=== PATIENT | female | born 1980 | race Caucasian/White ===

== ENCOUNTER → 2018-10-01 | Emergency (ER) | payer BC, SELFPAY ==
--- OUTSIDE RECORDS SUMMARY | 2018-10-01 01:14 | XMS REPORT ---
:1980 [facility] Address [address] [place] [address] Dr. June [address] [place] [id number] Care Team Providers Name Role Phone Unavailable Unavailable Unavailable Problems This patient has no known problems. Allergies, Adverse Reactions, Alerts This patient has no known allergies or adverse reactions. Medications This patient has no known medications.
== END ==
LOC: ER 01:13
DX: L60.0 Ingrowing nail (principal)

== ENCOUNTER 2018-10-06 10:32 | Emergency (ER) | payer BC ==
--- OUTSIDE RECORDS SUMMARY | 2018-10-06 10:33 | XMS REPORT ---
:1980 [facility] Address [address] [place] [address] Dr. Santana. [address] [place] [id number] Care Team Providers Name Role Phone Unavailable Unavailable Unavailable Problems This patient has no known problems. Allergies, Adverse Reactions, Alerts This patient has no known allergies or adverse reactions. Medications This patient has no known medications.
--- NOTE | 2018-10-06 11:33 | ER ---
Nurse's Notes [facility] Name: Tomasa Dahl Age: 37 yrs Sex: Female : 1980 Arrival Date: 10/06/2018 Time: 10:35 Bed 11 Private MD: Figueroa Young V Diagnosis: Acute bronchitis Presentation: 10/06 10:37 Presenting complaint: Patient states: Body aches, cough, headache, shortness of breath aj1 for the past 2 days. Transition of care: patient was not received from another setting of care. Onset of symptoms was October 04, 2017. Risk Assessment: Do you want to hurt yourself or someone else? Patient reports no desire to harm self or others. Initial Sepsis Screen: Does the patient meet any 2 criteria? No. Patient's initial sepsis screen is negative. Does the patient have a suspected source of infection? Yes: Productive cough/pneumonia. Care prior to arrival: None. 10:37 Method Of Arrival: Ambulatory aj1 10:37 Acuity: AMY 4 aj1 Triage Assessment: 10:38 General: Appears in no apparent distress. comfortable, Behavior is calm, cooperative, aj1 appropriate for age. Pain: Complains of pain in face Pain currently is 9 out of 10 on a pain scale. EENT: Reports nasal congestion nasal discharge. Neuro: Level of Consciousness is awake, alert, obeys commands. Cardiovascular: Patient's skin is warm and dry. Respiratory: Airway is patent Respiratory effort is even, unlabored, Respiratory pattern is regular, symmetrical, Parent/caregiver reports the patient having shortness of breath cough that is hacking, persistent. 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 - Social history:: Smoking status: Patient/guardian denies using tobacco. - Ebola Screening: : Patient denies travel to an Ebola-affected area in the 21 days before illness onset. Screenin:20 Abuse screen: Denies threats or abuse. Denies injuries from another. Nutritional aj1 screening: No deficits noted. Tuberculosis screening: No symptoms or risk factors identified. 12:14 Fall Risk None identified. hb Assessment: 11:20 General: Appears in no apparent distress. uncomfortable, ill, Behavior is calm, aj1 cooperative, appropriate for age. Pain: Complains of pain in face. Neuro: Level of Consciousness is awake, alert, obeys commands, Oriented to person, place, time, situation, Gait is steady, Speech is normal, Facial symmetry appears normal, Reports headache. Cardiovascular: Patient's skin is warm and dry. Respiratory: Reports shortness of breath cough that is hacking, persistent Airway is patent Respiratory effort is even, unlabored, Respiratory pattern is regular, symmetrical, Breath sounds are clear bilaterally. GI: No signs and/or symptoms were reported involving the gastrointestinal system. : No signs and/or symptoms were reported regarding the genitourinary system. EENT: Reports nasal congestion nasal discharge. Derm: No signs and/or symptoms reported regarding the dermatologic system. Skin is pink, warm \T\ dry. normal. Musculoskeletal: No signs and/or symptoms reported regarding the musculoskeletal system. Circulation, motion, and sensation intact. Vital Signs: 10:38 BP 135 / 84; Pulse 89; Resp 18; Temp 99.0(TE); Pulse Ox 98% on R/A; Weight 67.13 kg aj1 (R); Height 5 ft. 4 in. (162.56 cm) (R); Pain 8/10; 10:38 Body Mass Index 25.40 (67.13 kg, 162.56 cm) aj1 ED Course: 10:35 Patient arrived in ED. mr 10:35 Figueroa Young MD is Private Physician. mr 10:38 Triage completed. aj1 10:38 Arm band placed on Patient placed in an exam room. aj1 10:41 Deepak Scott PA is PHCP. jmm 10:41 Ori Dowd MD is Attending Physician. jmm 11:20 Fawn Glover, NINO is Primary Nurse. aj1 11:20 Patient has correct armband on for positive identification. Bed in low position. Call aj1 light in reach. Side rails up X 1. 11:20 No provider procedures requiring assistance completed. aj1 11:32 Figueroa Young MD is Referral Physician. jmm 12:14 Patient did not have IV access during this emergency room visit. hb Administered Medications: 12:01 Drug: Dexamethasone 10 mg Route: IM; Site: right deltoid; hb 12:13 Follow up: Response: No adverse reaction hb Outcome: 11:33 Discharge ordered by . gracie 12:13 Discharged to home ambulatory, with family. hb 12:13 Condition: stable 12:13 Discharge instructions given to patient, family, Instructed on discharge instructions, follow up and referral plans. medication usage, Demonstrated understanding of instructions, follow-up care, medications, Prescriptions given X 2. 12:14 Patient left the ED. hb Signatures: Fawn Glover, RN RN aj1 Deepak Scott PA PA jmm Rivera, Mary mr Baxter, Heather, RN RN hb
--- NOTE | 2018-10-06 11:34 | EDPHYS ---
Physician Documentation [facility] Name: Tomasa Dahl Age: 37 yrs Sex: Female : 1980 Arrival Date: 10/06/2018 Time: 10:35 Bed 11 Private MD: Figueroa Young V ED Physician Ori Dowd HPI: 10/06 10:45 This 37 yrs old Female presents to ER via Ambulatory with complaints of Flu jmm Symptoms. 10:45 The patient or guardian reports cough. Onset: The symptoms/episode began/occurred jmm gradually, 2 day(s) ago. Modifying factors: The symptoms are alleviated by nothing. the symptoms are aggravated by nothing. Associated signs and symptoms: Pertinent positives: fever. This is a 37 year old female with a history of anemia and migraine headaches that presents to the ED with complains of headache, cough, congestion, fever, chills for the past 2 day. Patient states headache similar to previous headaches. Denies vomiting or abdominal pain. . 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 - Social history:: Smoking status: Patient/guardian denies using tobacco. - Ebola Screening: : Patient denies travel to an Ebola-affected area in the 21 days before illness onset. ROS: 10:45 Neck: Negative for injury, pain, and swelling, Cardiovascular: Negative for chest pain, jmm palpitations, and edema. 10:45 Constitutional: Positive for body aches, fever. 10:45 ENT: Positive for rhinorrhea, sinus congestion, sinus pain. 10:45 Respiratory: Positive for cough. 10:45 All other systems are negative. Exam: 10:45 Constitutional: This is a well developed, well nourished patient who is awake, alert, jmm and in no acute distress. Head/Face: atraumatic. Eyes: EOMI, no conjunctival erythema appreciated ENT: Moist Mucus Membranes Neck: Trachea midline, Supple Chest/axilla: Normal chest wall appearance and motion. Cardiovascular: Regular rate and rhythm. No edema appreciated Respiratory: Normal respirations, no respiratory distress appreciated Abdomen/GI: Non distended, soft 10:45 Skin: General appearance color normal MS/ Extremity: Moves all extremities, no obvious deformities appreciated, no edema noted to the lower extremities Neuro: Awake and alert, normal gait Psych: Behavior is normal, Mood is normal, Patient is cooperative and pleasant 10:45 Respiratory: the patient does not display signs of respiratory distress, Respirations: normal, Breath sounds: are clear throughout. 10:45 Abdomen/GI: Vital Signs: 10:38 BP 135 / 84; Pulse 89; Resp 18; Temp 99.0(TE); Pulse Ox 98% on R/A; Weight 67.13 kg aj1 (R); Height 5 ft. 4 in. (162.56 cm) (R); Pain 8/10; 10:38 Body Mass Index 25.40 (67.13 kg, 162.56 cm) aj1 MDM: 10:45 Patient medically screened. [facility] 11:30 Data reviewed: vital signs, nurses notes. Data interpreted: Pulse oximetry: on room air jmm is 98 %. Interpretation: normal. Counseling: I had a detailed discussion with the patient and/or guardian regarding: the historical points, exam findings, and any diagnostic results supporting the discharge/admit diagnosis, lab results, the need for outpatient follow up, to return to the emergency department if symptoms worsen or persist or if there are any questions or concerns that arise at home. ED course: Patient is alert and non toxic in appearance in the ED. Lungs CTA. Neck is supple, I do not suspect meningitis. Patient prescribed oral antibiotics and advised to return to the ED if she develops shortness of breath or worsening symptoms. Patient understood and agrees with the plan of care. . 10/06 10:41 Order name: Flu; Complete Time: 11:30 aj1 Administered Medications: 12:01 Drug: Dexamethasone 10 mg Route: IM; Site: right deltoid; hb 12:13 Follow up: Response: No adverse reaction hb Disposition: 13:33 Co-signature as Attending Physician, Ori Dowd MD. rn Disposition: 10/06/18 11:33 Discharged to Home. Impression: Acute bronchitis. - Condition is Stable. - Discharge Instructions: Acute Bronchitis, Adult. - Prescriptions for Zithromax Z- Benjamin 250 mg Oral Tablet - take 1 tablet by ORAL route as directed for 5 days Day 1 - take two (2) tablets one time. Day 2, 3, 4 , 5 take one (1) tablet once daily.; 6 tablet. Albuterol Sulfate 90 mcg/actuation - inhale 1-2 puff by INHALATION route every 4-6 hours; 1 Inhaler. - Medication Reconciliation Form, Thank You Letter, Antibiotic Education, Prescription Opioid Use, Work release form form. - Follow up: Figueroa Young MD; When: 2 - 3 days; Reason: Recheck today's complaints, Continuance of care, Re-evaluation by your physician. Signatures: Dispatcher [employer] EDFawn Locke RN RN aj1 Deepak Scott PA PA jmm Nieto, Roman, MD MD rn Baxter, Heather, RN RN hb Corrections: (The following items were deleted from the chart) 12:14 11:33 10/06/2018 11:33 Discharged to Home. Impression: Acute bronchitis. Condition is hb Stable. Forms are Medication Reconciliation Form, Thank You Letter, Antibiotic Education, Prescription Opioid Use. Follow up: Figueroa Young; When: 2 - 3 days; Reason: Recheck today's complaints, Continuance of care, Re-evaluation by your physician. gracie
[2018-10-06] MEDS ORDERED: DEXAMETHASONE 10 MG/ML VIAL ONE (12:15)
[2018-10-06 12:25] VITALS: BP 135/84; TEMP 99; O2SAT 98
== END 2018-10-06 12:14 | disposition home or self-care (01) ==
LOC: ER 10:32
DX: J20.9 Acute bronchitis, unspecified (principal); Z88.6 Allergy status to analgesic agent
CPT/HCPCS: 87804; 96372; 99283; J1100

== ENCOUNTER 2018-11-16 15:52 | Emergency (ER) | payer BC ==
--- OUTSIDE RECORDS SUMMARY | 2018-11-16 16:53 | XMS REPORT ---
:1980 [facility] Address [address] [place] [address] Dr. Santana. [address] [place] [id number] Care Team Providers Name Role Phone Unavailable Unavailable Unavailable Problems This patient has no known problems. Allergies, Adverse Reactions, Alerts This patient has no known allergies or adverse reactions. Medications This patient has no known medications.
[2018-11-16 18:11] LABS: Absolute Lymphocytes (CBC) 1.1 K/uL (0.7-4.9); Absolute Monocytes 0.9 K/uL (0.1-1.3); Absolute Neutrophil 1.9 K/uL (1.8-8.0); Basophils % 0.6 % (0-1.3); Eosinophils % 3.2 % (0-4.4); Hematocrit 31.2 % (36.0-45.0); Lymphocytes % 27.4 % (15.3-44.8); Monocytes % 22.2 % (3.3-12.3); RBC Red Blood Cell Count 4.12 M/uL (3.86-4.86)
[2018-11-16] MEDS ORDERED: NA CHLORIDE 0.9% 1,000 ML ONE (18:12)
[2018-11-16 18:26] LABS: BUN Blood Urea Nitrogen 8 mg/dL (7-18); Bicarbonate 28 mmol/L (21-32); Glucose Level 71 mg/dL (74-106); Potassium 3.5 mmol/L (3.5-5.1); Sodium Level 143 mmol/L (136-145)
--- NOTE | 2018-11-16 19:08 | ER ---
Nurse's Notes [facility] Name: Tomasa Dahl Age: 37 yrs Sex: Female : 1980 Arrival Date: 11/16/2018 Time: 15:53 Bed 28 Private MD: Figueroa Young V Diagnosis: Abnormal uterine and vaginal bleeding, unspecified;Anemia, unspecified Presentation: 11/16 16:20 Presenting complaint: Patient states: weakness, light headed, pad are drenched, 3 pads ch an hour. vasectomy, denies . Transition of care: patient was not received from another setting of care. Onset of symptoms was November 16, 2018. Risk Assessment: Do you want to hurt yourself or someone else? Patient reports no desire to harm self or others. Initial Sepsis Screen: Does the patient meet any 2 criteria? No. Patient's initial sepsis screen is negative. Does the patient have a suspected source of infection? No. Patient's initial sepsis screen is negative. Care prior to arrival: Medication(s) given: depo to treat bleeding, due for another one;. 16:20 Method Of Arrival: Ambulatory 16:20 Acuity: AMY 3 ch Triage Assessment: 16:22 General: Appears in no apparent distress. comfortable, Behavior is calm, cooperative, ch appropriate for age. Pain: Denies pain. : Reports vaginal bleeding that is bright red, with clots, heavy flow. 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 Patient has never been vaccinated. - Social history:: Smoking status: Patient uses tobacco products, denies chronic smoking, but will smoke occasionally, Patient/guardian denies using alcohol, street drugs. - Ebola Screening: : Patient negative for fever greater than or equal to 101.5 degrees Fahrenheit, and additional compatible Ebola Virus Disease symptoms Patient denies exposure to infectious person Patient denies travel to an Ebola-affected area in the 21 days before illness onset No symptoms or risks identified at this time. - Family history:: not pertinent. Screenin:07 Abuse screen: Denies threats or abuse. Denies injuries from another. Nutritional rv screening: No deficits noted. Tuberculosis screening: No symptoms or risk factors identified. Fall Risk None identified. Assessment: 18:14 General: Appears in no apparent distress. comfortable, Behavior is calm, cooperative. rv Pain: Denies pain. Neuro: Level of Consciousness is awake, alert, obeys commands, Oriented to person, place, time, situation. Cardiovascular: Capillary refill < 3 seconds. Respiratory: Airway is patent. GI: Abdomen is flat. : Vaginal discharge is Reports vaginal bleeding that is heavy flow. EENT: No signs and/or symptoms were reported regarding the EENT system. Derm: Skin is intact. Derm: No signs and/or symptoms reported regarding the dermatologic system. Vital Signs: 16:22 BP 126 / 84; Pulse 81; Resp 16; Temp 97.4; Pulse Ox 99% on R/A; Weight 67.13 kg; Height 5 ft. 4 in. (162.56 cm); Pain 0/10; 18:16 BP 134 / 96 RA; Pulse 71; Resp 18 S; Pulse Ox 100% on R/A; rv 18:30 BP 134 / 90 RA; Pulse 77; Resp 18 S; Pulse Ox 100% on R/A; rv 19:00 BP 124 / 88 RA; Pulse 67; Resp 17 S; Pulse Ox 100% on R/A; rv 19:15 BP 114 / 82 RA; Pulse 74; Resp 16 S; Pulse Ox 100% on R/A; rv 16:22 Body Mass Index 25.40 (67.13 kg, 162.56 cm) ED Course: 15:53 Patient arrived in ED. as 15:53 Shayne Clemons MD is Private Physician. as 15:53 Figueroa Young MD is Private Physician. as 16:21 Triage completed. 16:22 Arm band placed on left wrist. Patient placed in waiting room. 17:42 Murali Tipton MD is Attending Physician. kushal 17:50 Inserted saline lock: 20 gauge in right antecubital area, using aseptic technique. rv Blood collected. 18:08 Patient has correct armband on for positive identification. Placed in gown. Bed in low rv position. Side rails up X 1. Adult w/ patient. Pulse ox on. NIBP on. 18:14 Abo/rh Typing Sent. rv 18:14 Basic Metabolic Panel Sent. rv 18:14 CBC with Diff Sent. rv 18:45 Ultrasound completed. Patient tolerated well. sg3 18:47 US Transvaginal Study (Probe) In Process Unspecified. EDMS 19:05 Figueroa Young MD is Referral Physician. kushal 19:08 Justice Andrade MD is Referral Physician. kushal 19:33 No provider procedures requiring assistance completed. IV discontinued, bleeding rv controlled, No redness/swelling at site. Pressure dressing applied. Administered Medications: 18:06 Drug: NS 0.9% 1000 ml Route: IV; Rate: 1 bolus; Site: left antecubital; rv 19:32 Follow up: IV Status: Completed infusion rv 19:20 Drug: DepoProvera - medroxyPROGESTERone 150 mg Route: IM; Site: left deltoid; rv 19:34 Follow up: Response: Medication administered at discharge. rv Outcome: 19:07 Discharge ordered by . kushal 19:33 Discharged to home ambulatory. rv 19:33 Condition: good 19:33 Discharge instructions given to patient, family, Instructed on discharge instructions, follow up and referral plans. medication usage, Demonstrated understanding of instructions, follow-up care, medications, Prescriptions given X 1. 19:34 Patient left the ED. rv Signatures: Dispatcher [employer] Francine Rausch, RN Murali Calderon ch, MD MD cha Martinez, Amelia as Godinez, Sarah sg3 Norbert Hung RN RN rv
--- NOTE | 2018-11-16 19:08 | EDPHYS ---
Physician Documentation [facility] Name: Tomasa Dahl Age: 37 yrs Sex: Female : 1980 Arrival Date: 11/16/2018 Time: 15:53 Bed 28 Private MD: Figueroa Young V ED Physician Murali Tipton HPI: 11/16 18:15 This 37 yrs old Female presents to ER via Ambulatory with complaints of kushal Vaginal Bleeding, Weakness. 18:15 The patient presents with vaginal bleeding that is. Onset: The symptoms/episode kushal began/occurred today. Modifying factors: The symptoms are alleviated by nothing, the symptoms are aggravated by nothing. Associated signs and symptoms: Pertinent positives:. Severity of symptoms: At their worst the symptoms were mild, in the emergency department the symptoms are unchanged. The patient is sexually active. The patient has not experienced similar symptoms in the past. 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 Patient has never been vaccinated. - Social history:: Smoking status: Patient uses tobacco products, denies chronic smoking, but will smoke occasionally, Patient/guardian denies using alcohol, street drugs. - Ebola Screening: : Patient negative for fever greater than or equal to 101.5 degrees Fahrenheit, and additional compatible Ebola Virus Disease symptoms Patient denies exposure to infectious person Patient denies travel to an Ebola-affected area in the 21 days before illness onset No symptoms or risks identified at this time. - Family history:: not pertinent. ROS: 18:15 Constitutional: Negative for fever, chills, and weight loss, Eyes: Negative for injury, kushal pain, redness, and discharge, ENT: Negative for injury, pain, and discharge, Neck: Negative for injury, pain, and swelling, Cardiovascular: Negative for chest pain, palpitations, and edema, Respiratory: Negative for shortness of breath, cough, wheezing, and pleuritic chest pain, Abdomen/GI: Negative for abdominal pain, nausea, vomiting, diarrhea, and constipation, Back: Negative for injury and pain, MS/Extremity: Negative for injury and deformity, Skin: Negative for injury, rash, and discoloration, Neuro: Negative for headache, weakness, numbness, tingling, and seizure, Psych: Negative for depression, anxiety, suicide ideation, homicidal ideation, and hallucinations, Allergy/Immunology: Negative for hives, rash, and allergies, Endocrine: Negative for neck swelling, polydipsia, polyuria, polyphagia, and marked weight changes, Hematologic/Lymphatic: Negative for swollen nodes, abnormal bleeding, and unusual bruising. 18:15 : Positive for vaginal bleeding. Exam: 18:15 Constitutional: This is a well developed, well nourished patient who is awake, alert, kushal and in no acute distress. Head/Face: Normocephalic, atraumatic. Eyes: Pupils equal round and reactive to light, extra-ocular motions intact. Lids and lashes normal. Conjunctiva and sclera are non-icteric and not injected. Cornea within normal limits. Periorbital areas with no swelling, redness, or edema. ENT: Nares patent. No nasal discharge, no septal abnormalities noted. Tympanic membranes are normal and external auditory canals are clear. Oropharynx with no redness, swelling, or masses, exudates, or evidence of obstruction, uvula midline. Mucous membranes moist. Neck: Trachea midline, no thyromegaly or masses palpated, and no cervical lymphadenopathy. Supple, full range of motion without nuchal rigidity, or vertebral point tenderness. No Meningismus. Chest/axilla: Normal chest wall appearance and motion. Nontender with no deformity. No lesions are appreciated. Cardiovascular: Regular rate and rhythm with a normal S1 and S2. No gallops, murmurs, or rubs. Normal PMI, no JVD. No pulse deficits. Respiratory: Lungs have equal breath sounds bilaterally, clear to auscultation and percussion. No rales, rhonchi or wheezes noted. No increased work of breathing, no retractions or nasal flaring. Abdomen/GI: Soft, non-tender, with normal bowel sounds. No distension or tympany. No guarding or rebound. No evidence of tenderness throughout. Back: No spinal tenderness. No costovertebral tenderness. Full range of motion. Skin: Warm, dry with normal turgor. Normal color with no rashes, no lesions, and no evidence of cellulitis. MS/ Extremity: Pulses equal, no cyanosis. Neurovascular intact. Full, normal range of motion. Neuro: Awake and alert, GCS 15, oriented to person, place, time, and situation. Cranial nerves II-XII grossly intact. Motor strength 5/5 in all extremities. Sensory grossly intact. Cerebellar exam normal. Normal gait. Psych: Awake, alert, with orientation to person, place and time. Behavior, mood, and affect are within normal limits. Vital Signs: 16:22 BP 126 / 84; Pulse 81; Resp 16; Temp 97.4; Pulse Ox 99% on R/A; Weight 67.13 kg; Height ch 5 ft. 4 in. (162.56 cm); Pain 0/10; 18:16 BP 134 / 96 RA; Pulse 71; Resp 18 S; Pulse Ox 100% on R/A; rv 18:30 BP 134 / 90 RA; Pulse 77; Resp 18 S; Pulse Ox 100% on R/A; rv 19:00 BP 124 / 88 RA; Pulse 67; Resp 17 S; Pulse Ox 100% on R/A; rv 19:15 BP 114 / 82 RA; Pulse 74; Resp 16 S; Pulse Ox 100% on R/A; rv 16:22 Body Mass Index 25.40 (67.13 kg, 162.56 cm) ch MDM: 17:42 Patient medically screened. [facility] 18:17 Data reviewed: vital signs, nurses notes, lab test result(s), radiologic studies, [facility] ultrasound. 11/16 17:44 Order name: Abo/rh Typing [facility] 11/16 17:44 Order name: Basic Metabolic Panel [facility] 11/16 17:44 Order name: CBC with Diff [facility] 11/16 17:44 Order name: Type And Screen [facility] 11/16 17:44 Order name: Basic Metabolic Panel; Complete Time: 18:28 [facility] 11/16 17:44 Order name: US Transvaginal Study (Probe) [facility] 11/16 17:44 Order name: CBC with Automated Diff [facility] 11/16 18:13 Order name: Urine Dipstick--Ancillary (enter results) 11/16 18:14 Order name: Urine --Ancillary (enter results) 11/16 18:14 Order name: Urine --Ancillary [facility] 11/16 18:31 Order name: CBC Smear Scan [facility] 11/16 17:38 Order name: Urine Test (obtain specimen); Complete Time: 18:14 [facility] 11/16 17:39 Order name: Urine Dipstick-Ancillary (obtain specimen); Complete Time: 18:14 [facility] 11/16 17:44 Order name: IV Saline Lock; Complete Time: 18:07 [facility] 11/16 17:44 Order name: Labs collected and sent; Complete Time: 18:07 [facility] 11/16 17:44 Order name: NPO; Complete Time: 18: [facility] 11/16 18:46 Order name: PO challenge: juice; Complete Time: 19:11 [facility] Administered Medications: 18:06 Drug: NS 0.9% 1000 ml Route: IV; Rate: 1 bolus; Site: left antecubital; rv 19:32 Follow up: IV Status: Completed infusion rv 19:20 Drug: DepoProvera - medroxyPROGESTERone 150 mg Route: IM; Site: left deltoid; rv 19:34 Follow up: Response: Medication administered at discharge. rv Disposition: 11/16/18 19:07 Discharged to Home. Impression: Abnormal uterine and vaginal bleeding, unspecified, Anemia, unspecified. - Condition is Stable. - Discharge Instructions: Abnormal Uterine Bleeding, Iron Deficiency Anemia, Adult, Anemia, Nonspecific, Iron-Rich Diet, Dysmenorrhea, Abnormal Uterine Bleeding, [id number], Dysmenorrhea, [id number]. - Prescriptions for Ferrous Sulfate 325 mg (65 mg Iron) Oral Tablet - take 1 tablet by ORAL route every 8 hours; 90 tablet. - Medication Reconciliation Form, Thank You Letter, Antibiotic Education, Prescription Opioid Use form. - Follow up: Figueroa Young MD; When: 2 - 3 days; Reason: Recheck today's complaints, Continuance of care, Re-evaluation by your physician. Follow up: Private Physician; When: 2 - 3 days; Reason: Recheck today's complaints, Continuance of care, Re-evaluation by your physician. Follow up: Justice Andrade MD; When: 2 - 3 days; Reason: Recheck today's complaints, Re-evaluation by your physician. - Problem is new. - Symptoms have improved. Signatures: Dispatcher [employer] EDFrancine Adair RN RN ch Anderson, Corey, MD MD cha Mickail, Joel, PA PA jmm Vicente, Norbert, RN RN rv Corrections: (The following items were deleted from the chart) 18:20 17:44 ABO/RH typing ordered. [facility] EDOR 19:08 19:07 11/16/2018 19:07 Discharged to Home. Impression: Abnormal uterine and vaginal kushal bleeding, unspecified; Anemia, unspecified. Condition is Stable. Forms are Medication Reconciliation Form, Thank You Letter, Antibiotic Education, Prescription Opioid Use. Follow up: Figueroa Young; When: 2 - 3 days; Reason: Recheck today's complaints, Continuance of care, Re-evaluation by your physician. Follow up: Private Physician; When: 2 - 3 days; Reason: Recheck today's complaints, Continuance of care, Re-evaluation by your physician. Problem is new. Symptoms have improved. kushal 19:34 19:08 11/16/2018 19:07 Discharged to Home. Impression: Abnormal uterine and vaginal rv bleeding, unspecified; Anemia, unspecified. Condition is Stable. Discharge Instructions: Abnormal Uterine Bleeding, Anemia, Nonspecific, Dysmenorrhea, Abnormal Uterine Bleeding, Grqy-xe-Feky, Dysmenorrhea, Xmdl-eq-Depm. Forms are Medication Reconciliation Form, Thank You Letter, Antibiotic Education, Prescription Opioid Use. Follow up: Figueroa Young; When: 2 - 3 days; Reason: Recheck today's complaints, Continuance of care, Re-evaluation by your physician. Follow up: Private Physician; When: 2 - 3 days; Reason: Recheck today's complaints, Continuance of care, Re-evaluation by your physician. Follow up: Justice Andrade; When: 2 - 3 days; Reason: Recheck today's complaints, Re-evaluation by your physician. Problem is new. Symptoms have improved. kushal
[2018-11-16 19:18] LABS: Urine Blood 2+ (NEG); Urine Glucose NEGATIVE (NEG); Urine Protein NEGATIVE (NEG); Urine Specific Gravity 1.015 (1.005-1.030)
[2018-11-16] MEDS ORDERED: MEDROXYPROGEST ACET 150 MG/ML IM ONE (19:30)
--- NOTE | 2018-11-16 19:51 | RAD REPORT ---
EXAM DESCRIPTION: US - Transvaginal Study Probe - 11/16/2018 6:47 pm CLINICAL HISTORY: Abdominal pain, pelvic pain COMPARISON: July 2014 TECHNIQUE: Endovaginal sonography was performed. FINDINGS: A 2.8 centimeter anechoic left ovarian cyst is present. There is a trace amount of free fl uid adjacent to the left ovary. No other finding to suggest cyst rupture or hemorrhage. Doppler evalu ation shows normal blood flow within the left ovarian stroma. No right ovary abnormality. Normal blood flow seen in the right ovary. Endometrium is thickened at 17 mm. No discrete endometrial mass or polyp. No myometrial mass. Uterus is normal size. IMPRESSION: Approximately 2.8 centimeter left ovarian cyst without rupture or hemorrhage finding. Minimal free fluid is present within physiologic limits.
[2018-11-16 20:23] LABS: Anisocytosis 1+; Blood Morphology Comment NOTED (NOT SEEN); Hypochromasia 1+; Macrocytosis 1+; Ovalocytes 1+; Platelet Estimate ADEQ; Poikilocytosis 1+
[2018-11-16 20:38] VITALS: TEMP 97.4
[2018-11-16 20:42] VITALS: O2SAT 100
[2018-11-16 20:45] VITALS: BP 114/82
== END 2018-11-16 19:34 | disposition home or self-care (01) ==
LOC: ER 15:52
DX: D64.9 Anemia, unspecified (principal); Z72.0 Tobacco use; Z88.6 Allergy status to analgesic agent
CPT/HCPCS: 36415; 76830; 80048; 81003; 81025; 85025; 86850; 86900; 86901; 96360; 96372; 99284; J1050; J7030

== ENCOUNTER 2021-07-18 14:00 | Emergency (ER) | payer BC, SELFPAY ==
--- NOTE | 2021-07-18 14:13 | ER ---
Nurse's Notes [facility] Name: Tomasa Dahl Age: 40 yrs Sex: Female : 1980 Arrival Date: 07/18/2021 Time: 14:02 Bed 10 Private MD: Diagnosis: Sciatica, right side Presentation: 07/18 14:10 Chief complaint: Patient states: right leg pain that began 1-2 days ago. Pt states "I aa5 think it's my sciatic nerve". Coronavirus screen: At this time, the client does not indicate any symptoms associated with coronavirus-19. Ebola Screen: No symptoms or risks identified at this time. Initial Sepsis Screen: Does the patient meet any 2 criteria? No. Patient's initial sepsis screen is negative. Does the patient have a suspected source of infection? No. Patient's initial sepsis screen is negative. Risk Assessment: Do you want to hurt yourself or someone else? Patient reports no desire to harm self or others. Onset of symptoms was July 2021. 14:10 Method Of Arrival: Ambulatory aa5 14:10 Acuity: AMY 4 aa5 Historical: - Allergies: 14:12 No Known Allergies; aa5 - PMHx: 14:11 Anemia; aa5 - PSHx: 14:11 None; aa5 - Immunization history:: Adult Immunizations unknown. - Social history:: Smoking status: Patient denies any tobacco usage or history of. Assessment: 14:16 Reassessment: Patient is alert, oriented x 3, equal unlabored respirations, skin aa5 warm/dry/pink. Vital Signs: 14:10 BP 121 / 74; Pulse 75; Resp 16 S; Temp 98.0(TE); Pulse Ox 100% on R/A; Weight 58.97 kg aa5 (R); Height 5 ft. 4 in. (162.56 cm); 14:10 Body Mass Index 22.31 (58.97 kg, 162.56 cm) aa5 ED Course: 14:02 Patient arrived in ED. as 14:03 Miguelina Engle [facility]C [facility]. kb 14:03 Emerson Mejias MD is Attending Physician. kb 14:10 Arm band placed on. aa5 14:11 Triage completed. aa5 14:16 No provider procedures requiring assistance completed. Patient did not have IV access aa5 during this emergency room visit. Administered Medications: No medications were administered Outcome: 14:13 Discharge ordered by MD. tomlin 14:16 Discharged to home ambulatory, with significant other. aa5 14:16 Condition: stable 14:16 Discharge instructions given to patient, Instructed on discharge instructions, follow up and referral plans. medication usage, Demonstrated understanding of instructions, follow-up care, medications, Prescriptions given X 2. 14:16 Patient left the ED. aa5 Signatures: Miguelina Engle, CARLOS-C WILDLIFE BIOSTATION RESEARCH ECOLOGIST-Kaycee Adams Audri, RN RN aa5 Corrections: (The following items were deleted from the chart) 14:12 14:11 Allergies: Motrin; aa5 aa5 14:13 14:10 BP 121 / 74; Pulse 75bpm; Resp 16bpm; Spontaneous; Pulse Ox 100% RA; Temp 98.0F aa5 Temporal; aa5
--- NOTE | 2021-07-18 14:14 | EDPHYS ---
Physician Documentation [facility] Name: Tomasa Dahl Age: 40 yrs Sex: Female : 1980 Arrival Date: 07/18/2021 Time: 14:02 Bed 10 Private MD: ED Physician Emerson Mejias HPI: 07/18 14:38 This 40 yrs old Female presents to ER via Ambulatory with complaints of Leg kb Pain, Thigh Pain. 14:38 The patient presents with pain, tenderness. The complaints affect the right gluteal kb fold and right hamstring. Context: The problem was sustained at home, resulted from an unknown cause, the patient can fully bear weight, the patient is able to ambulate. The patient has not experienced similar symptoms in the past. The patient has not recently seen a physician. 14:39 Onset: The symptoms/episode began/occurred 2 day(s) ago. Modifying factors: The kb symptoms are alleviated by nothing. the symptoms are aggravated by nothing. Associated signs and symptoms: The patient has no apparent associated signs or symptoms. Treatment prior to arrival includes: no previous treatment. Severity of symptoms: At their worst the symptoms were moderate, in the emergency department the symptoms are unchanged. Pt reports sciatica for 2 days on right side. Historical: - Allergies: 14:12 No Known Allergies; aa5 - PMHx: 14:11 Anemia; aa5 - PSHx: 14:11 None; aa5 - Immunization history:: Adult Immunizations unknown. - Social history:: Smoking status: Patient denies any tobacco usage or history of. ROS: 14:40 Constitutional: Negative for fever, chills, and weight loss. kb 14:40 MS/extremity: Positive for pain, of the right hamstring and right gluteal fold. 14:40 All other systems are negative. Exam: 14:40 Constitutional: This is a well developed, well nourished patient who is awake, alert, kb and in no acute distress. Head/Face: Normocephalic, atraumatic. ENT: Moist Mucous membranes Respiratory: Respirations even and unlabored. No increased work of breathing, no retractions or nasal flaring. Back: No spinal tenderness. No costovertebral tenderness. Full range of motion. Skin: Warm, dry with normal turgor. Normal color. MS/ Extremity: Pulses equal, no cyanosis. Neurovascular intact. Full, normal range of motion. Neuro: Awake and alert, GCS 15, oriented to person, place, time, and situation. Moves all extremities. Normal gait. Psych: Awake, alert, with orientation to person, place and time. Behavior, mood, and affect are within normal limits. Vital Signs: 14:10 BP 121 / 74; Pulse 75; Resp 16 S; Temp 98.0(TE); Pulse Ox 100% on R/A; Weight 58.97 kg aa5 (R); Height 5 ft. 4 in. (162.56 cm); 14:10 Body Mass Index 22.31 (58.97 kg, 162.56 cm) aa5 MDM: 14:13 Patient medically screened. kb 14:39 Data reviewed: vital signs, nurses notes. Data interpreted: Pulse oximetry: on room air kb is 100 %. Interpretation: normal. Counseling: I had a detailed discussion with the patient and/or guardian regarding: the historical points, exam findings, and any diagnostic results supporting the discharge/admit diagnosis, the need for outpatient follow up, a family practitioner, to return to the emergency department if symptoms worsen or persist or if there are any questions or concerns that arise at home. Administered Medications: No medications were administered Disposition: 07/19 09:14 Co-signature as Attending Physician, Emerson Mejias MD I agree with the assessment and sp3 plan of care. Disposition Summary: 07/18/21 14:13 Discharge Ordered Location: Home kb Condition: Stable kb Diagnosis - Sciatica, right side kb Followup: kb - With: Emergency Department - When: As needed - Reason: Worsening of condition Followup: kb - With: Private Physician - When: 2 - 3 days - Reason: Recheck today's complaints, Continuance of care, Re-evaluation by your physician Discharge Instructions: - Discharge Summary Sheet kb - Sciatica, [id number] kb Forms: - Medication Reconciliation Form kb - Thank You Letter kb - Antibiotic Education kb - Prescription Opioid Use kb Prescriptions: - Prednisone 20 mg Oral Tablet - take 1 tablet by ORAL route once daily for 5 days; 5 tablet; Refills: 0, kb Product Selection Permitted - Cyclobenzaprine 10 mg Oral Tablet - take 1 tablet by ORAL route every 8 hours As needed; 21 tablet; Refills: 0, kb Product Selection Permitted Signatures: Miguelina Engle FNP-C BONDING MACHINE SETTER-Tiffany Estrada, RN RN aa5 Emerson Mejias MD MD sp3 Corrections: (The following items were deleted from the chart) 07/18 14:12 14:11 Allergies: Motrin; aa5 aa5
[2021-07-18 14:36] VITALS: BP 121/74; TEMP 98; O2SAT 100
--- OUTSIDE RECORDS SUMMARY | 2021-07-23 16:27 | XMS REPORT | Continuity of Care Document ---
:[address] [facility] t Address [address] [place] [address] Dr. June [address] [place] [id number] Care Team Providers Name Role Phone Unavailable Unavailable Unavailable Problems This patient has no known problems. Allergies, Adverse Reactions, Alerts This patient has no known allergies or adverse reactions. Medications This patient has no known medications. Procedures This patient has no known procedures. Results This patient has no known results.
== END 2021-07-18 14:16 | disposition home or self-care (01) ==
LOC: ER 14:00
DX: M54.31 Sciatica, right side (principal)
CPT/HCPCS: 99282

== ENCOUNTER 2021-08-07 20:16 | Emergency (ER) | payer SELFPAY ==
--- OUTSIDE RECORDS SUMMARY | 2021-08-07 20:19 | XMS REPORT | Continuity of Care Document ---
:1980 Author Organization [facility] t Address [address] [place] [address] Dr. June [address] [place] [id number] Care Team Providers Name Role Phone Unavailable Unavailable Unavailable Problems This patient has no known problems. Allergies, Adverse Reactions, Alerts This patient has no known allergies or adverse reactions. Medications This patient has no known medications. Procedures This patient has no known procedures. Results This patient has no known results.
[2021-08-07] MEDS ORDERED: KETOROLAC 30 MG/ML INJ ONE (21:11)
[2021-08-07] MEDS ORDERED: METOCLOPRAMIDE 10 MG/2mL INJ ONE (21:11)
[2021-08-07] MEDS ORDERED: DIPHENHYDRAMINE 50 MG/ML VIAL ONE (21:11)
[2021-08-07] MEDS ORDERED: NA CHLORIDE 0.9% 1,000 ML ONE (21:11)
--- NOTE | 2021-08-07 22:09 | ER ---
Nurse's Notes [facility] [place], [place] Name: Tomasa Dahl Age: 40 yrs Sex: Female : 1980 Arrival Date: 08/07/2021 Time: 20:19 Bed 16 Private MD: Diagnosis: Headache Presentation: 08/07 20:30 Chief complaint: Patient states: Headache X 2 days with photophobia. Coronavirus ld1 screen: At this time, the client does not indicate any symptoms associated with coronavirus-19. Ebola Screen: No symptoms or risks identified at this time. Initial Sepsis Screen: Does the patient meet any 2 criteria? No. Patient's initial sepsis screen is negative. Does the patient have a suspected source of infection? No. Patient's initial sepsis screen is negative. Risk Assessment: Do you want to hurt yourself or someone else? Patient reports no desire to harm self or others. Onset of symptoms was August 07, 2021. 20:30 Method Of Arrival: Ambulatory ld1 20:30 Acuity: AMY 4 ld1 Triage Assessment: 20:31 Headache History: The patient has had previous headaches and this one is similar to ld1 previous episodes. General: Appears in no apparent distress. comfortable, Behavior is calm, cooperative, appropriate for age. Pain: Complains of pain in face Pain does not radiate. Pain currently is 7 out of 10 on a pain scale. Quality of pain is described as throbbing, Pain began 2-3 days ago. Is continuous, Also complains of no other associated symptoms. EENT: No signs and/or symptoms were reported regarding the EENT system. Neuro: Level of Consciousness is awake, alert, obeys commands, Oriented to person, place, time, situation. Cardiovascular: Capillary refill < 3 seconds Patient's skin is warm and dry. Respiratory: Airway is patent Respiratory effort is even, unlabored, Respiratory pattern is regular, symmetrical. GI: Abdomen is flat, non-distended. : No signs and/or symptoms were reported regarding the genitourinary system. Derm: No signs and/or symptoms reported regarding the dermatologic system. Musculoskeletal: No signs and/or symptoms reported regarding the musculoskeletal system. 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 - Social history:: Smoking status: Patient denies any tobacco usage or history of. Patient/guardian denies using alcohol. Screenin:09 Abuse screen: Denies threats or abuse. Denies injuries from another. Nutritional kd3 screening: No deficits noted. Tuberculosis screening: No symptoms or risk factors identified. Fall Risk IV access (20 points). Assessment: 22:26 Reassessment: Patient is alert, oriented x 3, equal unlabored respirations, skin bb warm/dry/pink. pt resting quietly, IV site intact, patent, with fluids infusing, family at bedside pt awaiting completion of IV fluids prior to discharge states she has no pain now. 22:34 Reassessment: Patient is alert, oriented x 3, equal unlabored respirations, skin bb warm/dry/pink. pt verbalized understanding of and agrees to plan of care discharge instructions given pt ambulated with steady gait to exit accompanied by spouse. Vital Signs: 20:30 BP 139 / 76; Pulse 66; Resp 18; Temp 98.3(TE); Pulse Ox 100% on R/A; Weight 58.97 kg; ld1 Height 5 ft. 4 in. (162.56 cm); Pain 0/10; 22:08 BP 135 / 83; Resp 18; Pulse Ox 100% on R/A; kd3 20:30 Body Mass Index 22.31 (58.97 kg, 162.56 cm) ld1 Sanya Coma Score: 22:08 Eye Response: spontaneous(4). Verbal Response: oriented(5). Motor Response: obeys kb commands(6). Total: 15. ED Course: 20:19 Patient arrived in ED. bp1 20:27 Miguelina Engle FNP-C is PHCP. kb 20:28 Wero Rodriguez MD is Attending Physician. kb 20:31 Triage completed. ld1 20:31 Arm band placed on left wrist. ld1 21:57 Maryjo Jim, NINO is Primary Nurse. kd3 22:09 Patient has correct armband on for positive identification. Bed in low position. Call kd3 light in reach. Side rails up X 1. 22:09 No provider procedures requiring assistance completed. kd3 22:26 IV is patent, is intact, with fluids infusing freely. bb 22:35 IV discontinued, intact, bleeding controlled, No redness/swelling at site. Pressure bb dressing applied. Administered Medications: 21:57 Drug: NS 0.9% 1000 ml Route: IV; Rate: 1000 ml; Site: left hand; kd3 22:33 Follow up: IV Status: Completed infusion; IV Intake: 900ml bb 21:58 Drug: Ketorolac 30 mg Route: IVP; Site: left hand; kd3 22:10 Follow up: Response: No adverse reaction kd3 22:28 Follow up: Response: No adverse reaction; Pain is decreased bb 21:59 Drug: Reglan (metoCLOPramide) 10 mg Route: IVP; Site: left hand; kd3 22:10 Follow up: Response: No adverse reaction kd3 22:28 Follow up: Response: No adverse reaction; Pain is decreased bb 21:59 Drug: Benadryl (diphenhydrAMINE) 12.5 mg Route: IVP; Site: left hand; kd3 22:10 Follow up: Response: No adverse reaction kd3 22:28 Follow up: Response: No adverse reaction; Pain is decreased bb Intake: 22:33 IV: 900ml; Total: 900ml. bb Outcome: 22:08 Discharge ordered by . kb 22:35 Discharged to home ambulatory, with family. bb 22:35 Condition: stable 22:35 Discharge instructions given to patient, Instructed on discharge instructions, follow up and referral plans. Demonstrated understanding of instructions, follow-up care. 22:35 Patient left the ED. bb Signatures: Miguelina Engle, CHIEF PROCUREMENT OFFICER-C CARLOS-Tiffanie Arriaga RN RN bb Linda Salcedo Lauren RN RN ld1 Maryjo Jim RN RN kd3 Corrections: (The following items were deleted from the chart) 20:32 20:31 PSHx: None; ld1 ld1 20:32 20:31 PSHx: Appendectomy; ld1 ld1
--- NOTE | 2021-08-07 22:09 | EDPHYS ---
Physician Documentation [facility] Name: Tomasa Dahl Age: 40 yrs Sex: Female : 1980 Arrival Date: 08/07/2021 Time: 20:19 Bed 16 Private MD: ED Physician Wero Rodriguez HPI: 08/07 22:10 This 40 yrs old Female presents to ER via Ambulatory with complaints of Headache > kb 24hrs Old. 22:10 The patient complains of pain to the right christian. The patient describes the headache kb as constant. Onset: The symptoms/episode began/occurred 2 day(s) ago. Associated signs and symptoms: Pertinent positives: Photophobia. Severity of symptoms: At its worst the pain was mild, moderate, in the emergency department the pain is unchanged. Headache History: The patient has had previous headaches and this one is similar to previous episodes. The symptoms are alleviated by nothing. the symptoms are aggravated by lights. The patient has experienced similar episodes in the past. The patient has not recently seen a physician. 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 - Social history:: Smoking status: Patient denies any tobacco usage or history of. Patient/guardian denies using alcohol. ROS: 22:10 Constitutional: Negative for fever, chills, and weight loss. kb 22:10 Neuro: Positive for headache. 22:10 All other systems are negative. Exam: 22:10 Constitutional: This is a well developed, well nourished patient who is awake, alert, kb and in no acute distress. Head/Face: Normocephalic, atraumatic. Eyes: Pupils equal round and reactive to light, extra-ocular motions intact. Lids and lashes normal. Conjunctiva and sclera are non-icteric and not injected. Cornea within normal limits. Periorbital areas with no swelling, redness, or edema. ENT: Moist Mucous membranes Cardiovascular: Regular rate and rhythm with a normal S1 and S2. No gallops, murmurs, or rubs. No pulse deficits. Respiratory: Respirations even and unlabored. No increased work of breathing, no retractions or nasal flaring. Skin: Warm, dry with normal turgor. Normal color. MS/ Extremity: Pulses equal, no cyanosis. Neurovascular intact. Full, normal range of motion. Neuro: Awake and alert, GCS 15, oriented to person, place, time, and situation. Moves all extremities. Normal gait. Psych: Awake, alert, with orientation to person, place and time. Behavior, mood, and affect are within normal limits. Vital Signs: 20:30 BP 139 / 76; Pulse 66; Resp 18; Temp 98.3(TE); Pulse Ox 100% on R/A; Weight 58.97 kg; ld1 Height 5 ft. 4 in. (162.56 cm); Pain 0/10; 22:08 BP 135 / 83; Resp 18; Pulse Ox 100% on R/A; kd3 20:30 Body Mass Index 22.31 (58.97 kg, 162.56 cm) ld1 Jackson Coma Score: 22:08 Eye Response: spontaneous(4). Verbal Response: oriented(5). Motor Response: obeys kb commands(6). Total: 15. MDM: 20:28 Patient medically screened. kb 22:08 Data reviewed: vital signs, nurses notes. Data interpreted: Pulse oximetry: on room air kb is 100 %. Interpretation: normal. Counseling: I had a detailed discussion with the patient and/or guardian regarding: the historical points, exam findings, and any diagnostic results supporting the discharge/admit diagnosis, the need for outpatient follow up, a family practitioner, to return to the emergency department if symptoms worsen or persist or if there are any questions or concerns that arise at home. Response to treatment: the patient's symptoms have resolved after treatment. 08/07 20:28 Order name: IV Start; Complete Time: 22:00 kb Administered Medications: 21:57 Drug: NS 0.9% 1000 ml Route: IV; Rate: 1000 ml; Site: left hand; kd3 22:33 Follow up: IV Status: Completed infusion; IV Intake: 900ml bb 21:58 Drug: Ketorolac 30 mg Route: IVP; Site: left hand; kd3 22:10 Follow up: Response: No adverse reaction kd3 22:28 Follow up: Response: No adverse reaction; Pain is decreased bb 21:59 Drug: Reglan (metoCLOPramide) 10 mg Route: IVP; Site: left hand; kd3 22:10 Follow up: Response: No adverse reaction kd3 22:28 Follow up: Response: No adverse reaction; Pain is decreased bb 21:59 Drug: Benadryl (diphenhydrAMINE) 12.5 mg Route: IVP; Site: left hand; kd3 22:10 Follow up: Response: No adverse reaction kd3 22:28 Follow up: Response: No adverse reaction; Pain is decreased bb Disposition: 23:24 Co-signature as Attending Physician, Wero Rodriguez MD. [email or web address] Disposition Summary: 08/07/21 22:08 Discharge Ordered Location: Home kb Condition: Stable kb Diagnosis - Headache kb Followup: kb - With: Emergency Department - When: As needed - Reason: Worsening of condition Followup: kb - With: Private Physician - When: 2 - 3 days - Reason: Recheck today's complaints, Continuance of care, Re-evaluation by your physician Discharge Instructions: - Discharge Summary Sheet kb - Migraine Headache, [id number] kb Forms: - Medication Reconciliation Form kb - Thank You Letter kb - Antibiotic Education kb - Prescription Opioid Use kb Signatures: Miguelina Engle FNP-C FNP-Wero Sofia MD MD [email or web address] Monica Muhammad RN RN ld1 Maryjo Jim RN RN kd3 Tiffanie Nicholas RN bb Corrections: (The following items were deleted from the chart) 20:32 20:31 PSHx: None; ld1 ld1 20:32 20:31 PSHx: Appendectomy; ld1 ld1
[2021-08-07 22:46] VITALS: TEMP 98.3; O2SAT 100
[2021-08-07 22:48] VITALS: BP 135/83
== END 2021-08-07 22:35 | disposition home or self-care (01) ==
LOC: ER 20:16
DX: R51.9 Headache, unspecified (principal)
CPT/HCPCS: 96361; 96374; 96375; 99283; J1200; J2765; J7030

== ENCOUNTER 2022-06-10 14:54 | Emergency (ER) | payer OTHER, SELFPAY ==
--- OUTSIDE RECORDS SUMMARY | 2022-06-10 14:56 | XMS REPORT | Continuity of Care Document ---
:1980 Author Organization [facility] t Address [address] [place] [address] Care Team Providers Name Role Phone Raúl Alvarado Primary Care Physician [phone] Raúl Alvarado Attending Clinician RAÚL GONZALEZ Attending Clinician Unavailable Visit, Ang-Rmchp Nurse Attending Clinician Unavailable DOUGLAS SHAVER Attending Clinician Unavailable Pgy3 Attending Clinician Unavailable Douglas Shaver MD Attending Clinician Payers Payer Name Policy Type Policy Number Effective Date Expiration Date S ource Problems Condition Condition Condition Status Onset Resolution Last Treating Co mments Source Name Details Category Date Date Treatment Clinician Date Cervical Cervical Disease Active Overview: Un zeyad Papanicola Papanicola 8-16 Formattin ity of ou smear ou smear 00:00: g of this John as negative negative 00 note Medica l within within might be Branch last 12 last 12 different months months from the original. 04/2020 NIL pap neg HPV See scanned chart Well woman Well woman Disease Active Overview : Univers exam exam 9-12 Formattin ity of 00:00: g of this [place] 00 note Medical might be Branch different from the original. No pap records received Excessive Excessive Disease Active Uni vers or or 2-19 ity of frequent frequent 00:00: [place] menstruati menstruati 00 Me dical on on Branch Other Other Disease Active Overview: Univer s general general 30 Formattin ity o f counseling counseling 00:00: g of this [place] and advice and advice 00 note Me dical for for might be Branch contracept contracept different radha radha from the management management original. ICD10 Diagnosis Term Prefitter Utility Allergies, Adverse Reactions, Alerts Allergy Allergy Status Severity Reaction(s) Onset Inactive Treating Comm ents Source Name Type Date Date Clinician NO KNOWN Drug Active Univers ALLERGIE Class ity of S [facility] Social History Social Habit Start Date Stop Date Quantity Comments Source Exposure to 2022-05-12 2022-05-22 Not sure [facility] SARS-CoV-2 00:00:00 09:02:00 [facility] (event) [place] Alcohol intake 2022-05-22 2022-05-22 0 /d [facility] 00:00:00 00:00:00 [facility] Tobacco use and 2022-04-20 2022-04-20 Smokeless tobacco Un iversity of exposure 00:00:00 00:00:00 non-user [facility] Sex Ass[birth year] At [birth year] Universit y of 00:00:00 00:00:00 [facility] Smoking Status Start Date Stop Date Source Never smoked tobacco [facility] Medications Ordered Filled Start Stop Current Ordering Indication Dosage Frequency Signature Comments Components Source Medication Medication Date Date Medication? Clinician (SIG) Name Name ibuprofen 2021- No [id number] 800mg U nivers (IBU) 05-01 ity of tablet 800 21:00: 20:36 [place] mg 00 :00 [facility] ibuprofen 2021- No [id number] 800mg 800 mg, Univers (IBU) 05-01 Oral, ity of tablet 800 21:00: 20:36 ONCE, 1 John as mg 00 :00 dose, On Medical Mon Branch 05/01/22 at 1600, Routine levonorgest 2021- No [id number] 1{devic Univers reL 05-01 e} ity of (LILETTA) 20:30: 20:36 [place] IUD 1 00 :00 [employer] Branch levonorgest 2021- No [id number] 1{devic 1 Device, Univers reL 05-01 e} Intrauteri ity of (LILETTA) 20:30: 20:36 [place] 1 [place] :00 1 dose, On [employer] [facility] Branch 05/01/22 at 1530, Routine ferrous Yes [id number] 325mg Take 325 Univers sulfate 325 8-11 mg by ity of mg (65 mg 09:16: mouth [place] iron) 13 daily. Medical tablet Branch CYANOCOBALA Yes Take by Uni vers MIN, 8-11 mouth. ity of VITAMIN 09:16: [place] B-12, 13 Medical (VITAMIN Branch B-12 ORAL) ferrous 0 Yes [id number] 325mg Take 325 Univers sulfate 325 8-11 mg by ity of mg (65 mg 09:16: mouth [place] iron) 13 daily. Medical tablet Branch CYANOCOBALA Yes Take by Uni vers MIN, 8-11 mouth. ity of VITAMIN 09:16: [place] B-12, 13 Medical (VITAMIN Branch B-12 ORAL) ferrous Yes [id number] 325mg Take 325 Univers sulfate 325 8-11 mg by ity of mg (65 mg 09:16: mouth [place] iron) 13 daily. Medical tablet Branch CYANOCOBALA Yes Take by Uni vers MIN, 8-11 mouth. ity of VITAMIN 09:16: [place] B-12, 13 Medical (VITAMIN Branch B-12 ORAL) Immunizations Ordered Filled Immunization Date Status Comments [facility] e Immunization Name Name [facility] 2022-05-22 Completed University of 00:00:00 [facility] [place] [facility] 2022-05-22 Completed University of 00:00:00 [facility] [place] [facility] 2022-04-20 Completed University of 00:00:00 [facility] [place] [facility] 2022-04-20 Completed University of 00:00:00 [facility] [place] [facility] 2022-04-20 Completed University of 00:00:00 [facility] Td 2016-08-06 Completed University of 00:00:00 [facility] Td 2016-08-06 Completed University of 00:00:00 [facility] Td 2016-08-06 Completed University of 00:00:00 [facility] Td 2009-09-10 Completed University of 00:00:00 [facility] Td 2009-09-10 Completed University of 00:00:00 [facility] Td 2009-09-10 Completed University of 00:00:00 [facility] Vital Signs Vital Name Observation Time Observation Value Comments Source Systolic blood 2022-05-22 14:03:00 119 mm[Hg] Univer sity of pressure [facility] Diastolic blood 2022-05-22 14:03:00 68 mm[Hg] Unive rsity of pressure [facility] Heart rate 2022-05-22 14:03:00 63 /min Universi ty of [facility] Body temperature 2022-05-22 14:03:00 36.28 [facility] ersity [facility] Respiratory rate 2022-05-22 14:03:00 18 /min Univ ersity of [facility] Body height 2022-05-22 14:03:00 162.6 cm Universi ty of [facility] Body weight 2022-05-22 14:03:00 64.774 kg Universi ty of [facility] BMI 2022-05-22 14:03:00 24.51 kg/m2 Universi ty of [facility] Systolic blood 2022-05-01 18:01:00 119 mm[Hg] Univer sity of pressure [facility] Diastolic blood 2022-05-01 18:01:00 64 mm[Hg] Unive rsity of pressure [facility] Heart rate 2022-05-01 18:01:00 65 /min Universi ty of [facility] Body temperature 2022-05-01 18:01:00 35.44 Michelle [facility] ersity of [facility] Body height 2022-05-01 18:01:00 162.6 cm Universi ty of [facility] Body weight 2022-05-01 18:01:00 62.914 kg Universi ty of [facility] BMI 2022-05-01 18:01:00 23.81 kg/m2 Universi ty of [facility] Procedures Procedure Date / Time Performed Performing Clinician Sourc e GARDASIL 9 (HPV 9V) 2022-05-22 13:54:09 Raúl Gonzalez [facility] VACCINE [facility] PAP SMEAR-LIQUID 2022-05-01 20:15:00 Jennifer Gutierres [facility] Medical Branch Encounters Start End Encounter Admission Attending Care Care Encounter Source Date/Time Date/Time Type Type Clinicians Facility Department ID 2022-10-23 2022-10-23 Outpatient R [facility] [id number] Univers 09:00:00 09:00:00 [id number] ity [facility] 2022-10-23 2022-10-23 Outpatient R [facility] [id number] Univers 09:00:00 09:00:00 ity [facility] 2022-05-23 2022-05-23 Telephone Lisa [facility] [id number] Univers 00:00:00 00:00:00 Raúl Pierce MARKETING OFFICER [id number] ity of REGIONAL [id number] John as MATERNAL [id number] [facility] ical & CHILD [address] [place] [address] 2022-05-22 2022-05-22 [facility] [id number] Univers 08:30:00 09:05:30 RAÚL potts o f [facility] 2022-05-22 2022-05-22 Nurse Visit, [facility] Nurse [facility] [id number] Univers 08:30:00 09:05:30 Visit Raúl Gonzalez MARKETING OFFICER [id number] ity of [facility] [id number] John as MATERNAL [id number] [facility] & [address] 2022-05-22 2022-05-22 Outpatient R [facility] [id number] Univers 08:30:00 08:30:00 [id number] ity [facility] 2022-05-01 2022-05-01 [facility] [id number] Univers 13:30:00 15:10:21 DOUGLAS ity [facility] 2022-05-01 2022-05-01 Office Pgy3 UNIVERSIT [id number] Univers 13:30:00 15:10:21 Visit Douglas Shaver [facility] [id number] ity of [facility] [id number] [place] [id number] [address] Results This patient has no known results.
[2022-06-10] MEDS ORDERED: NA CHLORIDE 0.9% 1,000 ML ONE (15:24)
[2022-06-10] MEDS ORDERED: METOCLOPRAMIDE 10 MG/2mL INJ ONE (15:24)
[2022-06-10 15:47] LABS: Urine Blood 3+ (Negative); Urine Glucose Negative (Negative); Urine Protein Negative (Negative)
[2022-06-10 16:11] LABS: Absolute Lymphocytes (CBC) 1.2 K/uL (0.7-4.9); Hematocrit 23.3 % (36.0-45.0); Lymphocytes % 28.6 % (15.3-44.8); MCV 66.1 fL (80-100); MPV 9.3 fL (7.6-11.3); RBC Red Blood Cell Count 3.53 M/uL (3.86-4.86)
[2022-06-10 16:18] LABS: Potassium 3.8 mmol/L (3.5-5.1)
--- NOTE | 2022-06-10 17:17 | EDPHYS ---
Physician Documentation [facility] Name: Tomasa Dahl Age: 41 yrs Sex: Female : 1980 Arrival Date: 06/10/2022 Time: 14:56 Bed 14 Private MD: ED Physician Serena Corral HPI: 06/10 15:12 This 41 yrs old Female presents to ER via Ambulatory with complaints of Vaginal jmm Bleeding, Headache. 15:12 The patient presents with vaginal bleeding that is. Onset: The symptoms/episode jmm began/occurred gradually. Modifying factors: The symptoms are alleviated by nothing, the symptoms are aggravated by nothing. Associated signs and symptoms: Pertinent positives:. This is a 41 year old female with a history of anemia that presents to the ED with complaints of heavy vaginal bleeding since insertion of an IUD. Also complains of a migraine which is consistent with previous migraines. Denies fever, vomiting. . 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 - Social history:: Smoking status: Patient denies any tobacco usage or history of. ROS: 15:12 Constitutional: Negative for fever, chills, and weight loss, Cardiovascular: Negative jmm for chest pain, palpitations, and edema, Respiratory: Negative for shortness of breath, cough, wheezing, and pleuritic chest pain. 15:12 : Positive for vaginal bleeding. 15:12 Neuro: Positive for headache. 15:12 All other systems are negative. Exam: 15:12 Constitutional: This is a well developed, well nourished patient who is awake, alert, jmm and in no acute distress. Head/Face: atraumatic. Eyes: EOMI, no conjunctival erythema appreciated ENT: Moist Mucus Membranes Neck: Trachea midline, Supple Chest/axilla: Normal chest wall appearance and motion. Cardiovascular: Regular rate and rhythm. No edema appreciated Respiratory: Normal respirations, no respiratory distress appreciated Abdomen/GI: Non distended Back: Normal ROM Skin: General appearance color normal MS/ Extremity: Moves all extremities, no obvious deformities appreciated, no edema noted to the lower extremities Neuro: Awake and alert Psych: Behavior is normal, Mood is normal, Patient is cooperative and pleasant Vital Signs: 14:59 BP 124 / 69; Pulse 61; Resp 16; Temp 98.5(TE); Pulse Ox 100% on R/A; Weight 63.5 kg bm7 (R); Height 5 ft. 4 in. (162.56 cm); Pain 7/10; 16:30 BP 119 / 72; Pulse 64; Resp 16; Pulse Ox 100% on R/A; em6 17:30 BP 122 / 78; Pulse 68; Resp 16; Pulse Ox 100% on R/A; em6 14:59 Body Mass Index 24.03 (63.50 kg, 162.56 cm) bm7 MDM: 15:17 Patient medically screened. [facility] 17:13 Data reviewed: vital signs, nurses notes. Counseling: I had a detailed discussion with gracie the patient and/or guardian regarding: the historical points, exam findings, and any diagnostic results supporting the discharge/admit diagnosis, the need for outpatient follow up, to return to the emergency department if symptoms worsen or persist or if there are any questions or concerns that arise at home. ED course: Patient's migraine has resolved. HGB is above 7. Advised to follow up with obgyn for further evaluation. Patient is otherwise given strict return precautions. Patient understood and agrees with the plan of care. . 06/10 15:12 Order name: CBC with Diff [facility] 06/10 15:12 Order name: BMP [facility] 06/10 15:12 Order name: Type And Screen [facility] 06/10 15:47 Order name: Urine Dipstick-Ancillary; Complete Time: 15:50 [facility] 06/10 16:07 Order name: Urine --Ancillary (enter results) 06/10 16:14 Order name: CBC with Automated Diff; Complete Time: 16:25 [facility] 06/10 15:12 Order name: Urine Dipstick-Ancillary (obtain specimen); Complete Time: 15:47 [facility] 06/10 15:12 Order name: Urine Test (obtain specimen); Complete Time: 15:47 [facility] 06/10 15:12 Order name: Saline Lock; Complete Time: 15:53 [facility] 06/10 16:18 Order name: Basic Metabolic Panel; Complete Time: 16:25 [facility] 06/10 17:22 Order name: Type and Screen; Complete Time: 17:36 [facility] 06/10 17:25 Order name: Urine --Ancillary; Complete Time: 17:36 EDMS Administered Medications: 15:50 Drug: NS 0.9% 1000 ml Route: IV; Rate: 1 bolus; Site: left wrist; em6 17:00 Follow up: Response: No adverse reaction; IV Status: Completed infusion; IV Intake: em6 1000ml 15:50 Drug: Reglan (metoCLOPramide) 20 mg Route: IVP; Site: left wrist; em6 16:30 Follow up: Response: No adverse reaction em6 Disposition Summary: 06/10/22 17:16 Discharge Ordered Location: Home [facility] Condition: Stable jm Diagnosis - Abnormal uterine and vaginal bleeding, unspecified jmm - Anemia, unspecified jmm - Migraine without aura, not intractable jm Followup: jm - With: Private Physician - When: 2 - 3 days - Reason: Recheck today's complaints, Continuance of care, Re-evaluation by your physician Discharge Instructions: - Discharge Summary Sheet jm - Abnormal Uterine Bleeding jm - Anemia jm - Migraine Headache [facility] Forms: - Medication Reconciliation Form [facility] - Thank You Letter [facility] - Antibiotic Education [facility] - Prescription Opioid Use [facility] Prescriptions: - Ferrous Sulfate 325 mg (65 mg Iron) Oral Tablet - take 1 tablet by ORAL route every 8 hours; 90 tablet; Refills: 0, Product [facility] Selection Permitted - ondansetron 4 mg Oral tablet,disintegrating - take 1 tablet by ORAL route every 4-6 hours As needed; 20 tablet; Refills: 0, [facility] Product Selection Permitted Signatures: Dispatcher [employer] EDMS Deepak Scott PA PA jmm McCarthy, Brittany RN RN bm7 Myrtel Marques RN RN em6 Corrections: (The following items were deleted from the chart) 15:01 15:01 Home Meds: anemia; 7 bm7 15:01 15:01 PMHx: angina pectoris; 7 bm7
--- NOTE | 2022-06-10 17:17 | ER ---
Nurse's Notes [facility] Name: Tomasa Dahl Age: 41 yrs Sex: Female : 1980 Arrival Date: 06/10/2022 Time: 14:56 Bed 14 Private MD: Diagnosis: Abnormal uterine and vaginal bleeding, unspecified;Anemia, unspecified;Migraine without aura, not intractable Presentation: 06/10 14:59 Chief complaint: Patient states: I had an IUD put in last month and ever since then I bm7 have been cramping and bleeding. I think I have lost so much blood that it is making me weak and have migraines. Coronavirus screen: At this time, the client does not indicate any symptoms associated with coronavirus-19. Ebola Screen: No symptoms or risks identified at this time. Initial Sepsis Screen: Does the patient meet any 2 criteria? No. Patient's initial sepsis screen is negative. Does the patient have a suspected source of infection? No. Patient's initial sepsis screen is negative. Risk Assessment: Do you want to hurt yourself or someone else? Patient reports no desire to harm self or others. Onset of symptoms is unknown. 14:59 Method Of Arrival: Ambulatory bm7 14:59 Acuity: AMY 3 bm7 Triage Assessment: 15:01 General: Appears in no apparent distress. uncomfortable, Behavior is calm, cooperative, bm7 appropriate for age. Pain: Complains of pain in pelvis. EENT: No deficits noted. No signs and/or symptoms were reported regarding the EENT system. Neuro: No deficits noted. Cardiovascular: No deficits noted. Respiratory: No deficits noted. GI: No deficits noted. No signs and/or symptoms were reported involving the gastrointestinal system. : Reports vaginal bleeding that is bright red. : Reports cramping. Derm: No deficits noted. No signs and/or symptoms reported regarding the dermatologic system. Musculoskeletal: No deficits noted. No signs and/or symptoms reported regarding the musculoskeletal system. 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 - Social history:: Smoking status: Patient denies any tobacco usage or history of. Screenin:20 Abuse screen: Denies threats or abuse. Nutritional screening: No deficits noted. em6 Tuberculosis screening: No symptoms or risk factors identified. 15:25 Fall Risk Total Lubin Fall Scale indicates No Risk (0-24 pts). em6 Assessment: 15:18 General: Appears in no apparent distress. Behavior is cooperative. Pain: Denies pain. em6 Neuro: Vargas Agitation-Sedation Scale (RASS): 0 - Alert and Calm Level of Consciousness is awake, alert, obeys commands, Reports headache frontal area. Cardiovascular: Heart tones present Patient's skin is warm and dry. Respiratory: Airway is patent Respiratory effort is even, unlabored, Respiratory pattern is regular, symmetrical, Breath sounds are clear bilaterally. GI: No signs and/or symptoms were reported involving the gastrointestinal system. : Reports vaginal bleeding that is spotty, spotting since may 01, 2022 on and off. EENT: No signs and/or symptoms were reported regarding the EENT system. Derm: No signs and/or symptoms reported regarding the dermatologic system. Musculoskeletal: Circulation, motion, and sensation intact. Range of motion: intact in all extremities. 16:20 Reassessment: No changes from previously documented assessment. Patient and/or family em6 updated on plan of care and expected duration. Pain level reassessed. Patient is alert, oriented x 3, equal unlabored respirations, skin warm/dry/pink. 17:20 Reassessment: No changes from previously documented assessment. Patient and/or family em6 updated on plan of care and expected duration. Pain level reassessed. Patient is alert, oriented x 3, equal unlabored respirations, skin warm/dry/pink. Vital Signs: 14:59 BP 124 / 69; Pulse 61; Resp 16; Temp 98.5(TE); Pulse Ox 100% on R/A; Weight 63.5 kg bm7 (R); Height 5 ft. 4 in. (162.56 cm); Pain 7/10; 16:30 BP 119 / 72; Pulse 64; Resp 16; Pulse Ox 100% on R/A; em6 17:30 BP 122 / 78; Pulse 68; Resp 16; Pulse Ox 100% on R/A; em6 14:59 Body Mass Index 24.03 (63.50 kg, 162.56 cm) bm7 ED Course: 14:56 Patient arrived in ED. am2 15:01 Triage completed. bm7 15:01 Arm band placed on right wrist. bm7 15:04 Deepak Scott PA is PHCP. [facility] 15:04 Serena Corral MD is Attending Physician. [facility] 15:10 Myrtle Marques, NINO is Primary Nurse. em6 15:20 Bed in low position. Call light in reach. Side rails up X 1. Pulse ox on. NIBP on. Warm em6 blanket given. 15:53 Inserted saline lock: 22 gauge in left wrist, using aseptic technique. Blood collected. jd3 15:54 BMP Sent. em6 15:54 Type And Screen Sent. em6 15:54 CBC with Diff Sent. em6 17:50 No provider procedures requiring assistance completed. IV discontinued, intact, em6 bleeding controlled, No redness/swelling at site. Pressure dressing applied. 17:57 Urine --Ancillary (enter results) Sent. em6 Administered Medications: 15:50 Drug: NS 0.9% 1000 ml Route: IV; Rate: 1 bolus; Site: left wrist; em6 17:00 Follow up: Response: No adverse reaction; IV Status: Completed infusion; IV Intake: em6 1000ml 15:50 Drug: Reglan (metoCLOPramide) 20 mg Route: IVP; Site: left wrist; em6 16:30 Follow up: Response: No adverse reaction em6 Medication: 17:50 VIS not applicable for this client. em6 Intake: 17:00 IV: 1000ml; Total: 1000ml. em6 Outcome: 17:16 Discharge ordered by . [facility] 17:50 Discharged to home ambulatory, with significant other. em6 17:50 Condition: stable 17:50 Discharge instructions given to patient, significant other, Instructed on discharge instructions, follow up and referral plans. medication usage, Demonstrated understanding of instructions, follow-up care, medications, Prescriptions given X 2. 18:00 Patient left the ED. em6 Signatures: Deepak Scott PA PA Zehra Mcmillan am2 Everton Rolle RN RN jd3 Linda Price RN RN bm7 Myrtle Marques RN RN em6 Corrections: (The following items were deleted from the chart) 15: 15:01 Home Meds: anemia; 7 7 15: 15:01 PMHx: angina pectoris; bm7 bm7
[2022-06-10 18:19] VITALS: TEMP 98.5; O2SAT 100
[2022-06-10 18:35] VITALS: BP 122/78
== END 2022-06-10 18:00 | disposition home or self-care (01) ==
LOC: ER 14:54
DX: N93.9 Abnormal uterine and vaginal bleeding, unspecified (principal); D64.9 Anemia, unspecified; G43.009 Migraine without aura, not intractable, without status migrainosus
CPT/HCPCS: 96361; 85025; 80048; 36415; 86900; 86850; 81025; 86901; 81003; 96374; 99284; J2765; J7030

== ENCOUNTER 2023-05-01 12:42 | Emergency (ER) | payer OTHER ==
--- OUTSIDE RECORDS SUMMARY | 2023-05-01 12:46 | XMS REPORT | Continuity of Care Document ---
:1980 Author Organization [facility] t Address [address] [place] [address] Care Team Providers Name Role Phone BERTIN ZAVALA Primary Care Physician Unavailable TIFFANIE ABREU Attending Clinician Unavailable Tiffanie Abreu CNM Attending Clinician Akua Alvarado Attending Clinician [phone] KAUA FRYE Attending Clinician Unavailable Doctor Unassigned, [place] Attending Clinician Unavailable BERTIN ZAVALA Attending Clinician Unavailable Sally PALLIATIVE CARE SPECIALISTBertin Christensen Attending Clinician Visit, EyadRmchp Nurse Attending Clinician Unavailable Lab, Kavon - Db Attending Clinician Unavailable Qiana ALANIZ Attending Clinician Unavailable Qiana Cruz Attending Clinician DOUGLAS SHAVER Attending Clinician Unavailable [employer] Attending Clinician Unavailable Douglas Shaver MD Attending Clinician RASHEED ROMERO Attending Clinician Unavailable BERTIN ZAVALA Admitting Clinician Unavailable Payers Payer Name Policy Type Policy Number Effective Date Expiration Date S ource Problems Condition Condition Condition Status Onset Resolution Last Treating Co mments Source Name Details Category Date Date Treatment Clinician Date Presence Presence Disease Active Unive rs of of 8-11 ity of [place] Medical contracept contracept Br anch radha device radha device Anemia, Anemia, Disease Active Univers unspecifie unspecifie 8-11 it y of d d 00:00: [place] 00 Medical Branch Need for Need for Disease Active Unive rs hepatitis hepatitis 2-03 ity of C C 00:00: [place] screening screening 00 Medi mariama test test Branch Acute pain Acute pain Disease Active U nivers of right of right 106 ity of knee knee 00:00: [place] 00 Medical Branch Metatarsal Metatarsal Disease Active U nivers jamir of jamir of 06 ity of left foot left foot [place] Left foot Left foot Disease Active Uni vers pain pain 106 ity of 00:00: [place] 00 Medical Branch Iron Iron Disease Active Univers deficiency deficiency 1-06 it y of anemia due anemia due [place] to chronic to chronic 00 Me dical blood loss blood loss Br anch Need for Need for Disease Active Unive rs vaccinatio vaccinatio 1-06 it y of n n 00:00: Medical Branch Cervical Cervical Disease Active Overview: Un zeyad Papanicola Papanicola 8-16 Formattin ity of ou smear ou smear 00:00: g of this [place] as negative negative 00 note Medica l within within might be Branch last 12 last 12 different months months from the original. 04/2020 NIL pap neg HPV See scanned chart Well woman Well woman Disease Active Overview : Univers exam exam 12 Formattin ity of 00:00: g of this [place] 00 note Medical might be Branch different from the original. No pap records received Excessive Excessive Disease Active Uni vers or or 2-19 ity of frequent frequent 00:00: [place] menstruati menstruati 00 Me dical on on Branch Other Other Disease Active Overview: Univer s general general 06-09 Formattin ity o f counseling counseling 00:00: g of this [place] and advice and advice 00 note Me dical for for might be Branch contracept contracept different radha radha from the management management original. ICD10 Diagnosis Term Title Search Manager Utility Allergies, Adverse Reactions, Alerts Allergy Allergy Status Severity Reaction(s) Onset Inactive Treating Comm ents Source Name Type Date Date Clinician NO KNOWN Drug Active Univers ALLERGIE Class ity of S [facility] [place] Social History Social Habit Start Date Stop Date Quantity Comments Source [facility] 2023-04-22 2023-04-22 0 /d University 00:00:00 00:00:00 [facility] [place] History of Social 2023-04-20 2023-04-20 Univers ity of function 00:00:00 00:00:00 [facility] [place] Exposure to 2022-10-14 2022-10-24 Not sure [facility] SARS-CoV-2 (event) 00:00:00 09:56:00 [facility] [place] Tobacco use and 2022-04-20 2022-04-20 Smokeless Universit y of exposure 00:00:00 00:00:00 tobacco non-user [facility] Sex Assigned At [birth year] Universit y of 00:00:00 00:00:00 [facility] [place] Smoking Status Start Date Stop Date Source Never smoked tobacco [facility] Medications Ordered Filled Start Stop Current Ordering Indication Dosage Frequency Signature Comments Components Source Medication Medication Date Date Medication? Clinician (SIG) Name Name ferrous 2022- No [id number] 325mg Take 325 Univers sulfate 325 8-13 08-13 mg by ity of mg (65 mg 12:00: 00:00 mouth [place] iron) 42 :00 daily. Medical tablet Branch ferrous 2022- No [id number] 325mg Take 325 Univers sulfate 325 8-13 08-13 mg by ity of mg (65 mg 12:00: 00:00 mouth [place] iron) 42 :00 daily. Medical tablet Branch nystatin Yes [id number] Apply to U nivers 100,000 8-11 area(s) 2 ity of unit/gram 00:00: (two) [place] cream 00 times Medical daily. Branch nystatin Yes [id number] Apply to U nivers 100,000 8-11 area(s) 2 ity of unit/gram 00:00: (two) [place] cream 00 times Medical daily. Branch nystatin Yes [id number] Apply to U nivers 100,000 8-11 area(s) 2 ity of unit/gram 00:00: (two) [place] cream 00 times Medical daily. Branch nystatin Yes [id number] Apply to [facility] 100,000 8-11 area(s) 2 ity of unit/gram 00:00: (two) [place] cream 00 times Medical daily. Branch ibuprofen 2022- No [id number] 600mg Take 1 Univers 600 mg 09-15 9107 tablet by ity of tablet 00:00: 05:59 mouth [place] 00 :00 every 6 Medical (six) Branch hours as needed for Temp > 38.5 C for up to 14 days. ibuprofen 2022-2022- No [id number] 600mg Take 1 Univers 600 mg 09-15 9107 tablet by ity of tablet 00:00: 05:59 mouth [place] 00 :00 every 6 Medical (six) Branch hours as needed for Temp > 38.5 C for up to 14 days. ibuprofen 2022-2022- No [id number] 600mg Take 1 Univers 600 mg 09-15 9107 tablet by ity of tablet 00:00: 05:59 mouth [place] 00 :00 every 6 Medical (six) Branch hours as needed for Temp > 38.5 C for up to 14 days. ibuprofen 2022-2022- No [id number] 600mg Take 1 Univers 600 mg 09-15 9107 tablet by ity of tablet 00:00: 05:59 mouth [place] 00 :00 every 6 Medical (six) Branch hours as needed for Temp > 38.5 C for up to 14 days. ibuprofen 2022-2022- No [id number] 600mg Take 1 Univers 600 mg 09-15 9107 tablet by ity of tablet 00:00: 05:59 mouth [place] 00 :00 every 6 Medical (six) Branch hours as needed for Temp > 38.5 C for up to 14 days. benzonatate 2021-09 Yes [id number] 200mg Take 1 Univers 200 mg 2-22 capsule by ity of capsule 00:00: mouth 3 [place] 00 (three) Medical times Branch daily as needed for Cough for up to 20 doses. benzonatate 2021-09 Yes [id number] 200mg Take 1 Univers 200 mg 2-22 capsule by ity of capsule 00:00: mouth (three) Medical times Branch daily as needed for Cough for up to 20 doses. benzonatate 2021-09 Yes [id number] 200mg Take 1 Univers 200 mg 2-22 capsule by ity of capsule 00:00: mouth (three) Medical times Branch daily as needed for Cough for up to 20 doses. benzonatate 2021-09 Yes [id number] 200mg Take 1 Univers 200 mg 2-22 capsule by ity of capsule 00:00: mouth (three) Medical times Branch daily as needed for Cough for up to 20 doses. benzonatate 2021-09 Yes [id number] 200mg Take 1 Univers 200 mg 2-22 capsule by ity of capsule 00:00: mouth (three) Medical times Branch daily as needed for Cough for up to 20 doses. benzonatate 2021-09 Yes [id number] 200mg Take 1 Univers 200 mg 2-22 capsule by ity of capsule 00:00: mouth () Medical times Branch daily as needed for Cough for up to 20 doses. benzonatate 2021-09 Yes [id number] 200mg Take 1 Univers 200 mg 2-22 capsule by ity of capsule 00:00: mouth (three) Medical times Branch daily as needed for Cough for up to 20 doses. benzonatate 2021-09 Yes [id number] 200mg Take 1 Univers 200 mg 2-22 capsule by ity of capsule 00:00: mouth (three) Medical times Branch daily as needed for Cough for up to 20 doses. benzonatate 2021-09 Yes [id number] 200mg Take 1 Univers 200 mg 2-22 capsule by ity of capsule 00:00: mouth (three) Medical times Branch daily as needed for Cough for up to 20 doses. benzonatate 2021-09 Yes [id number] 200mg Take 1 Univers 200 mg 2-22 capsule by ity of capsule 00:00: mouth (three) Medical times Branch daily as needed for Cough for up to 20 doses. benzonatate 2021-09 Yes [id number] 200mg Take 1 Univers 200 mg 2-22 capsule by ity of capsule 00:00: mouth 3 [place] 00 (three) Medical times Branch daily as needed for Cough for up to 20 doses. benzonatate 2021-09 Yes [id number] 200mg Take 1 Univers 200 mg 2-22 capsule by ity of capsule 00:00: mouth 3 [place] 00 (three) Medical times Branch daily as needed for Cough for up to 20 doses. benzonatate 2021-09 Yes [id number] 200mg Take 1 Univers 200 mg 2-22 capsule by ity of capsule 00:00: mouth 3 [place] 00 (three) Medical times Branch daily as needed for Cough for up to 20 doses. benzonatate 2021-09- No [id number] 200mg Take 1 Univers 200 mg 2-22 08-11 capsule by ity of capsule 00:00: 00:00 mouth 3 [place] 00 :00 (three) Medical times Branch daily as needed for Cough for up to 20 doses. benzonatate 2021-09- No [id number] 200mg Take 1 Univers 200 mg 2-22 08-11 capsule by ity of capsule 00:00: 00:00 mouth 3 [place] 00 :00 (three) Medical times Branch daily as needed for Cough for up to 20 doses. ibuprofen 2021- No [id number] 800mg U nivers (IBU) 05-01 ity of tablet 800 21:00: 20:36 [place] mg 00 :00 Medical Branch ibuprofen 2021- No [id number] 800mg 800 mg, Univers (IBU) 05-01 Oral, ity of tablet 800 21:00: 20:36 ONCE, 1 [place] as mg 00 :00 dose, On Medical Mon Branch 05/01/22 at 1600, Routine levonorgest 2021- No [id number] 1{devic Univers reL 05-01 e} ity of (LILETTA) 20:30: 20:36 [place] IUD 1 00 :00 [place] Branch levonorgest 2021- No [id number] 1{devic 1 Device, Univers reL 05-01 e} Intrauteri ity of (LILETTA) 20:30: 20:36 [place], [place] I[place] 1 00 :00 1 dose, On [place] Mon Branch 05/01/22 at 1530, Routine ferrous 2022-0 Yes [id number] 325mg Take 325 Univers sulfate 325 8-11 mg by ity of mg (65 mg 09:16: mouth [place] iron) 13 daily. Medical tablet Branch CYANOCOBALA Yes Take by Uni vers MIN, 8-11 mouth. ity of VITAMIN 09:16: B Medical (VITAMIN Branch B-12 ORAL) ferrous 0 Yes [id number] 325mg Take 325 Univers sulfate 325 8-11 mg by ity of mg (65 mg 09:16: mouth [place] iron) 13 daily. Medical tablet Branch CYANOCOBALA Yes Take by Uni vers MIN, 8-11 mouth. ity of VITAMIN 09:16: B Medical (VITAMIN Branch B-12 ORAL) ferrous Yes [id number] 325mg Take 325 Univers sulfate 325 8-11 mg by ity of mg (65 mg 09:16: mouth [place] iron) 13 daily. Medical tablet Branch CYANOCOBALA Yes Take by Uni vers MIN, 8-11 mouth. ity of VITAMIN 09:16: B Medical (VITAMIN Branch B-12 ORAL) ferrous Yes [id number] 325mg Take 325 Univers sulfate 325 8-11 mg by ity of mg (65 mg 09:16: mouth [place] iron) 13 daily. Medical tablet Branch CYANOCOBALA Yes Take by Uni vers MIN, 8-11 mouth. ity of VITAMIN 09:16: Medical (VITAMIN Branch B-12 ORAL) ferrous 0 Yes [id number] 325mg Take 325 Univers sulfate 325 8-11 mg by ity of mg (65 mg 09:16: mouth [place] iron) 13 daily. Medical tablet Branch CYANOCOBALA Yes Take by Uni vers MIN, 8-11 mouth. ity of VITAMIN 09:16: B- Medical (VITAMIN Branch B-12 ORAL) ferrous 0 Yes [id number] 325mg Take 325 Univers sulfate 325 8-11 mg by ity of mg (65 mg 09:16: mouth [place] iron) 13 daily. Medical tablet Branch CYANOCOBALA Yes Take by Uni vers MIN, 8-11 mouth. ity of VITAMIN 09:16: B- Medical (VITAMIN Branch B-12 ORAL) ferrous 0 Yes [id number] 325mg Take 325 Univers sulfate 325 8-11 mg by ity of mg (65 mg 09:16: mouth [place] iron) 13 daily. Medical tablet Branch CYANOCOBALA 0 Yes Take by Uni vers MIN, 8-11 mouth. ity of VITAMIN 09:16: Medical (VITAMIN Branch B-12 ORAL) ferrous 0 Yes [id number] 325mg Take 325 Univers sulfate 325 8-11 mg by ity of mg (65 mg 09:16: mouth [place] iron) 13 daily. Medical tablet Branch CYANOCOBALA Yes Take by Uni vers MIN, 8-11 mouth. ity of VITAMIN 09:16: Medical (VITAMIN Branch B-12 ORAL) ferrous 0 Yes [id number] 325mg Take 325 Univers sulfate 325 8-11 mg by ity of mg (65 mg 09:16: mouth [place] iron) 13 daily. Medical tablet Branch CYANOCOBALA Yes Take by Uni vers MIN, 8-11 mouth. ity of VITAMIN 09:16: Medical (VITAMIN Branch B-12 ORAL) ferrous Yes [id number] 325mg Take 325 Univers sulfate 325 8-11 mg by ity of mg (65 mg 09:16: mouth [place] iron) 13 daily. Medical tablet Branch CYANOCOBALA Yes Take by Uni vers MIN, 8-11 mouth. ity of VITAMIN 09:16: Medical (VITAMIN Branch B-12 ORAL) ferrous 0 Yes [id number] 325mg Take 325 Univers sulfate 325 8-11 mg by ity of mg (65 mg 09:16: mouth [place] iron) 13 daily. Medical tablet Branch CYANOCOBALA 0 Yes Take by Uni vers MIN, 8-11 mouth. ity of VITAMIN 09:16: Medical (VITAMIN Branch B-12 ORAL) ferrous 0 Yes [id number] 325mg Take 325 Univers sulfate 325 8-11 mg by ity of mg (65 mg 09:16: mouth [place] iron) 13 daily. Medical tablet Branch CYANOCOBALA Yes Take by Uni vers MIN, 8-11 mouth. ity of VITAMIN 09:16: [place] B- Medical (VITAMIN Branch B-12 ORAL) ferrous 0 Yes [id number] 325mg Take 325 Univers sulfate 325 8-11 mg by ity of mg (65 mg 09:16: mouth [place] iron) 13 daily. Medical tablet Branch CYANOCOBALA 0 Yes Take by Uni vers MIN, 8-11 mouth. ity of VITAMIN 09:16: [place] B Medical (VITAMIN Branch B-12 ORAL) ferrous 2021-0 Yes [id number] 325mg Take 325 Univers sulfate 325 8-11 mg by ity of mg (65 mg 09:16: mouth [place] iron) 13 daily. Medical tablet Branch CYANOCOBALA 0 Yes Take by Uni vers MIN, 8-11 mouth. ity of VITAMIN 09:16: B Medical (VITAMIN Branch B-12 ORAL) ferrous 0 Yes [id number] 325mg Take 325 Univers sulfate 325 8-11 mg by ity of mg (65 mg 09:16: mouth [place] iron) 13 daily. Medical tablet Branch CYANOCOBALA 0 Yes Take by Uni vers MIN, 8-11 mouth. ity of VITAMIN 09:16: B Medical (VITAMIN Branch B-12 ORAL) ferrous 0 Yes [id number] 325mg Take 325 Univers sulfate 325 8-11 mg by ity of mg (65 mg 09:16: mouth [place] iron) 13 daily. Medical tablet Branch CYANOCOBALA 0 Yes Take by Uni vers MIN, 8-11 mouth. ity of VITAMIN 09:16: B- Medical (VITAMIN Branch B-12 ORAL) CYANOCOBALA 0 Yes Take by Uni vers MIN, 8-11 mouth. ity of VITAMIN 09:16: B-, Medical (VITAMIN Branch B-12 ORAL) CYANOCOBALA 0 Yes Take by Uni vers MIN, 8-11 mouth. ity of VITAMIN 09:16: B-, Medical (VITAMIN Branch B-12 ORAL) CYANOCOBALA 0 Yes Take by Uni vers MIN, 8-11 mouth. ity of VITAMIN 09:16: B-, Medical (VITAMIN Branch B-12 ORAL) CYANOCOBALA Yes Take by Uni vers MIN, 8-11 mouth. ity of VITAMIN 09:16: [place] B-12, 13 Medical (VITAMIN Branch B-12 ORAL) Immunizations Ordered Filled Immunization Date Status Comments [facility] e Immunization Name Name HPV9 2022-10-25 Completed University of 00:00: [place] [facility] Branch HPV9 2022-10-25 Completed University of 00:00: [facility] Branch HPV9 2022-10-25 Completed University of 00:00: [place] [facility] HPV9 2022-10-25 Completed University of 00:00: [facility] Branch HPV9 2022-10-25 Completed University of 00:00: [facility] Branch HPV9 2022-10-25 Completed University of 00:00: [place] [facility] HPV9 2022-10-25 Completed University of 00:00: [facility] Branch HPV9 2022-10-25 Completed University of 00:00:00 [facility] [place] Influenza Virus 2022-09-15 Completed Universit y of Vaccine Quad IM, 00:00:00 [place] Me dical Preserv and ABX Branch Free 6 MO-64 YRS Influenza Virus 2022-09-15 Completed Universit y of Vaccine [facility], 00:00:00 [place] Me dical Preserv and ABX Branch Free 6 MO-64 YRS Influenza Virus 2022-09-15 Completed Universit y of Vaccine [facility] IM, 00:00:00 [place] Me dical Preserv and ABX Branch Free 6 MO-64 YRS Influenza Virus 2022-09-15 Completed Universit y of Vaccine [facility] IM, 00:00:00 [place] Me dical Preserv and ABX Branch Free 6 MO-64 YRS Influenza Virus 2022-09-15 Completed Universit y of Vaccine [facility], 00:00:00 [place] Me dical Preserv and ABX Branch Free 6 MO-64 YRS Influenza Virus 2022-09-15 Completed Universit y of Vaccine [facility], 00:00:00 [place] Me dical Preserv and ABX Branch Free 6 MO-64 YRS Influenza Virus 2022-09-15 Completed Universit y of Vaccine [facility] IM, 00:00:00 [place] Me dical Preserv and ABX Branch Free 6 MO-64 YRS Influenza Virus 2022-09-15 Completed Universit y of Vaccine [facility] IM, 00:00:00 [place] Me dical Preserv and ABX Branch Free 6 MO-64 YRS Influenza Virus 2022-09-15 Completed Universit y of Vaccine [facility] IM, 00:00:00 [place] Me dical Preserv and ABX Branch Free 6 MO-64 YRS Influenza Virus 2022-09-15 Completed Universit y of Vaccine [facility] IM, 00:00:00 [place] Me dical Preserv and ABX Branch Free 6 MO-64 YRS Influenza Virus 2022-09-15 Completed Universit y of Vaccine [facility] IM, 00:00:00 [place] Me dical Preserv and ABX Branch Free 6 MO-64 YRS Influenza Virus 2022-09-15 Completed Universit y of Vaccine [facility] IM, 00:00:00 [place] Me dical Preserv and ABX Branch Free 6 MO-64 YRS Influenza Virus 2022-09-15 Completed Universit y of Vaccine [facility] IM, 00:00:00 [place] Me dical Preserv and ABX Branch Free 6 MO-64 YRS Influenza Virus 2022-09-15 Completed Universit y of Vaccine [facility] IM, 00:00:00 [place] Me dical Preserv and ABX Branch Free 6 MO-64 YRS Influenza Virus 2022-09-15 Completed Universit y of Vaccine Quad IM, 00:00:00 [place] Me dical Preserv and ABX Branch Free 6 MO-64 YRS HPV9 2022-05-22 Completed University of 00:00:00 [facility] [place] HPV9 2022-05-22 Completed University of 00:00:00 [facility] [place] HPV9 2022-05-22 Completed University of 00:00:00 [facility] [place] HPV9 2022-05-22 Completed University of 00:00:00 [facility] [place] HPV9 2022-05-22 Completed University of 00:00:00 [facility] [place] HPV9 2022-05-22 Completed University of 00:00:00 [facility] [place] HPV9 2022-05-22 Completed University of 00:00:00 [facility] [place] HPV9 2022-05-22 Completed University of 00:00:00 [facility] [place] HPV9 2022-05-22 Completed University of 00:00:00 [facility] [place] HPV9 2022-05-22 Completed University of 00:00:00 [facility] [place] HPV9 2022-05-22 Completed University of 00:00:00 [facility] [place] HPV9 2022-05-22 Completed University of 00:00:00 [place] [facility] HPV9 2022-05-22 Completed University of 00:00:00 [place] [facility] HPV9 2022-05-22 Completed University of 00:00:00 [place] [facility] HPV9 2022-05-22 Completed University of 00:00:00 [place] [facility] HPV9 2022-05-22 Completed University of 00:00:00 [place] [facility] HPV9 2022-05-22 Completed University of 00:00:00 [place] [facility] HPV9 2022-05-22 Completed University of 00:00:00 [place] [facility] HPV9 2022-05-22 Completed University of 00:00:00 [place] [facility] HPV9 2022-04-20 Completed University of 00:00:00 [place] [facility] HPV9 2022-04-20 Completed University of 00:00:00 [place] [facility] HPV9 2022-04-20 Completed University of 00:00:00 [place] [facility] HPV9 2022-04-20 Completed University of 00:00:00 [place] [facility] HPV9 2022-04-20 Completed University of 00:00:00 [place] [facility] HPV9 2022-04-20 Completed University of 00:00:00 [place] [facility] HPV9 2022-04-20 Completed University of 00:00:00 [place] [facility] HPV9 2022-04-20 Completed University of 00:00:00 [place] [facility] HPV9 2022-04-20 Completed University of 00:00:00 [place] [facility] HPV9 2022-04-20 Completed University of 00:00:00 [place] [facility] HPV9 2022-04-20 Completed University of 00:00:00 [place] [facility] HPV9 2022-04-20 Completed University of 00:00:00 [place] [facility] HPV9 2022-04-20 Completed University of 00:00:00 [place] [facility] HPV9 2022-04-20 Completed University of 00:00:00 [place] [facility] HPV9 2022-04-20 Completed University of 00:00:00 [place] [facility] HPV9 2022-04-20 Completed University of 00:00:00 [place] [facility] HPV9 2022-04-20 Completed University of 00:00:00 [place] [facility] HPV9 2022-04-20 Completed University of 00:00:00 [place] [facility] HPV9 2022-04-20 Completed University of 00:00:00 [place] [facility] HPV9 2022-04-20 Completed University of 00:00:00 [facility] Branch Td 2016-08-06 Completed University of 00:00:00 [place] [facility] Td 2016-08-06 Completed University of 00:00:00 [place] [facility] Td 2016-08-06 Completed University of 00:00:00 [place] [facility] TD, NOS 2016-08-06 Completed University of 00:00:00 [place] [facility] TD, NOS 2016-08-06 Completed University of 00:00:00 [place] [facility] TD, NOS 2016-08-06 Completed University of 00:00:00 [place] [facility] TD, NOS 2016-08-06 Completed University of 00:00:00 [place] [facility] TD, NOS 2016-08-06 Completed University of 00:00:00 [place] [facility] TD, NOS 2016-08-06 Completed University of 00:00:00 [place] [facility] TD, NOS 2016-08-06 Completed University of 00:00:00 [facility] Branch TD, NOS 2016-08-06 Completed University of 00:00:00 [place] [facility] TD, NOS 2016-08-06 Completed University of 00:00:00 [place] [facility] TD, NOS 2016-08-06 Completed University of 00:00:00 [facility] Branch TD, NOS 2016-08-06 Completed University of 00:00:00 [facility] Branch TD, NOS 2016-08-06 Completed University of 00:00:00 [facility] Branch TD, NOS 2016-08-06 Completed University of 00:00:00 [facility] Branch TD, NOS 2016-08-06 Completed University of 00:00:00 [facility] Branch TD, NOS 2016-08-06 Completed University of 00:00:00 [place] [facility] TD, NOS 2016-08-06 Completed University of 00:00:00 [place] [facility] TD, NOS 2016-08-06 Completed University of 00:00:00 [place] [facility] Td 2009-09-10 Completed University of 00:00:00 [place] [facility] Td 2009-09-10 Completed University of 00:00:00 [place] [facility] Td 2009-09-10 Completed University of 00:00:00 [place] [facility] TD, NOS 2009-09-10 Completed University of 00:00:00 [place] [facility] TD, NOS 2009-09-10 Completed University of 00:00:00 [place] [facility] TD, NOS 2009-09-10 Completed University of 00:00:00 [place] [facility] TD, NOS 2009-09-10 Completed University of 00:00:00 [place] [facility] TD, NOS 2009-09-10 Completed University of 00:00:00 [place] [facility] TD, NOS 2009-09-10 Completed University of 00:00:00 [place] [facility] TD, NOS 2009-09-10 Completed University of 00:00:00 [place] [facility] TD, NOS 2009-09-10 Completed University of 00:00:00 [place] [facility] TD, NOS 2009-09-10 Completed University of 00:00:00 [place] [facility] TD, NOS 2009-09-10 Completed University of 00:00:00 [place] [facility] TD, NOS 2009-09-10 Completed University of 00:00:00 [place] [facility] TD, NOS 2009-09-10 Completed University of 00:00:00 [place] [facility] TD, NOS 2009-09-10 Completed University of 00:00:00 [place] [facility] TD, NOS 2009-09-10 Completed University of 00:00:00 [place] [facility] TD, NOS 2009-09-10 Completed University of 00:00:00 [place] [facility] TD, NOS 2009-09-10 Completed University of 00:00:00 [place] [facility] TD, NOS 2009-09-10 Completed University of 00:00:00 [facility] Branch Vital Signs Vital Name Observation Time Observation Value Comments Source Systolic blood 2023-04-20 18:39:00 123 mm[Hg] Univer sity of pressure [facility] [place] Diastolic blood 2023-04-20 18:39:00 66 mm[Hg] Unive rsity of pressure [facility] [place] Heart rate 2023-04-20 18:39:00 78 /min [facility] Body temperature 2023-04-20 18:39:00 36.83 [facility] Respiratory rate 2023-04-20 18:39:00 [facility] Body height 2023-04-20 18:39:00 162.6 cm [facility] Body weight 2023-04-20 18:39:00 65.499 kg [facility] BMI 2023-04-20 18:39:00 24.79 kg/m2 [facility] Body temperature 2022-10-25 14:10:00 36.33 [facility] Systolic blood 2022-10-13 20:00:00 119 mm[Hg] Univer sity of pressure [place] [facility] Diastolic blood 2022-10-13 20:00:00 62 mm[Hg] [facility] Heart rate 2022-10-13 20:00:00 70 /min [facility] Body temperature 2022-10-13 20:00:00 36.83 Michelle [facility] Body height 2022-10-13 20:00:00 162.6 cm [facility] Body weight 2022-10-13 20:00:00 64.864 kg [facility] BMI 2022-10-13 20:00:00 24.55 kg/m2 [facility] Oxygen saturation in 2022-10-13 20:00:00 100 /min [facility] Arterial blood by [place] [facility] P[facility] oximetry Branch Systolic blood 2022-09-15 14:48:00 107 mm[Hg] [facility] Diastolic blood 2022-09-15 14:48:00 64 mm[Hg] [facility] Heart rate 2022-09-15 14:48:00 69 /min [facility] Body temperature 2022-09-15 14:48:00 36.72 Michelle [facility] Body height 2022-09-15 14:48:00 162.6 cm [facility] Body weight 2022-09-15 14:48:00 64.411 kg [facility] BMI 2022-09-15 14:48:00 24.37 kg/m2 [facility] Oxygen saturation in 2022-09-15 14:48:00 100 /min [facility] [place] [facility]xim[facility] Systolic blood 2022-08-31 19:00:00 115 mm[Hg] [facility] Diastolic blood 2022-08-31 19:00:00 66 mm[Hg] [facility] Heart rate 2022-08-31 19:00:00 70 /min [facility] Respiratory rate 2022-08-31 19:00:00 16 /min Univ [facility] of [facility] Oxygen saturation in 2022-08-31 19:00:00 100 /min University of Arterial blood by [facility] Pulse oximetry Branch Body temperature 2022-08-31 16:52:00 36.5 Michelle [facility] Body height 2022-08-31 16:52:00 162.6 cm [facility]i [facility] of [facility] Body weight 2022-08-31 16:52:00 64.411 kg Universi ty of [facility] Branch BMI 2022-08-31 16:52:00 24.37 kg/m2 [facility] Systolic blood 2022-05-22 14:03:00 119 mm[Hg] Univer [facility]ity of [facility] Diastolic blood 2022-05-22 14:03:00 68 mm[Hg] Unive rsity of [facility] Heart rate 2022-05-22 14:03:00 63 /min [facility]i [facility] of [facility] Body temperature 2022-05-22 14:03:00 36.28 Michelle [facility] Respiratory rate 2022-05-22 14:03:00 18 /min Univ ersity of [facility] Body height 2022-05-22 14:03:00 162.6 cm [facility] [place] [facility] [place] Body weight 2022-05-22 14:03:00 64.774 kg [facility] [place] [facility] [place] BMI 2022-05-22 14:03:00 24.51 kg/m2 [facility] of [facility] Systolic blood 2022-05-01 18:01:00 119 mm[Hg] Univer [facility]ity of [facility] Diastolic blood 2022-05-01 18:01:00 64 mm[Hg] Unive rsity of pressure [facility] Heart rate 2022-05-01 18:01:00 65 /min Universi ty of [facility] Body temperature 2022-05-01 18:01:00 35.44 Michelle [facility] Body height 2022-05-01 18:01:00 162.6 cm [facility] of [facility] Body weight 2022-05-01 18:01:00 62.914 kg [facility] BMI 2022-05-01 18:01:00 23.81 kg/m2 [facility] Procedures Procedure Date / Time Performing Clinician Source Performed CBC WITH DIFF 2023-04-20 19:19:00 Tiffanie Abreu [facility] ASSIGNMENT OF BENEFITS 2023-04-20 18:25:28 Doctor Unassigned, Un [facility] Name [facility] PATIENT CORRESPONDENCE 2023-01-26 05:01:00 Doctor Unassigned, Un [facility] (LETTERS, USPS [place] [facility] [place] DOCUMENTATION) CONSENT/REFUSAL FOR 2022-12-06 15:52:20 Doctor Unassigned, [facility] DIAGNOSIS AND TREATMENT [place] [facility] ASSIGNMENT OF BENEFITS 2022-12-06 15:50:30 Doctor Unassigned, [facility] Name [facility] GARDASIL 9 (HPV 9V) 2022-10-25 14:12:18 Akua Frye Uni [facility] POCT TEST 2022-09-15 15:32:00 Bertin Zavala [facility] FLU VACC ([id number]), 6 2022-09-15 15:25:14 Bertin Zavala [facility] MO-66 YRS, .5ML, IM, QUAD Medica l Branch (FLUCELVAX) RAPID INFLUENZA A/B 2022-08-31 18:03:00 Qiana Alaniz [facility] CONSENT/REFUSAL FOR 2022-08-31 16:46:34 Doctor Unassiam, [facility] DIAGNOSIS AND TREATMENT [place] [facility] GARDASIL 9 (HPV 9V) 2022-05-22 13:54:09 Akua Frye Uni [facility] PAP SMEAR-LIQUID BASED-CP 2022-05-01 20:15:00 Jennifer Gutierres [facility] Encounters Start End Encounter Admission Attending Care Care Encounter Source Date/Time Date/Time Type Type Clinicians Facility Department ID 2023-04-23 2023-04-23 Mark Abreu [facility] 1.2.840.114 [id number] [facility] 00:00:00 00:00:00 Management Tiffanie Gray SLURRY CONTROL OPERATOR HELPER 350.1.13.10 ity of REGIONAL 4.2.7.2.686 John as MATERNAL [id number] [facility] & CHILD [address] [place] [address] 2023-04-23 2023-04-23 Telephone Brady [facility] 1.2.840.114 [id number] Univers 00:00:00 00:00:00 Tiffanie Gray SLURRY CONTROL OPERATOR HELPER 350.1.13.10 i ty of REGIONAL 4.2.7.2.686 John as MATERNAL [id number] [facility] & CHILD [address] [place] [address] 2023-04-20 2023-04-20 [id number] Univers 13:30:00 14:20:04 TIFFANIE potts [facility] 2023-04-20 2023-04-20 Office Tiffanie Abreu [facility] 1.2.84 0.114 [id number] Univers 13:30:00 14:20:04 Visit Akua Frye SLURRY CONTROL OPERATOR HELPER 350.1.13. 10 ity of [facility] 4.2.7.2.686 John as MATERNAL [id number] [facility] & CHILD [address] [place] [address] 2023-04-20 2023-04-20 Orders Doctor DWAINE 1.2.840.114 [id number] Univers 00:00:00 00:00:00 Only Unassigned, IMANI 350.1.13.10 ity of [place] [facility] 4.2.7.2.686 John as [id number] [address] 2023-01-26 2023-01-26 Outpatient R MELVA [facility] [id number] Univers 14:45:00 14:45:00 AKUA potts o f [facility] 2023-01-26 2023-01-26 Orders Doctor DWAINE 1.2.840.114 [id number] Univers 00:00:00 00:00:00 Only Unassigned, IMANI 350.1.13.10 ity of [place] [facility] 4.2.7.2.686 John as [phone] [address] 2022-12-25 2022-12-25 Outpatient R SALLY [facility] [id number] Univers 09:30:00 09:30:00 BERTIN potts [facility] 2022-12-13 2022-12-13 Outpatient R MELVA [facility] [id number] Univers 09:15:00 09:15:00 AKUA potts o vladimir [facility] 2022-12-06 2022-12-06 Outpatient R SALLY [facility] [id number] Univers 10:50:56 23:59:00 BERTIN potts [facility] 2022-12-06 2022-12-06 [facility] 1.2.840.114 [id number] Univers 10:50:56 23:59:00 Encounter [facility].10 [facility].2.7.[facility].686 [id number] [address] 2022-10-25 2022-10-25 [facility] [id number] Univers 08:00:00 08:00:14 AKUA gilbert [facility] 2022-10-25 2022-10-25 Nurse Visit, Ang-Rmchp Nurse [facility] 1.2 .840.114 [id number] Univers 08:00:00 08:00:14 Visit Akua Frye SLURRY CONTROL OPERATOR HELPER 350.1.13. 10 [facility] 4.2.7.2.68 John as MATERNAL [id number] Med ical & CHILD [address] [place] [address] 2022-10-23 2022-10-23 Outpatient R MELVA [facility] [id number] Univers 09:00:00 09:00:00 AKUA gilbert [facility] 2022-10-13 2022-10-13 Greenskeeper Supervisor Lab, Ang - Db [facility] 1.2.840.1 [id number] Univers 14:30:00 14:45:00 Visit Bertin [facility].10 [facility] 4.2.7.2.686 John as EVIE?BLEA [id number] [address] MEDICAL OFFICE BUILDING 2022-10-13 2022-10-13 Outpatient R SALLY [facility] [id number] Univers 14:00:00 14:31:16 BERTIN potts [facility] 2022-10-13 2022-10-13 Office [facility] 1.2.840.114 [id number] Univers 14:00:00 14:31:16 Visit Bertin CROSS 350.1.13.10 it y of [place] 4.2.7.2.686 John as EVIE?BLEA [id number] [address] MEDICAL OFFICE [facility] 2022-09-15 2022-09-15 [facility] [id number] Univers 10:30:03 11:14:00 BERTIN potts [facility] 2022-09-15 2022-09-15 Greenskeeper Supervisor Lab, Kavon [facility] 1.2.840.1 [id number] [facility] 09:30:00 09:45:00 Visit Bertin Zavala HEALTH 350.1.13.10 ity of [place] 4.2.7.2.686 John as EVIE?BLEA [id number] [facility] [address] [facility] OFFICE [facility] 2022-09-15 2022-09-15 Office [facility] 1.2.840.114 [id number] Univers 09:00:00 09:28:09 Visit Bertin CROSS 350.1.13.10 it y of [place] 4.2.7.2.686 John as EVIE?BLEA [id number] [address] OFFICE [facility] 2022-09-15 2022-09-15 Telephone [facility] 1.2.374.160 [id number] Univers 00:00:00 00:00:00 Bertin HEALTH 350.1.13.10 it y of [place] 4.2.7.2.686 John as EVIE?BLEA [id number] [address] MEDICAL OFFICE [facility] 2022-09-06 2022-09-06 [facility] [id number] Univers 15:00:00 15:00:00 BERTIN potts [facility] 2022-08-31 2022-08-31 Emergency X Qiana ALANIZ [facility] ERT [id number] Univers 10:53:00 13:07:00 ity of [facility] 2022-08-31 2022-08-31 Emergency Jl, Qiana [facility] 1.2.840.114 [id number] Univers 10:53:00 13:07:00 Mercedes [place] 350.1.13.10 i ty [facility] 4.2.7.[address] [facility] [id number] [facility] 084 [place] 2022-05-23 2022-05-23 Telephone Melva [facility] 1.2.840.114 [id number] Univers 00:00:00 00:00:00 Akua Pierce SLURRY CONTROL OPERATOR HELPER 350.1.13.10 ity of [facility] 4.2.7.2.686 John as MATERNAL [id number] [facility] ical & CHILD [address] [place] [address] 2022-05-22 2022-05-22 Outpatient R MELVA [facility] [id number] Univers 08:30:00 09:05:30 AKUA potts o f [facility] 2022-05-22 2022-05-22 [facility] 1.2 .840.114 [id number] Univers 08:30:00 09:05:30 Visit Akua Frye SLURRY CONTROL OPERATOR HELPER 350.1.13. 10 ity of [facility] 4.2.7.2.686 John as MATERNAL [id number] [facility] & [address] 2022-05-02 2022-05-02 Orders Doctor DWAINE 1.2.840.114 [id number] Univers 00:00:00 00:00:00 Only Unassigned, IMANI 350.1.13.10 it[place] of [place] [facility] 4.2.7.2.686 John as [phone] [facility] 009 [place] 2022-05-01 2022-05-01 Outpatient Edgar SHAVER [facility] [id number] Univers 13:30:00 15:10:21 DOUGLAS itjeronimo [facility] 2022-05-01 2022-05-01 Outpatient Edgar SHAVER [facility] [id number] Univers 13:30:00 15:10:21 [facility] 2022-05-01 Office Pgy3 UNIVERSIT [id number] Univers 13:30:00 15:10:21 Visit SivakumarJeronimoDouglas Jeronimo CROSS 350.1.13.10 ity of [facility] 4.2.7.2.686 [place] [id number] [facility] 113 [place] 2022-04-20 2022-04-20 Office [facility] 1.2.207.342 [id number] Univers 09:00:00 10:08:33 Visit Akua Pierce SLURRY CONTROL OPERATOR HELPER 350.1.13.10 ity of REGIONAL 4.2.7.2.686 John as MATERNAL [id number] Med ical & CHILD [address] [place] [address] 2022-04-20 2022-04-20 Outpatient R MELVA [facility] [id number] Univers 09:00:00 10:08:33 AKUA ruthy o f [facility] 2022-04-20 2022-04-20 Orders Doctor DWAINE 1.2.840.114 [id number] Univers 00:00:00 00:00:00 Only Unassigned, IMANI 350.1.13.10 ity of [place] [facility] 4.2.7.2.686 John as [id number] [facility] 009 [place] 2022-03-21 2022-03-21 Outpatient R RASHEED ROMERO [facility] [id number] Univers 14:30:00 14:30:00 ity [facility] Results Test Description Test Time Test Comments Results Result Comments Source POCT TEST 2022-09-15 15:32:00 Test Item Value Reference Range Interpretation Comme nts POCT PREG (test code = 1605) Negative On board controls acceptable with C Line (test code = 3574) Yes POCT PREG LOT # (test code = 3575) POCT PREG TEST DATE (test code = 3576) Lab Interpretation (test code = 14470-7) [id number] 15:32:00 Test Item Value Reference Range Interpretation Comments POCT PREG (test code = 1605) Negative On board controls acceptable with C Yes Line (test code = 3574) POCT PREG LOT # (test code = 3575) POCT PREG TEST DATE (test code = 3576) Lab Interpretation (test code = Normal 63933-0) [facility] Notes Date/Time Note Provider Source 2023-04-23 11:16:18-00:00 Formatting of this note migh t be different from the original. [facility] Patient informed of results and recommendations, verbalized understanding. Electronically signed by Rae Buitrago LVN a t 04/23/2023 11:16 AM CDT 2023-04-23 10:11:48-00:00 Formatting of this note migh t be different from the original. [facility] Please call patient and let her know hgb has only increase a small amount. She should continue iron supplements BID, increase iron rich foods, and follow up with PCP.
[2023-05-01] MEDS ORDERED: DIPHENHYDRAMINE 50 MG/ML VIAL ONE (13:34)
[2023-05-01] MEDS ORDERED: dexAMETHasone 10 MG/ML VIAL ONE (13:34)
[2023-05-01] MEDS ORDERED: METOCLOPRAMIDE 10 MG/2mL INJ ONE (13:34)
[2023-05-01] MEDS ORDERED: KETOROLAC 30 MG/ML INJ ONE (13:35)
[2023-05-01] MEDS ORDERED: NA CHLORIDE 0.9% 1,000 ML ONE (13:35)
--- NOTE | 2023-05-01 14:15 | EDPHYS ---
Physician Documentation [facility] Name: Tomasa Dahl Age: 42 yrs Sex: Female : 1980 Arrival Date: 05/01/2023 Time: 12:42 Bed 9 Private MD: ED Physician Te Puri HPI: 05/01 13:35 This 42 yrs old Female presents to ER via Ambulatory with complaints of Migraine, ms3 Nausea, Weakness. 13:35 42-year-old female with past medical history of anemia, migraine presents for headache ms3 that began this morning. Patient endorses nausea and generalized weakness. Patient states the discomfort is a 6/10 and described as pounding located in the right frontal region of her head. patient states that this headache is similar to previous headaches. Patient states cold makes the headache worse and warm makes her headache feel better.. CAN MARKER: 12:53 LMP N/A - control method, IUD aa5 Historical: - Allergies: 12:56 No Known Allergies; aa5 - PMHx: 12:53 Anemia; Migraine; aa5 - Immunization history:: Adult Immunizations unknown. - Social history:: Smoking status: Patient denies any tobacco usage or history of. ROS: 13:35 Constitutional: Negative for fever, and chills. Neck: Negative for injury, pain, and ms3 swelling, Cardiovascular: Negative for chest pain, and palpitations. Respiratory: Negative for shortness of breath, cough, wheezing, and pleuritic chest pain, Abdomen/GI: Negative for abdominal pain, nausea, vomiting, diarrhea, and constipation, MS/Extremity: Negative for injury and deformity, Skin: Negative for injury, rash, and discoloration. 13:35 Neuro: Positive for headache. 13:35 All other systems are negative. Exam: 13:35 Constitutional: This is a well developed, well nourished patient who is awake, alert, ms3 and in no acute distress. Head/Face: Normocephalic, atraumatic. Neck: Trachea midline, no cervical lymphadenopathy. Supple, full range of motion without nuchal rigidity, or vertebral point tenderness. No Meningismus. Chest/axilla: Normal chest wall appearance and motion. Nontender with no deformity. Cardiovascular: Regular rate and rhythm with a normal S1 and S2. No gallops, murmurs, or rubs. Normal PMI, no JVD. No pulse deficits. Respiratory: Lungs have equal breath sounds bilaterally, clear to auscultation and percussion. No rales, rhonchi or wheezes noted. No increased work of breathing, no retractions or nasal flaring. Abdomen/GI: Soft, non-tender, with normal bowel sounds. No distension or tympany. No guarding or rebound. No evidence of tenderness throughout. Skin: Warm, dry with normal turgor. Normal color with no rashes, no lesions, and no evidence of cellulitis. MS/ Extremity: Pulses equal, no cyanosis. Neurovascular intact. Full, normal range of motion. Vital Signs: 12:53 BP 121 / 70; Pulse 72; Resp 18 S; Temp 98.6(TE); Pulse Ox 100% on R/A; Weight 65.32 kg aa5 (R); Height 5 ft. 4 in. (R); 14:10 BP 110 / 65; Pulse 66; Resp 16; Pulse Ox 100% on R/A; tf2 12:53 Body Mass Index 24.72 (65.32 kg, 162.56 cm) aa5 [place] Coma Score: 13:38 Eye Response: spontaneous(4). Motor Response: obeys commands(6). Verbal Response: tf2 oriented(5). Total: 15. MDM: 13:19 Patient medically screened. ms3 13:35 Differential diagnosis: Migraine vs REYES vs Sinusitis. ms3 14:16 Data reviewed: vital signs, nurses notes, and as a result, I will discharge patient. I ms3 considered the following discharge prescriptions or medication management in the emergency department Medications were administered in the Emergency Department. See MAR. Counseling: I had a detailed discussion with the patient and/or guardian regarding the historical points, exam findings, and any diagnostic results supporting the discharge/admit diagnosis, the need for outpatient follow up, to return to the emergency department if symptoms worsen or persist or if there are any questions or concerns that arise at home. Response to treatment: the patient's symptoms have markedly improved after treatment. Special discussion: I discussed with the patient/guardian in detail that at this point there is no indication for admission to the hospital. It is understood, however, that if the symptoms persist or worsen the patient needs to return immediately for re-evaluation. ED course: Patient requesting discharge at this time. On reevaluation patient is improved, alert and orient x4, no apparent distress, nontoxic-appearing, speaking full sentences. Patient to follow-up with Dr. Vazquez in 2 to 3 days. Patient and her understand and agree with plan. All questions were answered. Return precautions discussed include worsening symptoms, or any other concerns.. 05/01 13:17 Order name: IV Start; Complete Time: 13:37 aa5 Administered Medications: 13:37 Drug: diphenhydrAMINE IVP 25 mg Route: IVP; Site: right antecubital; tf2 14:26 Follow up: Response: No adverse reaction tf2 13:37 Drug: Ketorolac IVP 10 mg 10 mg Route: IVP; Site: right antecubital; tf2 14:25 Follow up: Response: No adverse reaction tf2 14:26 Follow up: Response: No adverse reaction tf2 13:37 Drug: Decadron - Dexamethasone IVP 10 mg Route: IVP; Site: right antecubital; tf2 14:25 Follow up: Response: No adverse reaction tf2 13:37 Drug: NS 0.9% IV 1000 ml Route: IV; Rate: 1000 ml; Site: right antecubital; tf2 14:10 Follow up: Response: No adverse reaction; IV Status: Completed infusion tf2 13:38 Drug: metoCLOPramide IVP 10 mg Route: IVP; Site: right antecubital; tf2 14:26 Follow up: Response: No adverse reaction tf2 Disposition Summary: 05/01/23 14:15 Discharge Ordered Location: Home ms3 Condition: Stable ms3 Diagnosis - Migraine without aura, not intractable ms3 Followup: ms3 - With: Alex Vazquez MD - When: 2 - 3 days - Reason: Recheck today's complaints Discharge Instructions: - Discharge Summary Sheet ms3 - Migraine Headache ms3 Forms: - Medication Reconciliation Form ms3 - Thank You Letter ms3 - Antibiotic Education ms3 - Prescription Opioid Use ms3 - Patient Portal Instructions ms3 - Leadership Thank You Letter ms3 Signatures: Tiffany Farias, RN RN aa5 Te Puri DO DO ms3 Rita Brady RN RN tf2
--- NOTE | 2023-05-01 14:15 | ER ---
Nurse's Notes [facility] Name: Tomasa Dahl Age: 42 yrs Sex: Female : 1980 Arrival Date: 05/01/2023 Time: 12:42 Bed 9 Private MD: Diagnosis: Migraine without aura, not intractable Presentation: 05/01 12:53 Chief complaint: Patient states: migraine and nausea. aa5 12:53 Coronavirus screen: At this time, the client does not indicate any symptoms associated aa5 with coronavirus-19. Ebola Screen: Patient denies travel to an Ebola-affected area in the 21 days before illness onset. Initial Sepsis Screen: Does the patient meet any 2 criteria? No. Patient's initial sepsis screen is negative. Does the patient have a suspected source of infection? No. Patient's initial sepsis screen is negative. Risk Assessment: Do you want to hurt yourself or someone else? Patient reports no desire to harm self or others. Onset of symptoms was April 2023. 12:53 Acuity: AMY 3 aa5 12:53 Method Of Arrival: Ambulatory aa5 Triage Assessment: 14:28 General: Behavior is calm, cooperative. tf2 C T TECH: 12:53 LMP N/A - control method, IUD aa5 Historical: - Allergies: 12:56 No Known Allergies; aa5 - PMHx: 12:53 Anemia; Migraine; aa5 - Immunization history:: Adult Immunizations unknown. - Social history:: Smoking status: Patient denies any tobacco usage or history of. Screenin:38 [facility] ED Fall Risk Assessment (Adult) History of falling in the last 3 months, tf2 including since admission No falls in past 3 months (0 pts) Confusion or Disorientation No (0 pts) Intoxicated or Sedated No (0 pts) Impaired Gait No (0 pts) Mobility Assist Device Used No (0 pt) Altered Elimination No (0 pt) Score/Fall Risk Level 0 - 2 = Low Risk Oriented to surroundings, Maintained a safe environment, Educated pt \T\ family on fall prevention, incl call for assistance when getting out of bed. Abuse screen: Denies threats or abuse. Denies injuries from another. Nutritional screening: No deficits noted. Tuberculosis screening: No symptoms or risk factors identified. Assessment: 13:38 General: Appears in no apparent distress. Pain: Complains of pain in top of head, tf2 forehead, right mormon and left mormon Pain currently is 6 out of 10 on a pain scale. Neuro: No deficits noted. Neuro: Reports headache in entire. Cardiovascular: No deficits noted. Respiratory: No deficits noted. GI: Abdomen is flat, non-distended, Reports nausea. : No deficits noted. EENT: No deficits noted. Derm: No deficits noted. Musculoskeletal: No deficits noted. Vital Signs: 12:53 BP 121 / 70; Pulse 72; Resp 18 S; Temp 98.6(TE); Pulse Ox 100% on R/A; Weight 65.32 kg aa5 (R); Height 5 ft. 4 in. (R); 14:10 BP 110 / 65; Pulse 66; Resp 16; Pulse Ox 100% on R/A; tf2 12:53 Body Mass Index 24.72 (65.32 kg, 162.56 cm) aa5 [place] Coma Score: 13:38 Eye Response: spontaneous(4). Motor Response: obeys commands(6). Verbal Response: tf2 oriented(5). Total: 15. ED Course: 12:43 Patient arrived in ED. rg4 12:50 Te Puri DO is Attending Physician. ms3 12:53 Arm band placed on. aa5 12:54 Triage completed. aa5 13:21 Rita Brady, RN is Primary Nurse. tf2 13:38 No apparent distress. Awaiting re-evaluation by ER provider. tf2 13:38 Patient has correct armband on for positive identification. Bed in low position. Call tf2 light in reach. Side rails up X 1. Provided Education on: meds being given. 13:38 No provider procedures requiring assistance completed. Inserted saline lock: 20 gauge tf2 22 gauge in right antecubital area, using aseptic technique. 14:14 Alxe Vazquez MD is Referral Physician. ms3 14:27 IV discontinued, bleeding controlled, Pressure dressing applied. tf2 Administered Medications: 13:37 Drug: diphenhydrAMINE IVP 25 mg Route: IVP; Site: right antecubital; tf2 14:26 Follow up: Response: No adverse reaction tf2 13:37 Drug: Ketorolac IVP 10 mg 10 mg Route: IVP; Site: right antecubital; tf2 14:25 Follow up: Response: No adverse reaction tf2 14:26 Follow up: Response: No adverse reaction tf2 13:37 Drug: Decadron - Dexamethasone IVP 10 mg Route: IVP; Site: right antecubital; tf2 14:25 Follow up: Response: No adverse reaction tf2 13:37 Drug: NS 0.9% IV 1000 ml Route: IV; Rate: 1000 ml; Site: right antecubital; tf2 14:10 Follow up: Response: No adverse reaction; IV Status: Completed infusion tf2 13:38 Drug: metoCLOPramide IVP 10 mg Route: IVP; Site: right antecubital; tf2 14:26 Follow up: Response: No adverse reaction tf2 Medication: 13:38 VIS not applicable for this client. tf2 Outcome: 14:15 Discharge ordered by . ms3 14:27 Discharged to home ambulatory. tf2 14:27 Condition: good 14:27 Discharge instructions given to patient, significant other, Instructed on discharge instructions, follow up and referral plans. medication usage, Demonstrated understanding of instructions, follow-up care. 14:29 Patient left the ED. tf2 Signatures: Tiffany Farias, RN RN aa5 Lluvia Buitrago rg4 Te Puri DO DO ms3 Rita Brady, RN RN tf2 Corrections: (The following items were deleted from the chart) 12:56 12:53 Pulse 72bpm; Resp 18bpm; Spontaneous; Pulse Ox 100% RA; Temp 98.6F Temporal; aa5 65.32 kg Reported; Height 5 ft. 4 in. Reported; BMI: 24.7; aa5
[2023-05-01 14:51] VITALS: TEMP 98.6; O2SAT 100
[2023-05-01 14:55] VITALS: BP 110/65
== END 2023-05-01 14:29 | disposition home or self-care (01) ==
LOC: ER 12:42
DX: G43.009 Migraine without aura, not intractable, without status migrainosus (principal)
CPT/HCPCS: 96361; 96375; 96374; 99284; J2765; J1200; J1100; J7030

== ENCOUNTER → 2023-09-24 | Emergency (ER) | payer BC, OTHER ==
--- OUTSIDE RECORDS SUMMARY | 2023-09-24 19:35 | XMS REPORT | Continuity of Care Document ---
Author Name Unknown Address [address] [facility] [address] [place] [address] [facility] thconnect Address [address] [facility] [place] [address] Care Team Providers Care Cooker Mechanic Name Role Phone Bertin Sanders Primary Care Physician [phone] TIFFANIE ABREU Attending Clinician Unavaila sammi [email or web address]_S Attending Clinician UnavailTiffanie Hinojosa CNM Attending Clinician [phone] Akua Alvarado Attending Clinician + AKUA FRYE Attending Clinician Unavail able Doctor Unassigned, Hospers Attending Clinician U BERTIN Torres Attending Clinician Unavailable Bertin Sanders Attending Clinician [phone] Visit, Ang-Rmchp Nurse Attending Clinician Unava ildenice Lab, Kavon - Db Attending Clinician Unavailable Qiana ALANIZ Attending Clinician Unavailable Qiana Cruz Attending Clinician [phone] DOUGLAS SHAVER Attending Clinician Unavailable Pgy3 Attending Clinician Unavailable Douglas Shaver MD Attending Clinician [phone] RASHEED ROMERO Attending Clinician Unavailable [email or web address]_S Admitting Clinician UnavailBERTIN Woodall Admitting Clinician Unavailable Payers Payer Name Policy Type Policy Number Effective Date Expirati on Date Source Problems Condition Name Condition Details Condition Category Status Onset Date Resolution Date Last Treatment Date Treating Clinician Comments Source Presence of intrauteri ne contracept radha device Presence of intrauteri ne contracept radha device Disease Active 8-11 00:00: 00 [facility] Anemia, unspecifie d Anemia, unspecifie d Disease Active 8-11 00:00: 00 [facility] Need for hepatitis C screening test Need for hepatitis C screening test Disease Active 2-03 00:00: 00 [facility] Acute pain of right knee Acute pain of right knee Disease Active 1- 00:00: 00 [facility] Metatarsal jamir of left foot Metatarsal jamir of left foot Disease Active 1 00:00: 00 [facility] Left foot pain Left foot pain Disease Active 1 00:00: 00 [facility] Iron deficiency anemia due to chronic blood loss Iron deficiency anemia due to chronic blood loss Disease Active 106 00:00: 00 [facility] Need for vaccinatio n Need for vaccinatio n Disease Active 1 00:00: 00 [facility] Cervical Papanicola ou smear negative within last 12 months Cervical Papanicola ou smear negative within last 12 months Disease Active 8-16 00:00: 00 Overview: Formattin g of this note might be different from the original. 04/2020 NIL pap neg HPV See scanned chart [facility] Well woman exam Well woman exam Disease Active 05-22 00:00: 00 Overview: Formattin g of this note might be different from the original. No pap records received [facility] Excessive or frequent menstruati on Excessive or frequent menstruati on Disease Active 2-19 00:00: 00 [facility] Other general counseling and advice for contracept radha management Other general counseling and advice for contracept radha management Disease Active 06-09 00:00: 00 Overview: Formattin g of this note might be different from the original. 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 Exposure to SARS-CoV-2 (event) 2022-12-15 00:00:00 2022-12-25 09:03:[address] [facility] Alcohol intake 2022-08-31 00:00:00 2022-08-31 00:00:00 0 /d [facility] Tobacco use and exposure 2022-04-20 00:00:00 2022-04-20 00:00:00 Smokeless tobacco non-user [facility] Sex Assigned At 1980 00:00:00 1980 00:00:00 [facility] Smoking Status Start Date Stop Date Source Never smoked tobacco [facility] Medications Ordered Medication Name Filled Medication Name Start Date Stop Date Current Medication? Ordering Clinician Indication Dosage Frequency Signature (SIG) Comments Components Source ferrous sulfate 325 mg (65 mg iron) tablet 04-22 12:00: 42 04-22 00:00 :00 No [id number] 325mg Take 325 mg by mouth daily. [facility] ferrous sulfate 325 mg (65 mg iron) tablet 04-22 12:00: 42 04-22 00:00 :00 No [id number] 325mg Take 325 mg by mouth daily. [facility] nystatin 100,000 unit/gram cream 04-20 00:00: 00 Yes [id number] Apply to area(s) 2 (two) times daily. [facility] nystatin 100,000 unit/gram cream 04-20 00:00: 00 Yes [id number] Apply to area(s) 2 (two) times daily. [facility],000 unit/gram cream 2022-0 8-11 00:00: 00 Yes [id number] Apply to area(s) 2 (two) times daily. [facility] nystatin 100,000 unit/gram cream 2022-0 8-11 00:00: 00 Yes [id number] Apply to area(s) 2 (two) times daily. [facility] ibuprofen 600 mg tablet 0 1-06 00:00: 00 09-30 05:59 :00 No [id number] 600mg Take 1 tablet by mouth every 6 (six) hours as needed for Temp > 38.5 C for up to 14 days. [facility] ibuprofen 600 mg tablet 2022-0 1-06 00:00: 00 09-30 05:59 :00 No [id number] 600mg Take 1 tablet by mouth every 6 (six) hours as needed for Temp > 38.5 C for up to 14 days. [facility] ibuprofen 600 mg tablet 2022-0 1-06 00:00: 00 09-30 05:59 :00 No [id number] 9107 600mg Take 1 tablet by mouth every 6 (six) hours as needed for Temp > 38.5 C for up to 14 days. [facility] ibuprofen 600 mg tablet 0 1-06 00:00: 00 09-30 05:59 :00 No [id number] 9107 600mg Take 1 tablet by mouth every 6 (six) hours as needed for Temp > 38.5 C for up to 14 days. [facility] ibuprofen 600 mg tablet 2022-0 1-06 00:00: 00 09-30 05:59 :00 No [id number] 600mg Take 1 tablet by mouth every 6 (six) hours as needed for Temp > 38.5 C for up to 14 days. [facility] benzonatate 200 mg capsule 2021-09 2- 00:00: 00 Yes [id number] 200mg Take 1 capsule by mouth 3 (three) times daily as needed for Cough for up to 20 doses. [facility] mg capsule 2021-1 2- 00:00: 00 Yes [id number] 200mg Take 1 capsule by mouth 3 (three) times daily as needed for Cough for up to 20 doses. [facility] mg capsule 2021-1 2- 00:00: 00 Yes [id number] 200mg Take 1 capsule by mouth 3 (three) times daily as needed for Cough for up to 20 doses. [facility] mg capsule 2021- 2- 00:00: 00 Yes [id number] 200mg Take 1 capsule by mouth 3 (three) times daily as needed for Cough for up to 20 doses. [facility] benzonatate 200 mg capsule 2021-11-01 00:00: 00 Yes [id number] 200mg Take 1 capsule by mouth 3 (three) times daily as needed for Cough for up to 20 doses. [facility] mg capsule 2021- 2 00:00: 00 Yes [id number] 200mg Take 1 capsule by mouth 3 (three) times daily as needed for Cough for up to 20 doses. [facility] benzonatate 200 mg capsule 2021-11-01 00:00: 00 Yes [id number] 200mg Take 1 capsule by mouth 3 (three) times daily as needed for Cough for up to 20 doses. [facility] benzonatate 200 mg capsule 2021-1 2 00:00: 00 Yes [id number] 200mg Take 1 capsule by mouth 3 (three) times daily as needed for Cough for up to 20 doses. [facility] benzonatate 200 mg capsule 2021-1 2- 00:00: 00 Yes [id number] 200mg Take 1 capsule by mouth 3 (three) times daily as needed for Cough for up to 20 doses. [facility] mg capsule 2021-1 2- 00:00: 00 Yes [id number] 200mg Take 1 capsule by mouth 3 (three) times daily as needed for Cough for up to 20 doses. [facility] benzonatate 200 mg capsule 20210-11 00:00: 00 Yes [id number] 200mg Take 1 capsule by mouth 3 (three) times daily as needed for Cough for up to 20 doses. [facility] benzonatate 200 mg capsule 2021-09 00:00: 00 Yes [id number] 200mg Take 1 capsule by mouth 3 (three) times daily as needed for Cough for up to 20 doses. [facility] benzonatate 200 mg capsule 2021-09 00:00: 00 Yes [id number] 200mg Take 1 capsule by mouth 3 (three) times daily as needed for Cough for up to 20 doses. [facility] benzonatate 200 mg capsule 2021-09 00:00: 00 04-20 00:00 :00 No [id number] 200mg Take 1 capsule by mouth 3 (three) times daily as needed for Cough for up to 20 doses. [facility] benzonatate 200 mg capsule 2021-09 00:00: 00 04-20 00:00 :00 No [id number] 200mg Take 1 capsule by mouth 3 (three) times daily as needed for Cough for up to 20 doses. [facility] ibuprofen (IBU) tablet 800 mg 05-01 21:00: 00 05-01 20:36 :00 No [id number] 800mg [facility] ibuprofen (IBU) tablet 800 mg 05-01 21:00: 00 05-01 20:36 :00 No [id number] 800mg 800 mg, Oral, ONCE, 1 dose, On Sun05/01/22 at 1600, Routine [facility] levonorgest reL (LILETTA) IUD 1 Device 05-01 20:30: 00 05-01 20:36 :00 No [id number] 1{devic e} [facility] levonorgest reL (LILETTA) IUD 1 Device 05-01 20:30: 00 05-01 20:36 :00 No [id number] 1{devic e} 1 Device, Intrauteri ne, ONCE, 1 dose, On Sun05/01/22 at 1530, Routine [facility] ferrous sulfate 325 mg (65 mg iron) tablet 04-20 09:16: 13 Yes [id number] 325mg Take 325 mg by mouth daily. [facility] CYANOCOBALA MIN, VITAMIN B-12, (VITAMIN B-12 ORAL) 04-20 09:16: 13 Yes Take by mouth. [facility] ferrous sulfate 325 mg (65 mg iron) tablet 04-20 09:16: 13 Yes [id number] 325mg Take 325 mg by mouth daily. [facility] CYANOCOBALA MIN, VITAMIN B-12, (VITAMIN B-12 ORAL) 04-20 09:16: 13 Yes Take by mouth. [facility] ferrous sulfate 325 mg (65 mg iron) tablet 04-20 09:16: 13 Yes [id number] 325mg Take 325 mg by mouth daily. [facility] CYANOCOBALA MIN, VITAMIN B-12, (VITAMIN B-12 ORAL) 04-20 09:16: 13 Yes Take by mouth. [facility] ferrous sulfate 325 mg (65 mg iron) tablet 04-20 09:16: 13 Yes [id number] 325mg Take 325 mg by mouth daily. [facility] CYANOCOBALA MIN, VITAMIN B-12, (VITAMIN B-12 ORAL) 04-20 09:16: 13 Yes Take by mouth. [facility] ferrous sulfate 325 mg (65 mg iron) tablet 04-20 09:16: 13 Yes [id number] 325mg Take 325 mg by mouth daily. [facility] CYANOCOBALA MIN, VITAMIN B-12, (VITAMIN B-12 ORAL) 04-20 09:16: 13 Yes Take by mouth. [facility] ferrous sulfate 325 mg (65 mg iron) tablet 04-20 09:16: 13 Yes [id number] 325mg Take 325 mg by mouth daily. [facility] CYANOCOBALA MIN, VITAMIN B-12, (VITAMIN B-12 ORAL) 04-20 09:16: 13 Yes Take by mouth. [facility] ferrous sulfate 325 mg (65 mg iron) tablet 04-20 09:16: 13 Yes [id number] 325mg Take 325 mg by mouth daily. [facility] CYANOCOBALA MIN, VITAMIN B-12, (VITAMIN B-12 ORAL) 04-20 09:16: 13 Yes Take by mouth. [facility] ferrous sulfate 325 mg (65 mg iron) tablet 04-20 09:16: 13 Yes [id number] 325mg Take 325 mg by mouth daily. [facility] CYANOCOBALA MIN, VITAMIN B-12, (VITAMIN B-12 ORAL) 04-20 09:16: 13 Yes Take by mouth. [facility] ferrous sulfate 325 mg (65 mg iron) tablet 04-20 09:16: 13 Yes [id number] 325mg Take 325 mg by mouth daily. [facility] CYANOCOBALA MIN, VITAMIN B-12, (VITAMIN B-12 ORAL) 04-20 09:16: 13 Yes Take by mouth. [facility] ferrous sulfate 325 mg (65 mg iron) tablet 04-20 09:16: 13 Yes [id number] 325mg Take 325 mg by mouth daily. [facility] CYANOCOBALA MIN, VITAMIN B-12, (VITAMIN B-12 ORAL) 04-20 09:16: 13 Yes Take by mouth. [facility] ferrous sulfate 325 mg (65 mg iron) tablet 04-20 09:16: 13 Yes [id number] 325mg Take 325 mg by mouth daily. [facility] CYANOCOBALA MIN, VITAMIN B-12, (VITAMIN B-12 ORAL) 04-20 09:16: 13 Yes Take by mouth. [facility] ferrous sulfate 325 mg (65 mg iron) tablet 04-20 09:16: 13 Yes [id number] 325mg Take 325 mg by mouth daily. [facility] CYANOCOBALA MIN, VITAMIN B-12, (VITAMIN B-12 ORAL) 04-20 09:16: 13 Yes Take by mouth. [facility] ferrous sulfate 325 mg (65 mg iron) tablet 04-20 09:16: 13 Yes [id number] 325mg Take 325 mg by mouth daily. [facility] CYANOCOBALA MIN, VITAMIN B-12, (VITAMIN B-12 ORAL) 04-20 09:16: 13 Yes Take by mouth. [facility] ferrous sulfate 325 mg (65 mg iron) tablet 04-20 09:16: 13 Yes [id number] 325mg Take 325 mg by mouth daily. [facility] CYANOCOBALA MIN, VITAMIN B-12, (VITAMIN B-12 ORAL) 04-20 09:16: 13 Yes Take by mouth. [facility] ferrous sulfate 325 mg (65 mg iron) tablet 04-20 09:16: 13 Yes [id number] 325mg Take 325 mg by mouth daily. [facility] CYANOCOBALA MIN, VITAMIN B-12, (VITAMIN B-12 ORAL) 04-20 09:16: 13 Yes Take by mouth. [facility] ferrous sulfate 325 mg (65 mg iron) tablet 04-20 09:16: 13 Yes [id number] 325mg Take 325 mg by mouth daily. [facility] CYANOCOBALA MIN, VITAMIN B-12, (VITAMIN B-12 ORAL) 04-20 09:16: 13 Yes Take by mouth. [facility] CYANOCOBALA MIN, VITAMIN B-12, (VITAMIN B-12 ORAL) 04-20 09:16: 13 Yes Take by mouth. [facility] CYANOCOBALA MIN, VITAMIN B-12, (VITAMIN B-12 ORAL) 04-20 09:16: 13 Yes Take by mouth. [facility] CYANOCOBALA MIN, VITAMIN B-12, (VITAMIN B-12 ORAL) 04-20 09:16: 13 Yes Take by mouth. [facility] CYANOCOBALA MIN, VITAMIN B-12, (VITAMIN B-12 ORAL) 8-11 09:16: 13 Yes Take by mouth. [facility] CYANOCOBALA MIN, VITAMIN B-12, (VITAMIN B-12 ORAL) 8-11 09:16: 13 Yes Take by mouth. [facility] Immunizations Ordered Immunization Name Filled Immunization Name Date Status Comments Source HPV9 2022-10-25 00:00:[address] [facility] HPV9 2022-10-25 00:00:[address] [facility] HPV9 2022-10-25 00:00:[address] [facility] HPV9 2022-10-25 00:00:[address] [facility] HPV9 2022-10-25 00:00:[address] [facility] HPV9 2022-10-25 00:00:[address] [facility] HPV9 2022-10-25 00:00:[address] [facility] HPV9 2022-10-25 00:00:[address] [facility] Influenza Virus Vaccine Quad IM, Preserv and ABX Free 6 MO-64 YRS 2022-09-15 00:00:[address] [facility] Influenza Virus Vaccine Quad IM, Preserv and ABX Free 6 MO-64 YRS 2022-09-15 00:00:[address] [facility] Influenza Virus Vaccine Quad IM, Preserv and ABX Free 6 MO-64 YRS 2022-09-15 00:00:[address] [facility] Influenza Virus Vaccine Quad IM, Preserv and ABX Free 6 MO-64 YRS 2022-09-15 00:00:[address] [facility] Influenza Virus Vaccine Quad IM, Preserv and ABX Free 6 MO-64 YRS 2022-09-15 00:00:[address] [facility] Influenza Virus Vaccine Quad IM, Preserv and ABX Free 6 MO-64 YRS 2022-09-15 00:00:[address] [facility] Influenza Virus Vaccine Quad IM, Preserv and ABX Free 6 MO-64 YRS 2022-09-15 00:00:[address] [facility] Influenza Virus Vaccine Quad IM, Preserv and ABX Free 6 MO-64 YRS 2022-09-15 00:00:[address] [facility] Influenza Virus Vaccine Quad IM, Preserv and ABX Free 6 MO-64 YRS 2022-09-15 00:00:[address] [facility] Influenza Virus Vaccine Quad IM, Preserv and ABX Free 6 MO-64 YRS 2022-09-15 00:00:[address] [facility] Influenza Virus Vaccine Quad IM, Preserv and ABX Free 6 MO-64 YRS 2022-09-15 00:00:[address] [facility] Influenza Virus Vaccine Quad IM, Preserv and ABX Free 6 MO-64 YRS 2022-09-15 00:00:[address] [facility] Influenza Virus Vaccine Quad IM, Preserv and ABX Free 6 MO-64 YRS 2022-09-15 00:00:[address] [facility] Influenza Virus Vaccine Quad IM, Preserv and ABX Free 6 MO-64 YRS 2022-09-15 00:00:[address] [facility] Influenza Virus Vaccine Quad IM, Preserv and ABX Free 6 MO-64 YRS 2022-09-15 00:00:[address] [facility] HPV9 2022-05-22 00:00:[address] [facility] HPV9 2022-05-22 00:00:[address] [facility] HPV9 2022-05-22 00:00:[address] [facility] HPV9 2022-05-22 00:00:[address] [facility] HPV9 2022-05-22 00:00:[address] [facility] HPV9 2022-05-22 00:00:[address] [facility] HPV9 2022-05-22 00:00:[address] [facility] HPV9 2022-05-22 00:00:[address] [facility] HPV9 2022-05-22 00:00:[address] [facility] HPV9 2022-05-22 00:00:[address] [facility] HPV9 2022-05-22 00:00:[address] [facility] HPV9 2022-05-22 00:00:[address] [facility] HPV9 2022-05-22 00:00:00 Completed [facility] HPV9 2022-05-22 00:00:00 Completed [facility] HPV9 2022-05-22 00:00:00 Completed [facility] HPV9 2022-05-22 00:00:00 Completed [facility] HPV9 2022-05-22 00:00:00 Completed [facility] HPV9 2022-05-22 00:00:00 Completed [facility] HPV9 2022-05-22 00:00:00 Completed [facility] HPV9 2022-04-20 00:00:00 Completed [facility] HPV9 2022-04-20 00:00:[address] [facility] HPV9 2022-04-20 00:00:00 Completed [facility] HPV9 2022-04-20 00:00:[address] [facility] HPV9 2022-04-20 00:00:00 Completed [facility] HPV9 2022-04-20 00:00:00 Completed [facility] HPV9 2022-04-20 00:00:00 Completed [facility] HPV9 2022-04-20 00:00:00 Completed [facility] HPV9 2022-04-20 00:00:00 Completed [facility] HPV9 2022-04-20 00:00:00 Completed [facility] HPV9 2022-04-20 00:00:00 Completed [facility] HPV9 2022-04-20 00:00:00 Completed [facility] HPV9 2022-04-20 00:00:00 Completed [facility] HPV9 2022-04-20 00:00:00 Completed [facility] HPV9 2022-04-20 00:00:00 Completed [facility] HPV9 2022-04-20 00:00:00 Completed [facility] HPV9 2022-04-20 00:00:00 Completed [facility] HPV9 2022-04-20 00:00:00 Completed [facility] HPV9 2022-04-20 00:00:00 Completed [facility] HPV9 2022-04-20 00:00:[address] [facility] Td 2016-08-06 00:00:[address] [facility] Td 2016-08-06 00:00:[address] [facility] Td 2016-08-06 00:00:00 Completed [facility] TD, NOS 2016-08-06 00:00:00 Completed [facility] TD, NOS 2016-08-06 00:00:00 Completed [facility] TD, NOS 2016-08-06 00:00:00 Completed [facility] TD, NOS 2016-08-06 00:00:00 Completed [facility] TD, NOS 2016-08-06 00:00:00 Completed [facility] TD, NOS 2016-08-06 00:00:00 Completed [facility] TD, NOS 2016-08-06 00:00:00 Completed [facility] TD, NOS 2016-08-06 00:00:[address] [facility] TD, NOS 2016-08-06 00:00:00 Completed [facility] TD, NOS 2016-08-06 00:00:00 Completed [facility] TD, NOS 2016-08-06 00:00:00 Completed [facility] TD, NOS 2016-08-06 00:00:00 Completed [facility] TD, NOS 2016-08-06 00:00:00 Completed [facility] TD, NOS 2016-08-06 00:00:00 Completed [facility] TD, NOS 2016-08-06 00:00:[address] [facility] TD, NOS 2016-08-06 00:00:00 Completed [facility] TD, NOS 2016-08-06 00:00:00 Completed [facility] Td 2009-09-10 00:00:00 Completed [facility] Td 2009-09-10 00:00:[address] [facility] Td 2009-09-10 00:00:00 Completed [facility] TD, NOS 2009-09-10 00:00:00 Completed [facility] TD, NOS 2009-09-10 00:00:00 Completed [facility] TD, NOS 2009-09-10 00:00:00 Completed [facility] TD, NOS 2009-09-10 00:00:[address] [facility] TD, NOS 2009-09-10 00:00:[address] [facility] TD, NOS 2009-09-10 00:00:[address] [facility] TD, NOS 2009-09-10 00:00:[address] [facility] TD, NOS 2009-09-10 00:00:[address] [facility] TD, NOS 2009-09-10 00:00:[address] [facility] TD, NOS 2009-09-10 00:00:[address] [facility] TD, NOS 2009-09-10 00:00:[address] [facility] TD, NOS 2009-09-10 00:00:[address] [facility] TD, NOS 2009-09-10 00:00:[address] [facility] TD, NOS 2009-09-10 00:00:[address] [facility] TD, NOS 2009-09-10 00:00:[address] [facility] TD, NOS 2009-09-10 00:00:[address] [facility] TD, NOS 2009-09-10 00:00:[address] [facility] TD, NOS Unknown Completed [facility] TD, NOS Unknown Completed [facility] HPV[address] [facility] HPV[address] [facility] Influenza Virus Vaccine Quad IM, Preserv and ABX Free 6 MO-64 YRS (FLUCELVAX) Unknown Completed [facility] Vital Signs Vital Name Observation Time Observation Value Comments S ource Systolic blood pressure 2023-04-20 18:39:00 123 mm[Hg] [facility] Diastolic blood pressure 2023-04-20 18:39:00 66 mm[Hg] [facility] Heart rate 2023-04-20 18:39:00 78 /min [facility] Body temperature 2023-04-20 18:39:[address] [facility] Respiratory rate 2023-04-20 18:39:00 16 /min [facility] Body height 2023-04-20 18:39:00 162.6 cm [facility] Body weight 2023-04-20 18:39:00 65.499 kg [facility] BMI 2023-04-20 18:39:00 24.79 kg/m2 [facility] Body temperature 2022-10-25 14:10:[address] [facility] Systolic blood pressure 2022-10-13 20:00:00 119 mm[Hg] [facility] Diastolic blood pressure 2022-10-13 20:00:00 62 mm[Hg] [facility] Heart rate 2022-10-13 20:00:00 70 /min [facility] Body temperature 2022-10-13 20:00:[address] [facility] Body height 2022-10-13 20:00:00 162.6 cm [facility] Body weight 2022-10-13 20:00:00 64.864 kg [facility] BMI 2022-10-13 20:00:00 24.55 kg/m2 [facility] Oxygen saturation in Arterial blood by Pulse oximetry 2022-10-13 20:00:00 100 /min [facility] Systolic blood pressure 2022-09-15 14:48:00 107 mm[Hg] [facility] Diastolic blood pressure 2022-09-15 14:48:00 64 mm[Hg] [facility] Heart rate 2022-09-15 14:48:00 69 /min [facility] Body temperature 2022-09-15 14:48:[address] [facility] Body height 2022-09-15 14:48:00 162.6 cm [facility] Body weight 2022-09-15 14:48:00 64.411 kg [facility] BMI 2022-09-15 14:48:00 24.37 kg/m2 [facility] Oxygen saturation in Arterial blood by Pulse oximetry 2022-09-15 14:48:00 100 /min [facility] Systolic blood pressure 2022-08-31 19:00:00 115 mm[Hg] [facility] Diastolic blood pressure 2022-08-31 19:00:00 66 mm[Hg] [facility] Heart rate 2022-08-31 19:00:00 70 /min [facility] Respiratory rate 2022-08-31 19:00:00 16 /min [facility] Oxygen saturation in Arterial blood by Pulse oximetry 2022-08-31 19:00:00 100 /min [facility] Body temperature 2022-08-31 16:52:[address] [facility] Body height 2022-08-31 16:52:00 162.6 cm [facility] Body weight 2022-08-31 16:52:00 64.411 kg [facility] BMI 2022-08-31 16:52:00 24.37 kg/m2 [facility] Systolic blood pressure 2022-05-22 14:03:00 119 mm[Hg] [facility] Diastolic blood pressure 2022-05-22 14:03:00 68 mm[Hg] [facility] Heart rate 2022-05-22 14:03:00 63 /min [facility] Body temperature 2022-05-22 14:03:[address] [facility] Respiratory rate 2022-05-22 14:03:00 18 /min [facility] Body height 2022-05-22 14:03:00 162.6 cm [facility] Body weight 2022-05-22 14:03:00 64.774 kg [facility] BMI 2022-05-22 14:03:00 24.51 kg/m2 [facility] Systolic blood pressure 2022-05-01 18:01:00 119 mm[Hg] [facility] Diastolic blood pressure 2022-05-01 18:01:00 64 mm[Hg] [facility] Heart rate 2022-05-01 18:01:00 65 /min [facility] Body temperature 2022-05-01 18:01:[address] [facility] Body height 2022-05-01 18:01:00 162.6 cm [facility] Body weight 2022-05-01 18:01:00 62.914 kg [facility] BMI 2022-05-01 18:01:00 23.81 kg/m2 [facility] Procedures Procedure Date / Time Performed Performing Clinician Source CBC WITH DIFF 2023-04-20 19:19:[address] [facility] ASSIGNMENT OF BENEFITS 2023-04-20 18:25:28 Docto r Unassigned, [facility] PATIENT CORRESPONDENCE (LETTERS, USPS DOCUMENTATION) 2023-01-26 05:01:00 Doctor Unassigned, [facility] CONSENT/REFUSAL FOR DIAGNOSIS AND TREATMENT 2022-12-06 15:52:20 Doctor Unassigned, [facility] ASSIGNMENT OF BENEFITS 2022-12-06 15:50:30 Docto r Unassigned, [facility] GARDASIL 9 (HPV 9V) VACCINE 2022-10-25 14:12:[address] [facility] POCT TEST 2022-09-15 15:32:[address] [facility] [place] [place] FLU VACC ([id number]), 6 MO-64 YRS, .5ML, IM, QUAD (FLUCELVAX) 2022-09-15 15:25:[address] [facility] RAPID INFLUENZA A/B 2022-08-31 18:03:[address] [facility] CONSENT/REFUSAL FOR DIAGNOSIS AND TREATMENT 2022-08-31 16:46:34 Doctor Unassigned, [facility] GARDASIL 9 (HPV 9V) VACCINE 2022-05-22 13:54:[address] [facility] PAP SMEAR-LIQUID BASED-CP 2022-05-01 20:15:[address] [facility] Encounters Start Date/Time End Date/Time Encounter Type Admission Type Attending Clinicians Care Facility Care Department Encounter ID Source 2023-07-10 00:00:00 2023-07-10 00:00:00 Outpatient GC_GCBZW_Ka dizahraa_S [facility] [id number] [facility] 2023-07-06 00:00:00 2023-07-06 00:00:00 Outpatient GC_GCBZW_Ka diyala_S [facility] [id number] [facility] 2023-04-23 00:00:00 2023-04-23 00:00:00 Case Management Tiffanie Abreu [facility] PSYCH ASSISTANT [facility] & CHILD [facility] 1.2.840.114 350.1.13.10 4.2.7.2.686 [id number] [facility] 2023-04-23 00:00:00 2023-04-23 00:00:00 Telephone Tiffanie Abreu [facility] PSYCH ASSISTANT [facility] 1.2.840.114 350.1.13.10 4.2.7.2.686 [id number] [facility] 2023-04-20 13:30:00 2023-04-20 14:20:04 Outpatient R TIFFANIE ABREU [facility] [id number] [facility] 2023-04-20 13:30:00 2023-04-20 14:20:04 Office Visit Tiffanie Abreu Damilola C [facility] 1.2.840.114 350.1.13.10 4.2.7.2.686 [id number] [facility] 2023-04-20 00:00:00 2023-04-20 00:00:00 Orders Only Doctor Unassigned, [facility] 1.2840.114 350.1.13.10 4.2.7.2.686 [id number] [facility] 2023-01-26 14:45:00 2023-01-26 14:45:00 Outpatient R AKUA FRYE [facility] [id number] [facility] 2023-01-26 00:00:00 2023-01-26 00:00:00 Orders Only Doctor Unassigned, [facility] 1.840.114 350.1.13.10 4.2.7.2.686 [id number] [facility] 2022-12-25 09:30:00 2022-12-25 09:30:00 Outpatient R BERTIN ZAVALA [facility] [id number] [facility] 2022-12-13 09:15:00 2022-12-13 09:15:00 Outpatient R AKUA FRYE [facility] [id number] [facility] 2022-12-06 10:50:56 2022-12-06 23:59:00 Outpatient R BERTIN ZAVALA [facility] [id number] [facility] 2022-12-06 10:50:56 2022-12-06 23:59:00 Hospital Encounter Bertin Zavala [facility] .840.114 350.1.13.10 4.2.7.2.686 [id number] [facility] 2022-10-25 08:00:00 2022-10-25 08:00:14 Outpatient AKUA KELLEY [facility] [id number] [facility] 2022-10-25 08:00:00 2022-10-25 08:00:14 Nurse Visit Visit, EyadRmchp Nurse Akua Frye [facility] PSYCH ASSISTANT [facility] MATERNAL & CHILD 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, Bertin Parker COUNT INCLUDES THE [facility] MEDICAL OFFICE [facility] 1.840.114 350.1.13.10 4.2.7.2.686 [id number] [facility] 2022-10-13 14:00:00 2022-10-13 14:31:16 Outpatient R BERTIN ZAVALA [facility] [id number] [facility] 2022-10-13 14:00:00 2022-10-13 14:31:16 Office Visit WillyBertin nance [facility] MEDICAL OFFICE BUILDING 1.840.114 350.1.13.10 4.2.7.2.686 [id number] [facility] 2022-09-18 00:00:00 2022-09-18 00:00:00 Patient Secure Msg Doctor Unassigned, [facility] EVIE?[facility] MEDICAL OFFICE BUILDING 1.840.114 350.1.13.10 4.2.7.2.686 [id number] [facility] 2022-09-15 10:30:03 2022-09-15 11:14:00 Outpatient R WILLYBERTIN Nance [facility] [id number] [facility] 2022-09-15 09:30:00 2022-09-15 09:45:00 Gauge Maker Apprentice Visit Lab, Kavon - Ezekiel Zavala Critical access hospital EVIE?[facility] MEDICAL OFFICE BUILDING 1.840.114 350.1.13.10 4.2.7.2.686 [id number] [facility] 2022-09-15 09:00:00 2022-09-15 09:28:09 Office Visit SallyBertin [facility] MED[facility] OFF[facility] BUILD[facility] 1.840.114 350.1.13.10 4.2.7.2.686 [id number] [facility] 2022-09-15 00:00:00 2022-09-15 00:00:00 Telephone Bertin aZvala COUNT INCLUDES THE [facility] MED[facility] OFFICE BUILDING 1.114 350.1.13.10 4.2.7.2.686 [id number] [facility] 2022-09-06 15:00:00 2022-09-06 15:00:00 Outpatient R BERTIN ZAVALA [facility] [id number] [facility] 2022-08-31 10:53:00 2022-08-31 13:07:00 Emergency X KATTY Qiana [facility] ERT [id number] [facility] 2022-08-31 10:53:00 2022-08-31 13:07:00 Emergency Qiana Alaniz Mercedes [facility] 1..114 350.1.13.10 4.2.7.2.686 [id number] [facility] 2022-05-23 00:00:00 2022-05-23 00:00:00 Telephone Akua Frye [facility] PSYCH ASSISTANT [facility] MATERNAL & CHILD [facility] 1..114 350.1.13.10 4.2.7.2.686 [id number] [facility] 2022-05-22 08:30:00 2022-05-22 09:05:30 Outpatient AKUA KELLEY [facility] [id number] [facility] 2022-05-22 08:30:00 2022-05-22 09:05:30 Nurse Visit Visit, Kavon-Rmchp Nurse Akua Frye [facility] PSYCH ASSISTANT [facility] & CHILD [facility] 1..114 350.1.13.10 4.2.7.2.686 [id number] [facility] 2022-05-02 00:00:00 2022-05-02 00:00:00 Orders Only Doctor Unassigned, [facility] 1..114 350.1.13.10 4.2.7.2.686 [id number] [facility] 2022-05-01 13:30:00 2022-05-01 15:10:21 Outpatient DOUGLAS CRUZ [facility] [id number] [facility] 2022-05-01 13:30:00 2022-05-01 15:10:21 Outpatient DOUGLAS CRUZ [facility] [id number] [facility] 2022-05-01 13:30:00 2022-05-01 15:10:21 Office Visit Pgy3 Douglas Shaver [facility] .840.114 350.1.13.10 4.2.7.2.686 [id number] [facility] 2022-04-20 09:00:00 2022-04-20 10:08:33 Office Visit Akua Frye [facility] PSYCH ASSISTANT [facility] MAT[facility]NAL & [facility] 1..840.114 350.1.13.10 4.2.7.2.686 [id number] [facility] 2022-04-20 09:00:00 2022-04-20 10:08:33 Outpatient AKUA KELLEY [facility] [id number] [facility] 2022-04-20 00:00:00 2022-04-20 00:00:00 Orders Only Doctor Unassigned, [facility] .840.114 350.1.13.10 4.2.7.2.686 [id number] [facility] 2022-03-21 14:30:00 2022-03-21 14:30:00 Outpatient RASHEED SHRESTHA [facility] [id number] [facility] Results Test Description Test Time Test Comments Results Result Co mments Source [id number] 15:32:00* Test Item Value Reference Range Interpretation Comme nts POCT PREG (test code = 1605) Negative On board controls acceptable with C Line (test code = 3574) Yes POCT PREG LOT # (test code = 3575) POCT PREG TEST DATE ( test code = 3576) Lab Interpretation (test cod e = 09622-3) Normal [facility] Notes Date/Time Note Provider Source 2023-04-23 11:16:18 oKre+3PpgDqeHdwI8mIE FkjIC6mYdkSJBs0AFzoyH1 Vv6qEHCrPydiZ3Gra82cgO1244-66-90C98:16:18F ormatting of this note might be different from the original.Patient informed of results and recommendations, verbalized understanding. 07373-8Mxkjtxxfv encounter HsorVP7474-84-37C07:16:53Telephone encounter NoteTXT1.2.840.334564.1.13.104.2.7.2.02252 9|[id number] for patient rzhx08319-8RtxuHSOMXWPMOD[address] GfexAguvidgxyXgdywqjvbTWAX7288154893PGBGTG FUNTXCLSLVKLKAQV2716-26-41D93:16:531.2.840 .081256.1.72.3.15|1.2.840.396757.1.13.104. 2.7.2.727879_[id number] [facility] 2023-04-23 10:11:48 iwIze34PUEI4yifeItz6 supafKyGNg5DkDFksqc7By LQNtjvPiF0Bv/XLSveVKGc8811-81-42T97:11:48F ormatting of this note might be different from the original.Please call patient and let her know hgb has only increase a small amount. She should continue iron supplements BID, increase iron rich foods, and follow up with PCP. 84400-6Bebknofdq encounter OrhhSX5086-20-51J04:20:08Telephone encounter NoteTXT1.2.840.831958.1.13.104.2.7.2.55072 9|[id number] for patient dexy71044-1PaetUJWOPJQUOA[address] HedjHpzvnvnrwGammsvmivMOVF3524662702PLLZCJ SWQXVKDPNIBCWHRU5258-48-53R36:20:081.2.840 .400796.1.72.3.15|1.2.840.400579.1.13.104. 2.7.2.727879_[id number] [facility]"
--- NOTE | 2023-09-24 21:05 | RAD REPORT ---
EXAM DESCRIPTION: RAD - Wrist Right 3 View - 09/24/2023 8:59 pm CLINICAL HISTORY: PAIN Pain COMPARISON: <Comparisons> FINDINGS: No fracture or dislocation seen. No foreign body or other soft tissue abnormality. IMPRESSION: Negative examination.
--- NOTE | 2023-09-24 21:12 | EDPHYS ---
Physician Documentation [facility] Name: Tomasa Dahl Age: 42 yrs Sex: Female : 1980 Arrival Date: 09/24/2023 Time: 19:31 Bed IW2 Private MD: ED Physician Tonny Altman HPI: 09/24 20:00 This 42 yrs old Female presents to ER via Ambulatory with complaints of Wrist Pain. cp 20:00 The patient or guardian reports pain. The complaints affect the right wrist diffusely. cp Context: denies specific injury, reports frequent and heavy lifting. Associated signs and symptoms: Pertinent negatives: weakness, numbness of hand. Historical: - Allergies: 19:44 No Known Allergies; cm10 - PMHx: 19:44 Anemia; Migraine; cm10 - Immunization history:: Adult Immunizations up to date. - Social history:: Smoking status: Patient denies any tobacco usage or history of. ROS: 20:05 MS/extremity: Positive for pain, of the right wrist, Negative for injury or acute cp deformity, decreased range of motion, paresthesias, 20:05 Constitutional: Negative for fever, cp 20:05 All other systems are negative, Exam: 20:10 Constitutional: The patient appears in no acute distress, alert, awake, well developed, cp well nourished, 20:10 Head/Face: Normocephalic, atraumatic. cp 20:10 Neck: ROM/movement: is normal, is supple, without pain, no range of motions limitations, 20:10 Chest/axilla: Inspection: normal, 20:10 Cardiovascular: Rate: normal, Pulses: Pulses are 2+ in right radial artery. 20:10 Respiratory: the patient does not display signs of respiratory distress, Respirations: normal, no use of accessory muscles, no retractions, labored breathing, is not present, 20:10 Back: pain, is absent, 20:10 Musculoskeletal/extremity: Extremities: noted in the right wrist: tenderness and pain volar side of right wrist extending proximally, no swelling and skin warm/dry, ROM: full active range of motion, in the right wrist, Perfusion: the extremity is normally perfused throughout, the right hand Sensation intact. 20:10 Skin: cellulitis, is not appreciated, no rash present. Vital Signs: 19:43 BP 113 / 57; Pulse 80; Resp 18; Temp 98.2; Pulse Ox 100% on R/A; Weight 65.77 kg; cm10 Height 5 ft. 4 in. ; Pain 6/10; 19:43 Body Mass Index 24.89 (65.77 kg, 162.56 cm) cm10 19:43 Pain Scale: Adult cm10 MDM: 19:45 Patient medically screened. cp 20:15 Differential diagnosis: closed fracture, tendonitis, sprain, strain. cp 21:10 Data reviewed: vital signs, nurses notes, radiologic studies, plain films. cp 21:10 Counseling: I had a detailed discussion with the patient and/or guardian regarding the cp historical points, exam findings, and any diagnostic results supporting the discharge/admit diagnosis, radiology results, to return to the emergency department if symptoms worsen or persist or if there are any questions or concerns that arise at home. 09/24 19:51 Order name: XRAY Wrist RIGHT 3 view; Complete Time: 21:09 cp 09/24 21:09 Interpretation: Report reviewed. cp 09/24 20:50 Order name: Wrist Splint; Complete Time: 21:08 cp Administered Medications: No medications were administered Disposition: 09/25 17:24 Co-signature as Attending Physician, Tonny Altman MD I reviewed the patient's care rt provided by the Advanced Practice Provider and agree with the diagnosis and treatment plan. Disposition Summary: 09/24/23 21:10 Discharge Ordered Notes: Location: Home cp Problem: new cp Symptoms: have improved cp Condition: Stable cp Diagnosis - Pain in right wrist cp Followup: cp - With: Quan Rivera MD - When: 1 week - Reason: Recheck today's complaints Discharge Instructions: - Discharge Summary Sheet cp - Wrist Pain, Adult cp Forms: - Medication Reconciliation Form cp - Thank You Letter cp - Antibiotic Education cp - Prescription Opioid Use cp - Patient Portal Instructions cp - Leadership Thank You Letter cp Prescriptions: - Diclofenac Sodium 75 mg Oral Tablet Sustained Release - take 1 tablet ORAL route 2 times per day; 30 tablet; Refills: 0, Product cp Selection Permitted Signatures: Dispatcher [employer] EDMS Murali Maguire PA PA cp Tonny Altman MD MD rt Negin Marques RN RN cm10
--- NOTE | 2023-09-24 21:12 | ER ---
Nurse's Notes [facility] Name: Tomasa Dahl Age: 42 yrs Sex: Female : 1980 Arrival Date: 09/24/2023 Time: 19:31 Bed IW2 Private MD: Diagnosis: Pain in right wrist Presentation: 09/24 19:43 Chief complaint: Patient states: Right wrist pain onset a few days ago. pt states that cm10 the pain began after lifting heavy things. Coronavirus screen: Vaccine status: Patient reports receiving the 2nd dose of the covid vaccine. Client denies travel out of the [place] in the last 14 days. Ebola Screen: Patient denies travel to an Ebola-affected area in the 21 days before illness onset. No symptoms or risks identified at this time. Initial Sepsis Screen: Does the patient meet any 2 criteria? No. Patient's initial sepsis screen is negative. Does the patient have a suspected source of infection? No. Patient's initial sepsis screen is negative. Risk Assessment: Do you want to hurt yourself or someone else? Patient reports no desire to harm self or others. Onset of symptoms was September 24, 2023. 19:43 Method Of Arrival: Ambulatory cm10 19:43 Acuity: AMY 4 cm10 Triage Assessment: 19:45 General: Appears in no apparent distress. comfortable, Behavior is calm, cooperative. cm10 Pain: Complains of pain in right wrist. EENT: No deficits noted. No signs and/or symptoms were reported regarding the EENT system. Neuro: No deficits noted. Vargas Agitation-Sedation Scale (RASS): 0 - Alert and Calm Level of Consciousness is awake, alert, Oriented to person, place, time, situation. Cardiovascular: No deficits noted. Patient's skin is warm and dry. Respiratory: No deficits noted. Airway is patent Respiratory effort is even, unlabored, Respiratory pattern is regular, symmetrical. GI:. : No deficits noted. No signs and/or symptoms were reported regarding the genitourinary system. Derm: No deficits noted. No signs and/or symptoms reported regarding the dermatologic system. Skin is intact, Skin is pink, warm \T\ dry. Musculoskeletal: No deficits noted. Range of motion: intact in all extremities. Historical: - Allergies: 19:44 No Known Allergies; cm10 - PMHx: 19:44 Anemia; Migraine; cm10 - Immunization history:: Adult Immunizations up to date. - Social history:: Smoking status: Patient denies any tobacco usage or history of. Screenin:45 [facility] ED Fall Risk Assessment (Adult) History of falling in the last 3 months, cm10 including since admission No falls in past 3 months (0 pts) Confusion or Disorientation No (0 pts) Intoxicated or Sedated No (0 pts) Impaired Gait No (0 pts) Mobility Assist Device Used No (0 pt) Altered Elimination No (0 pt) Score/Fall Risk Level 0 - 2 = Low Risk Oriented to surroundings, Maintained a safe environment, Hourly rounding (assess needs \T\ fall precautionary measures) done. Abuse screen: Denies threats or abuse. Denies injuries from another. Nutritional screening: No deficits noted. Tuberculosis screening: No symptoms or risk factors identified. Vital Signs: 19:43 BP 113 / 57; Pulse 80; Resp 18; Temp 98.2; Pulse Ox 100% on R/A; Weight 65.77 kg; cm10 Height 5 ft. 4 in. ; Pain 6/10; 19:43 Body Mass Index 24.89 (65.77 kg, 162.56 cm) cm10 19:43 Pain Scale: Adult cm10 ED Course: 19:38 Patient arrived in ED. ag3 19:44 Triage completed. cm10 19:44 Arm band placed on Patient placed in waiting room. cm10 19:45 Murali Maguire PA is PHCP. cp 19:45 Tonny Altman MD is Attending Physician. cp 19:45 Patient has correct armband on for positive identification. Provided Education on: ER cm10 process and procedures. . Cardiac monitoring not applicable on this patient. 19:45 No provider procedures requiring assistance completed. Patient did not have IV access cm10 during this emergency room visit. 21:00 XRAY Wrist RIGHT 3 view In Process Unspecified. EDMS 21:08 Velcro wrist splint applied to right wrist. cm10 21:09 Quan Rivera MD is Referral Physician. cp Administered Medications: No medications were administered Medication: 19:45 VIS not applicable for this client. cm10 Outcome: 21:10 Discharge ordered by . cp 21:19 Discharged to home ambulatory, cm10 21:19 Condition: good 21:19 Discharge instructions given to patient, Instructed on discharge instructions, follow up and referral plans. Demonstrated understanding of instructions, follow-up care, medications, Prescriptions given X 21:19 Patient left the ED. cm10 Signatures: Dispatcher [employer] EDMS Murali Maguire PA PA cp Gomez, Alice 3 Negin Marques, NINO RN cm10
[2023-09-24 22:10] VITALS: BP 113/57; TEMP 98.2; O2SAT 100
== END ==
LOC: ER 19:31
DX: M25.531 Pain in right wrist (principal)
CPT/HCPCS: 99283

== ENCOUNTER 2023-12-18 07:20 | Emergency (ER) | payer OTHER ==
--- OUTSIDE RECORDS SUMMARY | 2023-12-18 07:23 | XMS REPORT | Continuity of Care Document ---
Author Name Unknown Address [address] [facility] [address] [place] [address] [facility] Address [address] [facility] [place] [address] Care Team Providers Care Travel Professional Name Role Phone BERTIN ZAVALA Primary Care Physician Unavailab AKUA Cr Attending Clinician Unavail able Tiffanie Abreu CNM Attending Clinician [phone] AMANDA JENNINGS Attending Clinician Unavail able Amanda Jennings MD Attending Clinician [phone] TIFFANIE ABREU Attending Clinician Unavaila sammi [email or web address]_S Attending Clinician Unavaila sammi Frye Akua COLBERT Attending Clinician + Doctor Unassigned, [place] Attending Clinician U BERTIN Torres Attending Clinician Unavailable Bertin Sanders Attending Clinician [phone] Visit, [facility] Nurse Attending Clinician Unava ildenice Graham, Kavon Rojas Db Attending Clinician Unavailable Qiana ALANIZ Attending Clinician Unavailable Qiana Cruz Attending Clinician [phone] DOUGLAS SHAVER Attending Clinician Unavailable Pgy3 Attending Clinician Unavailable Douglas Shaver MD Attending Clinician [phone] RASHEED ROMERO Attending Clinician Unavailable TIFFANIE ABREU Admitting Clinician Unavaila sammi [id number]_S Admitting Clinician Unavaila BERTIN Roque Admitting Clinician Unavailable Payers Payer Name Policy Type Policy Number Effective Date Expirati on Date Source Problems Condition Name Condition Details Condition Category Status Onset Date Resolution Date Last Treatment Date Treating Clinician Comments Source Presence of intrauteri ne contracept radha device Presence of intrauteri ne contracept radha device Disease Active 8-11 00:00: 00 [facility] Anemia, unspecifie d Anemia, unspecifie d Disease Active 8-11 00:00: 00 [facility] Need for hepatitis C screening test Need for hepatitis C screening test Disease Active 2-03 00:00: 00 [facility] Acute pain of right knee Acute pain of right knee Disease Active 1- 00:00: 00 [facility] Metatarsal jamir of left foot Metatarsal jamir of left foot Disease Active 1- 00:00: 00 [facility] Left foot pain Left foot pain Disease Active 1-06 00:00: 00 [facility] Iron deficiency anemia due to chronic blood loss Iron deficiency anemia due to chronic blood loss Disease Active 1-06 00:00: 00 [facility] Need for vaccinatio n Need for vaccinatio n Disease Active 1-06 00:00: 00 [facility] Cervical Papanicola ou smear negative within last 12 months Cervical Papanicola ou smear negative within last 12 months Disease Active 8-16 00:00: 00 Overview: Formattin g of this note might be different from the original. 04/2020 NIL pap neg HPV See scanned chart [facility] Well woman exam Well woman exam Disease Active 05-22 00:00: 00 Overview: Formattin g of this note might be different from the original. No pap records received [facility] Excessive or frequent menstruati on Excessive or frequent menstruati on Disease Active - 00:00: 00 [facility] Other general counseling and advice for contracept radha management Other general counseling and advice for contracept radha management Disease Active 06-09 00:00: 00 Overview: Formattin g of this note might be different from the original. 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 History of Social function 2023-04-20 00:00:00 2023-04-20 00:00:00 [facility] Exposure to SARS-CoV-2 (event) 2022-12-15 00:00:00 2022-12-25 09:03:[address] [facility] Tobacco use and exposure 2022-04-20 00:00:00 2022-04-20 00:00:00 Smokeless tobacco non-user [facility] Sex Assigned At 1980 00:00:00 1980 00:00:00 [facility] Smoking Status Start Date Stop Date Source Never smoked tobacco [facility] Medications Ordered Medication Name Filled Medication Name Start Date Stop Date Current Medication? Ordering Clinician Indication Dosage Frequency Signature (SIG) Comments Components Source ferrous sulfate 325 mg (65 mg iron) tablet 04-22 12:00: 42 04-22 00:00 :00 No [id number] 325mg Take 325 mg by mouth daily. [facility] nystatin 100,000 unit/gram cream 04-20 00:00: 00 Yes [id number] Apply to area(s) 2 (two) times daily. [facility] ibuprofen 600 mg tablet 1-06 00:00: 00 09-30 05:59 :00 No [id number] 600mg Take 1 tablet by mouth every 6 (six) hours as needed for Temp > 38.5 C for up to 14 days. [facility] benzonatate 200 mg capsule 2021-09 2 00:00: 00 04-20 00:00 :00 No [id number] 200mg Take 1 capsule by mouth 3 (three) times daily as needed for Cough for up to 20 doses. [facility] ibuprofen (IBU) tablet 800 mg 05-01 21:00: 00 05-01 20:36 :00 No [id number] 800mg Univer s [facility] levonorgest reL (LILETTA) IUD 1 Device 05-01 20:30: 00 05-01 20:36 :00 No [id number] 1{devic e} [facility] ferrous sulfate 325 mg (65 mg iron) tablet 04-20 09:16: 13 Yes [id number] 325mg Take 325 mg by mouth daily. [facility] CYANOCOBALA MIN, VITAMIN B-12, (VITAMIN B-12 ORAL) 04-20 09:16: 13 Yes Take by mouth. [facility] Immunizations Ordered Immunization Name Filled Immunization Name Date Status Comments Source HPV9 2022-10-25 00:00:[address] [facility] HPV9 2022-10-25 00:00:[address] [facility] HPV9 2022-10-25 00:00:[address] [facility] HPV9 2022-10-25 00:00:[address] [facility] HPV9 2022-10-25 00:00:[address] [facility] HPV9 2022-10-25 00:00:[address] [facility] HPV9 2022-10-25 00:00:[address] [facility] HPV9 2022-10-25 00:00:[address] [facility] Influenza Virus Vaccine Quad IM, Preserv and ABX Free 6 MO-64 YRS 2022-09-15 00:00:[address] [facility] Influenza Virus Vaccine Quad IM, Preserv and ABX Free 6 MO-64 YRS 2022-09-15 00:00:[address] [facility] Influenza Virus Vaccine Quad IM, Preserv and ABX Free 6 MO-64 YRS 2022-09-15 00:00:[address] [facility] Influenza Virus Vaccine Quad IM, Preserv and ABX Free 6 MO-64 YRS 2022-09-15 00:00:[address] [facility] Influenza Virus Vaccine Quad IM, Preserv and ABX Free 6 MO-64 YRS 2022-09-15 00:00:[address] [facility] Influenza Virus Vaccine Quad IM, Preserv and ABX Free 6 MO-64 YRS 2022-09-15 00:00:[address] [facility] Influenza Virus Vaccine Quad IM, Preserv and ABX Free 6 MO-64 YRS 2022-09-15 00:00:[address] [facility] Influenza Virus Vaccine Quad IM, Preserv and ABX Free 6 MO-64 YRS 2022-09-15 00:00:[address] [facility] Influenza Virus Vaccine Quad IM, Preserv and ABX Free 6 MO-64 YRS 2022-09-15 00:00:[address] [facility] Influenza Virus Vaccine Quad IM, Preserv and ABX Free 6 MO-64 YRS 2022-09-15 00:00:[address] [facility] Influenza Virus Vaccine Quad IM, Preserv and ABX Free 6 MO-64 YRS 2022-09-15 00:00:[address] [facility] Influenza Virus Vaccine Quad IM, Preserv and ABX Free 6 MO-64 YRS 2022-09-15 00:00:[address] [facility] Influenza Virus Vaccine Quad IM, Preserv and ABX Free 6 MO-64 YRS 2022-09-15 00:00:[address] [facility] Influenza Virus Vaccine Quad IM, Preserv and ABX Free 6 MO-64 YRS 2022-09-15 00:00:[address] [facility] Influenza Virus Vaccine Quad IM, Preserv and ABX Free 6 MO-64 YRS 2022-09-15 00:00:[address] [facility] HPV9 2022-05-22 00:00:[address] [facility] HPV9 2022-05-22 00:00:[address] [facility] HPV9 2022-05-22 00:00:[address] [facility] HPV9 2022-05-22 00:00:00 Completed [facility] HPV9 2022-05-22 00:00:[address] [facility] HPV9 2022-05-22 00:00:[address] [facility] HPV9 2022-05-22 00:00:[address] [facility] HPV9 2022-05-22 00:00:[address] [facility] HPV9 2022-05-22 00:00:[address] [facility] HPV9 2022-05-22 00:00:[address] [facility] HPV9 2022-05-22 00:00:[address] [facility] HPV9 2022-05-22 00:00:[address] [facility] HPV9 2022-05-22 00:00:[address] [facility] HPV9 2022-05-22 00:00:[address] [facility] HPV9 2022-05-22 00:00:[address] [facility] HPV9 2022-05-22 00:00:[address] [facility] HPV9 2022-05-22 00:00:[address] [facility] HPV9 2022-05-22 00:00:[address] [facility] HPV9 2022-05-22 00:00:00 Completed [facility] HPV9 2022-04-20 00:00:00 Completed [facility] HPV9 2022-04-20 00:00:[address] [facility] HPV9 2022-04-20 00:00:00 Completed [facility] HPV9 2022-04-20 00:00:00 Completed [facility] HPV9 2022-04-20 00:00:00 Completed [facility] HPV9 2022-04-20 00:00:00 Completed [facility] HPV9 2022-04-20 00:00:00 Completed [facility] HPV9 2022-04-20 00:00:00 Completed [facility] HPV9 2022-04-20 00:00:00 Completed [facility] HPV9 2022-04-20 00:00:00 Completed [facility] HPV9 2022-04-20 00:00:00 Completed [facility] HPV9 2022-04-20 00:00:00 Completed [facility] HPV9 2022-04-20 00:00:00 Completed [facility] HPV9 2022-04-20 00:00:00 Completed [facility] HPV9 2022-04-20 00:00:00 Completed [facility] HPV9 2022-04-20 00:00:00 Completed [facility] HPV9 2022-04-20 00:00:00 Completed [facility] HPV9 2022-04-20 00:00:00 Completed [facility] HPV9 2022-04-20 00:00:[address] [facility] HPV9 2022-04-20 00:00:[address] [facility] Td 2016-08-06 00:00:[address] [facility] Td 2016-08-06 00:00:[address] [facility] Td 2016-08-06 00:00:00 Completed [facility] TD, NOS 2016-08-06 00:00:00 Completed [facility] TD, NOS 2016-08-06 00:00:00 Completed [facility] TD, NOS 2016-08-06 00:00:00 Completed [facility] TD, NOS 2016-08-06 00:00:00 Completed [facility] TD, NOS 2016-08-06 00:00:00 Completed [facility] TD, NOS 2016-08-06 00:00:00 Completed [facility] TD, NOS 2016-08-06 00:00:00 Completed [facility] TD, NOS 2016-08-06 00:00:00 Completed [facility] TD, NOS 2016-08-06 00:00:00 Completed [facility] TD, NOS 2016-08-06 00:00:00 Completed [facility] TD, NOS 2016-08-06 00:00:00 Completed [facility] TD, NOS 2016-08-06 00:00:00 Completed [facility] TD, NOS 2016-08-06 00:00:00 Completed [facility] TD, NOS 2016-08-06 00:00:00 Completed [facility] TD, NOS 2016-08-06 00:00:[address] [facility] TD, NOS 2016-08-06 00:00:[address] [facility] TD, NOS 2016-08-06 00:00:[address] [facility] Td 2009-09-10 00:00:[address] [facility] Td 2009-09-10 00:00:[address] [facility] Td 2009-09-10 00:00:[address] [facility] TD, NOS 2009-09-10 00:00:[address] [facility] TD, NOS 2009-09-10 00:00:[address] [facility] TD, NOS 2009-09-10 00:00:[address] [facility] TD, NOS 2009-09-10 00:00:[address] [facility] TD, NOS 2009-09-10 00:00:[address] [facility] TD, NOS 2009-09-10 00:00:[address] [facility] TD, NOS 2009-09-10 00:00:[address] [facility] TD, NOS 2009-09-10 00:00:[address] [facility] TD, NOS 2009-09-10 00:00:[address] [facility] TD, NOS 2009-09-10 00:00:[address] [facility] TD, NOS 2009-09-10 00:00:[address] [facility] TD, NOS 2009-09-10 00:00:[address] [facility] TD, NOS 2009-09-10 00:00:[address] [facility] TD, NOS 2009-09-10 00:00:[address] [facility] TD, NOS 2009-09-10 00:00:[address] [facility] TD, NOS 2009-09-10 00:00:[address] [facility] TD, NOS 2009-09-10 00:00:[address] [facility] TD, NOS Unknown Completed [facility] TD, NOS Unknown Completed [facility] HPV[address] [facility] HPV[address] [facility] Influenza Virus Vaccine Quad IM, Preserv and ABX Free 6 MO-64 YRS (FLUCELVAX) Unknown Completed [facility] TD, NOS Unknown Completed [facility] TD, NOS Unknown Completed [facility] HPV9 [address] [facility] HPV9 [address] [facility] Influenza Virus Vaccine Quad IM, Preserv and ABX Free 6 MO-64 YRS (FLUCELVAX) Unknown Completed [facility] HPV9 Unknown Com[address] [facility] TD, NOS Unknown Completed [facility] TD, NOS Unknown Completed [facility] HPV9 [address] [facility] HPV[address] [facility] Influenza Virus Vaccine Quad IM, Preserv and ABX Free 6 MO-64 YRS (FLUCELVAX) Unknown Completed [facility] HPV9 [address] [facility] TD, NOS Unknown Completed [facility] TD, NOS Unknown Completed [facility] HPV9 [address] [facility] HPV[address] [facility] Influenza Virus Vaccine Quad IM, Preserv and ABX Free 6 MO-64 YRS (FLUCELVAX) Unknown Completed [facility] HPV9 [address] Com[address] [facility] Vital Signs Vital Name Observation Time Observation Value Comments S ource Systolic blood pressure 2023-04-20 18:39:00 123 mm[Hg] [facility] Diastolic blood pressure 2023-04-20 18:39:00 66 mm[Hg] [facility] Heart rate 2023-04-20 18:39:00 78 /min General acute hospital Body temperature 2023-04-20 18:39:[address] [facility] Respiratory rate 2023-04-20 18:39:00 16 /min [facility] Body height 2023-04-20 18:39:00 162.6 cm [facility] Body weight 2023-04-20 18:39:00 65.499 kg [facility] BMI 2023-04-20 18:39:00 24.79 kg/m2 [facility] Body temperature 2022-10-25 14:10:[address] [facility] Systolic blood pressure 2022-10-13 20:00:00 119 mm[Hg] [facility] Diastolic blood pressure 2022-10-13 20:00:00 62 mm[Hg] [facility] Heart rate 2022-10-13 20:00:00 70 /min [facility] Body temperature 2022-10-13 20:00:[address] [facility] Body height 2022-10-13 20:00:00 162.6 cm [facility] Body weight 2022-10-13 20:00:00 64.864 kg [facility] BMI 2022-10-13 20:00:00 24.55 kg/m2 [facility] Oxygen saturation in Arterial blood by Pulse oximetry 2022-10-13 20:00:00 100 /min [facility] Systolic blood pressure 2022-09-15 14:48:00 107 mm[Hg] [facility] Diastolic blood pressure 2022-09-15 14:48:00 64 mm[Hg] [facility] Heart rate 2022-09-15 14:48:00 69 /min Un[facility] Body temperature 2022-09-15 14:48:[address] [facility] Body height 2022-09-15 14:48:00 162.6 cm [facility] Body weight 2022-09-15 14:48:00 64.411 kg [facility] BMI 2022-09-15 14:48:00 24.37 kg/m2 [facility] Oxygen saturation in Arterial blood by Pulse oximetry 2022-09-15 14:48:00 100 /min [facility] Systolic blood pressure 2022-08-31 19:00:00 115 mm[Hg] [facility] Diastolic blood pressure 2022-08-31 19:00:00 66 mm[Hg] [facility] Heart rate 2022-08-31 19:00:00 70 /min Un[facility] Respiratory rate 2022-08-31 19:00:00 16 /min [facility] Oxygen saturation in Arterial blood by Pulse oximetry 2022-08-31 19:00:00 100 /min [facility] Body temperature 2022-08-31 16:52:[address] [facility] Body height 2022-08-31 16:52:00 162.6 cm [facility] Body weight 2022-08-31 16:52:00 64.411 kg [facility] BMI 2022-08-31 16:52:00 24.37 kg/m2 [facility] Systolic blood pressure 2022-05-22 14:03:00 119 mm[Hg] [facility] Diastolic blood pressure 2022-05-22 14:03:00 68 mm[Hg] [facility] Heart rate 2022-05-22 14:03:00 63 /min Un[facility] Body temperature 2022-05-22 14:03:[address] [facility] Respiratory rate 2022-05-22 14:03:00 18 /min [facility] Body height 2022-05-22 14:03:00 162.6 cm [facility] Body weight 2022-05-22 14:03:00 64.774 kg [facility] BMI 2022-05-22 14:03:00 24.51 kg/m2 [facility] Systolic blood pressure 2022-05-01 18:01:00 119 mm[Hg] [facility] Diastolic blood pressure 2022-05-01 18:01:00 64 mm[Hg] [facility] Heart rate 2022-05-01 18:01:00 65 /min [facility] Body temperature 2022-05-01 18:01:[address] [facility] Body height 2022-05-01 18:01:00 162.6 cm [facility] Body weight 2022-05-01 18:01:00 62.914 kg [facility] BMI 2022-05-01 18:01:00 23.81 kg/m2 [facility] Procedures Procedure Date / Time Performed Performing Clinician Source BI SELF-REQUESTED SCREENING TOMOSYNTHESIS BILATERAL 2023-12-07 20:58:[address] [facility] CBC WITH DIFF 2023-04-20 19:19:[address] [facility] ASSIGNMENT OF BENEFITS 2023-04-20 18:25:28 Docto r Unassigned, [place] [facility] PATIENT CORRESPONDENCE (LETTERS, USPS DOCUMENTATION) 2023-01-26 05:01:00 Doctor Unassigned, [place] [facility] CONSENT/REFUSAL FOR DIAGNOSIS AND TREATMENT 2022-12-06 15:52:20 Doctor Unassigned, [place] [facility] ASSIGNMENT OF BENEFITS 2022-12-06 15:50:30 Docto r Unassigned, [place] [facility] GARDASIL 9 (HPV 9V) VACCINE 2022-10-25 14:12:[address] [facility] POCT TEST 2022-09-15 15:32:00 Bertin Zavala [facility] FLU VACC (), 6 MO-64 YRS, .5ML, IM, QUAD (FLUCELVAX) 2022-09-15 15:25:[address] [facility] RAPID INFLUENZA A/B 2022-08-31 18:03:[address] [facility] CONSENT/REFUSAL FOR DIAGNOSIS AND TREATMENT 2022-08-31 16:46:34 Doctor Unassigned, [place] [facility] GARDASIL 9 (HPV 9V) VACCINE 2022-05-22 13:54:[address] [facility] PAP SMEAR-LIQUID BASED-CP 2022-05-01 20:15:[address] [facility] Encounters Start Date/Time End Date/Time Encounter Type Admission Type Attending Clinicians Care Facility Care Department Encounter ID Source 2023-12-10 00:00:00 2023-12-10 00:00:00 Telephone Tiffnaie Abreu [facility] DIRECTOR OF HOME HEALTH SERVICES [facility] & CHILD [facility] [id number] [facility] 2023-12-10 00:00:00 2023-12-10 00:00:00 Case Management Tiffanie Abreu [facility] DIRECTOR OF HOME HEALTH SERVICES [facility] & CHILD [facility] [id number] [facility] 2023-12-07 15:39:02 2023-12-07 23:59:00 Outpatient Edgar AMANDA JENNINGS [facility] [id number] [facility] 2023-12-07 15:39:02 2023-12-07 23:59:00 Hospital Encounter JenningsNealAmanda Xavier [facility] [id number] [facility] 2023-10-15 00:00:00 2023-10-15 00:00:00 Outpatient TIFFANIE REED [facility] [id number] [facility] 2023-07-10 00:00:00 2023-07-10 00:00:00 Outpatient GC_GCBZW_Ka diyala_S PRIV PRIV [id number] [facility] 2023-07-06 00:00:00 2023-07-06 00:00:00 Outpatient GC_GCBZW_Ka diyala_S PRIV PRIV [id number] [facility] 2023-04-23 00:00:00 2023-04-23 00:00:00 Case Management Tiffanie Abreu [facility] DIRECTOR OF HOME HEALTH SERVICES [facility] CH[facility] .[id number] [facility] 2023-04-23 00:00:00 2023-04-23 00:00:00 Telephone Tiffanie Abreu [facility] DIRECTOR OF HOME HEALTH SERVICES [facility] 1..840.114 350.1.13.10 4.2.7.2.686 [id number] [facility] 2023-04-20 13:30:00 2023-04-20 14:20:04 Outpatient R TIFFANIE ABREU [facility] [id number] [facility] 2023-04-20 13:30:00 2023-04-20 14:20:04 Office Visit Tiffanie Abreu Damilola C [facility] DIRECTOR OF HOME HEALTH SERVICES [facility] 1.840.114 350.1.13.10 4.2.7.2.686 [id number] [facility] 2023-04-20 00:00:00 2023-04-20 00:00:00 Orders Only Doctor Unassigned, [place] [facility] 1.840.114 350.1.13.10 4.2.7.2.686 [id number] [facility] 2023-01-26 14:45:00 2023-01-26 14:45:00 Outpatient R AKUA FRYE [facility] [id number] [facility] 2023-01-26 00:00:00 2023-01-26 00:00:00 Orders Only Doctor Unassigned, [place] [facility] 1.840.114 350.1.13.10 4.2.7.2.686 [id number] [facility] 2022-12-25 09:30:00 2022-12-25 09:30:00 Outpatient R BERTIN ZAVALA [facility] [id number] [facility] 2022-12-13 09:15:00 2022-12-13 09:15:00 Outpatient AKUA KELLEY [facility] [id number] [facility] 2022-12-06 10:50:56 2022-12-06 23:59:00 Outpatient R BERTIN ZAVALA [facility] [id number] [facility] 2022-12-06 10:50:56 2022-12-06 23:59:00 Hospital Encounter Bertin Zavala [facility] 1.84.114 350.1.13.10 4.2.7.2.686 [id number] [facility] 2022-10-25 08:00:00 2022-10-25 08:00:14 Outpatient AKUA KELLEY [facility] [id number] [facility] 2022-10-25 08:00:00 2022-10-25 08:00:14 Nurse Visit Visit, Zeferinochp Akua Krishnamurthy [facility] DIRECTOR OF HOME HEALTH SERVICES [facility] 1.840.114 350.1.13.10 4.2.7.2.686 [id number] [facility] 2022-10-23 09:00:00 2022-10-23 09:00:00 Outpatient AKUA KELLEY [facility] [id number] [facility] 2022-10-13 14:30:00 2022-10-13 14:45:00 Bag Builder Visit Lab, Bertin Parker [facility] 1.840.114 350.1.13.10 4.2.7.2.686 [id number] [facility] 2022-10-13 14:00:00 2022-10-13 14:31:16 Outpatient R BERTIN ZAVALA [facility] [id number] [facility] 2022-10-13 14:00:00 2022-10-13 14:31:16 [facility] 1.840.114 350.1.13.10 4.2.7.2.686 [id number] [facility] 2022-09-18 00:00:00 2022-09-18 00:00:00 Patient Secure Msg Doctor Unassigned, [place] [facility] 1.84.114 350.1.13.10 4.2.7.2.686 [id number] [facility] 2022-09-15 10:30:03 2022-09-15 11:14:00 Outpatient R BERTIN ZAVALA [facility] [id number] [facility] 2022-09-15 09:30:00 2022-09-15 09:45:00 Bag Builder Visit Lab, Kavon - [facility]iel [facility] 1.84.114 350.1.13.10 4.2.7.2.686 [id number] [facility] 2022-09-15 09:00:00 2022-09-15 09:28:09 [facility] 1.84.114 350.1.13.10 4.2.7.2.686 [id number] [facility] 2022-09-15 00:00:00 2022-09-15 00:00:00 Telephone [facility] 1.84.114 350.1.13.10 4.2.7.2.686 [id number] [facility] 2022-09-06 15:00:00 2022-09-06 15:00:00 Outpatient R BERTIN ZAVALA [facility] [id number] [facility] 2022-08-31 10:53:00 2022-08-31 13:07:00 Emergency X Qiana ALANIZ [facility] ERT [id number] [facility] 2022-08-31 10:53:00 2022-08-31 13:07:00 Emergency Qiana Alaniz [facility] 1.84.114 350.1.13.10 4.2.7.2.686 [id number] [facility] 2022-05-23 00:00:00 2022-05-23 00:00:00 Telephone Akua Frye [facility] DIRECTOR OF HOME HEALTH SERVICES [facility] & CHILD [facility] 1.840.114 350.1.13.10 4.2.7.2.686 [id number] [facility] 2022-05-22 08:30:00 2022-05-22 09:05:30 Outpatient R AKUA FRYE [facility] [id number] [facility] 2022-05-22 08:30:00 2022-05-22 09:05:30 [facility]e [facility] DIRECTOR OF HOME HEALTH SERVICES [facility] & CHILD [facility] 1.840.114 350.1.13.10 4.2.7.2.686 [id number] [facility] 2022-05-02 00:00:00 2022-05-02 00:00:00 Orders Only Doctor Unassigned, [place] [facility] 1..114 350.1.13.10 4.2.7.2.686 [id number] [facility] 2022-05-01 13:30:00 2022-05-01 15:10:21 Outpatient R DOUGLAS SHAVER [facility] [id number] [facility] 2022-05-01 13:30:00 2022-05-01 15:10:21 Outpatient R DOUGLAS SHAVER [facility] [id number] [facility] 2022-05-01 13:30:00 2022-05-01 15:10:21 Office Visit Pgy3 Douglas Shaver [facility] 1..114 350.1.13.10 4.2.7.2.686 [id number] [facility] 2022-04-20 09:00:00 2022-04-20 10:08:33 Office Visit Akua Frye [facility] DIRECTOR OF HOME HEALTH SERVICES [facility] 1.2.840.114 350.1.13.10 4.2.7.2.686 [id number] [facility] 2022-04-20 09:00:00 2022-04-20 10:08:33 Outpatient R AKUA FRYE [facility] [id number] [facility] 2022-04-20 00:00:00 2022-04-20 00:00:00 Orders Only Doctor Unassigned, [place] [facility] 1.2.840.114 350.1.13.10 4.2.7.2.686 [id number] [facility] 2022-03-21 14:30:00 2022-03-21 14:30:00 Outpatient R RASHEED ROMERO [facility] [id number] [facility] Results Test Description Test Time Test Comments Results Resul t Comments Source BI SELF-REQUESTED SCREENING TOMOSYNTHESIS BILATERAL 2023-11-10 9 22:36:12 Examination:BI SELF-REQUESTED ?SCREENING TOMOSYNTHESIS BILATERAL History:Patient is 43 year old and is seen for: ?Screening mammogram. Computer-aided detection (CAD) utilized. Comparisons: 12/06/2022 BI SCREENING MAMMOGRAM BILATERAL Findings:The breasts are heterogeneously dense, which may obscure small masses. LeftThere is a 9 mm focal asymmetry in the outer central region, 4 cm from the nipple. ?This is best seen on LCC 24/49 and L MLO 20/59. RightThere is no evidence of suspicious masses, calcifications, or other abnormal findings in the right breast. Impression:LeftTher e is a 9 mm focal asymmetry in the outer central region, 4 cm from the nipple. ?This is best seen on LCC 24/49 and L MLO 20/59. RightNo mammographic evidence of malignancy. Recommendation:Ronn synthesis spot compression with possible ultrasound - LeftAnnual mammographic follow-up - Right BI-RADS Category: Left: 0 - Incomplete: Needs Additional Imaging EvaluationRight: 1 - NegativeOverall: 0 - Incomplete: Needs Additional Imaging [facility] [id number] 15:32:00* Test Item Value Reference Range Interpretation Comme nts POCT PREG (test code = 1605) Negative On board controls acceptable with C Line (test code = 3574) Yes POCT PREG LOT # (test code = 3575) POCT PREG TEST DATE ( test code = 3576) Lab Interpretation (test cod e = 32687-8) Normal [facility] Notes Date/Time Note Provider Source 2023-12-10 11:10:26 pGBWNxpDOKRLZ8CEpHTG foddWIu2/5eWiHPZO4AYwT m3sfMU6PK1vo7lmKwPVuwe0682-87-04A90:10:26F ormatting of this note might be different from the original.Pt notified of mammogram results- left breast 9 mm focal asymmetry in the outer central region, 4 cm from the nipple. Informed patient a diagnostic mammogram and breast USG has been ordered. Pt states she has private insurance from her employer and [employer]. Pt states she will use private insurance for imaging. Call transferred to front staff for insurance to be updated. Pt verbalized understanding. MAYLIN CHRISTIANSEN RN 12/10/2023 11:13 AM 70090-3Ifonlgusx encounter RbefSE6804-00-52N34:14:09Telephone encounter NoteTXT1.2.840.878441.1.13.104.2.7.2.89240 9|[id number] for patient fmqr81947-4GlbnZINVALFIVOYIlimegtlu C-CDA narrative text[address] HmxnQashnfzwxVvxuezcvdYJAI0599394425AYTMLE AYYVDBNGWOZLAFQS4033-22-86F87:14:091.2.840 .090434.1.72.3.15|1.2.840.260369.1.13.104. 2.7.2.727879_[id number] [facility] 2023-12-10 10:40:59 z3aeG1/2V7dx38xNCtcO cmi1EbehM2MIxZHs4LIqas 129+06bPgg7InmYKB9MrVV7529-48-63V27:40:59F ormatting of this note might be different from the original.Patient self requested screening mammogram.However, it showed left breast 9 mm focal asymmetry in the outer central region, 4 cm from the nipple. She needs diagnostic mammogram and breast ultrasound which I ordered. She needs BCCS screening prior to imaging if she still has HTW. 80410-4Rijpntxio encounter AsgbJR3364-31-47S77:44:02Telephone encounter NoteTXT1.2.840.106408.1.13.104.2.7.2.10693 9|[id number] for patient uwrk91964-9DjigBSLBCUFTNNQPlnyzluqb C-CDA narrative text[address] AnihOvadksphjSuyobnwdiQLMG6300187110FGZJUM NZFDYLSKVOBSTFRH0297-59-88A37:44:021.2.840 .694717.1.72.3.15|1.2.840.530327.1.13.104. 2.7.2.727879_[id number] [facility] 2023-04-23 11:16:18 oKre+6CvkFblYypB2mWV UhmSL9pIeqBDMi4TWrziO0 Wh3qESTdMetnT3Jee12kiH9770-94-85D24:16:18F ormatting of this note might be different from the original.Patient informed of results and recommendations, verbalized understanding. 33038-3Ftwrkmrxo encounter UchiDU8747-78-58V71:16:53Telephone encounter NoteTXT1.2.840.600812.1.13.104.2.7.2.29323 9|[id number] for patient tnuo64291-3OemoRZEAGPOQII96 [address] [id number] TCMLBNHEHRRMBEJE4903-54-47H97:16:531.2.840 .600405.1.72.3.15|1.2.840.751548.1.13.104. 2.7.2.727879_[id number] [facility] 2023-04-23 10:11:48 yxHtv76LQVQ6ibrlJia6 qioclCrWMl9MdQMwqco8Jo IXEfvuQfM1Et/QSTsbBIRl6600-52-54B86:11:48F ormatting of this note might be different from the original.Please call patient and let her know hgb has only increase a small amount. She should continue iron supplements BID, increase iron rich foods, and follow up with PCP. 70142-8Gfkzbquds encounter PhizLL0380-49-11J73:20:08Telephone encounter NoteTXT1.2.840.362867.1.13.104.2.7.2.06053 9|[id number] for patient oyga51472-2NxdfENOZZJTGQJ96 [address] [id number] SNTOKHRVNZQBDMLV7909-74-22M29:20:081.2.840 .272398.1.72.3.15|1.2.840.278543.1.13.104. 2.7.2.727879_[id number] [facility]"
[2023-12-18] MEDS ORDERED: KETOROLAC 30 MG/ML INJ ONE (07:48)
[2023-12-18 07:55] LABS: Absolute Eosinophils 0.1 K/uL (0-0.5); Absolute Lymphocytes (CBC) 1.3 K/uL (0.7-4.9); Absolute Monocytes 0.4 K/uL (0.1-1.3); Absolute Neutrophil 2.3 K/uL (1.8-8.0); Basophils % 0.7 % (0-1.3); Eosinophils % 1.5 % (0-4.4); Hematocrit 24.7 % (36.0-45.0); Hemoglobin 7.7 g/dL (12.0-15.0); Lymphocytes % 31.3 % (15.3-44.8); MCH 21.6 pg (27.0-35.0); MCHC 31.2 g/dL (32.0-36.0); MCV 69.1 fL (80-100); MPV 8.2 fL (7.6-11.3); Monocytes % 10.7 % (3.3-12.3); Neutrophils % 55.8 % (41.7-73.7); Nucleated Red Blood Cells % 0.1 % (0-0); Platelets 206 thou/uL (152-406); RBC Red Blood Cell Count 3.58 M/uL (3.86-4.86); Red Cell Distribution Width 18.2 % (12.1-15.2)
[2023-12-18 08:37] LABS: Anion Gap 4.6 mEq/L (5.0-15.0); Potassium 3.6 mEq/L (3.5-5.1); Troponin High Sensitivity 3.2 pg/mL (<58.9)
[2023-12-18 09:23] LABS: Blood Morphology Comment NOTED (NOT SEEN); Hypochromasia 2+; Microcytosis 2+; Ovalocytes 1+; Platelet Estimate ADEQ; White Blood Cell Scan OK (OK)
--- NOTE | 2023-12-18 10:34 | EDPHYS ---
Physician Documentation [facility] Name: Tomasa Dahl Age: 43 yrs Sex: Female : 1980 Arrival Date: 12/18/2023 Time: 07:20 Bed 6 Private MD: ED Physician Tavo Vera HPI: 12/17 07:36 This 43 yrs old Female presents to ER via Ambulatory with complaints of Chest ec2 Pain. 07:36 Patient arrives today for evaluation of chest pain. Patient reports middle chest pain ec2 ongoing since earlier this morning. Patient reports no specific alleviating or exacerbating factors. Reports no history of cardiac disease. Reports history of anemia, recent iron infusion yesterday. Patient reports no lower extremity edema. Denies any chest injury.. Historical: - Allergies: 07:27 No Known Drug Allergies; ll1 - PMHx: 07:27 Anemia; Migraine; ll1 - Immunization history:: Adult Immunizations up to date. - Infectious Disease History:: Denies. - Social history:: Smoking status: Patient denies any tobacco usage or history of. ROS: 07:36 Constitutional: as per hpi ec2 Exam: 07:36 Constitutional: GEN: NAD Head: atraumatic Eyes: EOMI Ears: External ears are ec2 normal. CV: regular rate LUNGS: no respiratory distress ABD: non-distended SKIN: no evidence of rashes MSK: no evidence of trauma, reproducible chest wall TTP, no deformities or crepitus appreciated. NEURO: moves all extremities equally Vital Signs: 07:29 BP 123 / 75; Pulse 58; Resp 16; Temp 97.5; Pulse Ox 100% on R/A; Weight 63.96 kg; ll1 Height 5 ft. 4 in. ; Pain 6/10; 08:23 BP 116 / 67; Pulse 59; Resp 16 S; Pulse Ox 97% on R/A; kc6 09:11 BP 112 / 70; Pulse 53; Resp 15; Pulse Ox 99% ; ko1 09:39 BP 123 / 72; Pulse 51; Resp 15 S; Pulse Ox 99% on R/A; kc6 10:10 BP 115 / 63; Pulse 60; Resp 15; Pulse Ox 98% ; ko1 10:44 BP 125 / 73; Pulse 62; Resp 17; Pulse Ox 99% ; ko1 07:29 Body Mass Index 24.20 (63.96 kg, 162.56 cm) ll1 07:29 Pain Scale: Adult ll1 MDM: 07:31 Patient medically screened. ec2 07:36 Data reviewed: vital signs. ED course: Patient arrives today for evaluation of chest ec2 pain. Examination remarkable for well-appearing nontoxic individual is otherwise in no acute distress with a reassuring examination. Will obtain lab work, chest x-ray. EKG independently reviewed and interpreted by me, shows normal sinus rhythm, rate 58, no acute ST segment elevations, nonconcerning intervals. Evaluating for ACS, doubt PE or dissection, additionally considering costochondritis.. 08:32 ED course: CBC with notable anemia with hemoglobin of 7.7, comparable to previous ec2 anemia when viewed on external paperwork, consistent with patient's iron deficiency anemia. 08:54 ED course: Metabolic profile is reassuring, troponin within normal ranges. . ec2 10:32 ED course: Chest x-ray independently reviewed and interpreted by me, shows no acute ec2 intrathoracic process. Suspect costochondritis causing patient's symptoms. Will discharge home, instructed in xalw-oid-tsbpxyk medications. Return precautions given. . 12/17 07:38 Order name: Basic Metabolic Panel; Complete Time: 08:54 ec2 12/17 07:38 Order name: CBC with Diff; Complete Time: 09:25 ec2 12/17 07:38 Order name: Troponin HS; Complete Time: 08:54 ec2 12/17 09:24 Order name: CBC Smear Scan; Complete Time: 09:25 EDMS 12/17 07:38 Order name: XRAY Chest (1 view) ec2 12/17 07:38 Order name: Cardiac monitoring; Complete Time: 07:46 ec2 12/17 07:38 Order name: EKG - Nurse/Tech; Complete Time: 07:46 ec2 12/17 07:38 Order name: IV Saline Lock; Complete Time: 07:46 ec2 12/17 07:38 Order name: Labs collected and sent; Complete Time: 07:46 ec2 12/17 07:38 Order name: O2 Per Protocol; Complete Time: 07:46 ec2 12/17 07:38 Order name: O2 Sat Monitoring; Complete Time: 07:46 ec2 Administered Medications: 07:51 Drug: Ketorolac IVP 15 mg IVP once Route: IVP; Site: right antecubital; kc6 08:39 Follow up: Response: No adverse reaction; Pain is decreased kc6 Disposition Summary: 12/18/23 10:34 Discharge Ordered Notes: Location: Home ec2 Condition: Stable ec2 Diagnosis - Chest pain, unspecified ec2 Followup: ec2 - With: Private Physician - When: - Reason: Re-evaluation by your physician Discharge Instructions: - Discharge Summary Sheet ec2 - Costochondritis, Nfju-kw-Uvnf ec2 Forms: - Medication Reconciliation Form ec2 - Thank You Letter ec2 - Antibiotic Education ec2 - Prescription Opioid Use ec2 - Patient Portal Instructions ec2 - Leadership Thank You Letter ec2 Signatures: Dispatcher [employer] EDJocelyne Felipe RN RN ll1 Ruth Orlando RN RN kc6 Yareli Keller RN RN ko1 Tavo Vera MD MD ec2 Corrections: (The following items were deleted from the chart) 07:39 07:39 BASIC METABOLIC PANEL+C.LAB.BRZ ordered. EDMS EDMS 07:39 07:39 CBC+H.LAB.BRZ ordered. EDMS EDMS 07:39 07:39 Troponin High Sensitivity+C.LAB.BRZ ordered. EDMS EDMS 07:39 07:39 Chest Single View+RAD.RAD.BRZ ordered. EDMS EDMS 10:32 10:24 Chest Single View+RAD.RAD.BRZ ordered. EDMS EDMS
--- NOTE | 2023-12-18 10:34 | ER ---
Nurse's Notes [facility] Name: Tomasa Dahl Age: 43 yrs Sex: Female : 1980 Arrival Date: 12/18/2023 Time: 07:20 Bed 6 Private MD: Diagnosis: Chest pain, unspecified Presentation: 12/17 07:27 Chief complaint: Patient states: Mid center CP/upper abdominal pain since 629. Some ll1 nausea and chronic SOB. 07:29 Coronavirus screen: Client denies travel out of the [place] in the last 14 days. cough ll1 unrelated to allergies, difficulty breathing, fatigue, nausea, Client presents with at least one sign or symptom that may indicate coronavirus-19. Standard/surgical mask placed on the client. Ebola Screen: Patient denies travel to an Ebola-affected area in the 21 days before illness onset. Initial Sepsis Screen: Does the patient meet any 2 criteria? Does the patient have a suspected source of infection?. Risk Assessment: Do you want to hurt yourself or someone else? Patient reports no desire to harm self or others. Onset of symptoms was December 18, 2023. 07:29 Method Of Arrival: Ambulatory ll1 07:29 Acuity: AMY 3 ll1 Triage Assessment: 07:27 General: Appears uncomfortable, Behavior is calm, cooperative, appropriate for age. ll1 Pain: Complains of pain in chest Pain radiates to abdomen. Cardiovascular: Reports chest pain, nausea. GI: Reports upper abdominal pain, nausea. Historical: - Allergies: 07:27 No Known Drug Allergies; ll1 - PMHx: 07:27 Anemia; Migraine; ll1 - Immunization history:: Adult Immunizations up to date. - Infectious Disease History:: Denies. - Social history:: Smoking status: Patient denies any tobacco usage or history of. Screenin:44 [facility] ED Fall Risk Assessment (Adult) History of falling in the last 3 months, kc6 including since admission No falls in past 3 months (0 pts) Confusion or Disorientation No (0 pts) Intoxicated or Sedated No (0 pts) Impaired Gait No (0 pts) Mobility Assist Device Used No (0 pt) Altered Elimination No (0 pt) Score/Fall Risk Level 0 - 2 = Low Risk. Abuse screen: Denies threats or abuse. Denies injuries from another. Nutritional screening: No deficits noted. Tuberculosis screening: No symptoms or risk factors identified. Assessment: 07:45 General: Appears in no apparent distress. comfortable, well groomed, well developed, kc6 Behavior is calm, cooperative, appropriate for age. Pain: Complains of pain in chest Pain does not radiate. Pain began 1 day ago. Neuro: Level of Consciousness is awake, alert, obeys commands, Oriented to person, place, time, situation, Appropriate for age. Cardiovascular: Reports chest pain, Heart tones S1 S2 present Capillary refill < 3 seconds Rhythm is sinus bradycardia. Respiratory: Airway is patent Trachea midline Respiratory effort is even, unlabored, Respiratory pattern is regular, symmetrical. GI: No signs and/or symptoms were reported involving the gastrointestinal system. : No signs and/or symptoms were reported regarding the genitourinary system. EENT: No signs and/or symptoms were reported regarding the EENT system. Derm: No signs and/or symptoms reported regarding the dermatologic system. Skin is intact, is healthy with good turgor, Skin is pink, warm \T\ dry. Musculoskeletal: No signs and/or symptoms reported regarding the musculoskeletal system. Circulation, motion, and sensation intact. Capillary refill < 3 seconds, Range of motion: intact in all extremities. 08:45 Reassessment: Patient appears in no apparent distress at this time. No changes from kc6 previously documented assessment. Patient and/or family updated on plan of care and expected duration. Pain level reassessed. Patient is alert, oriented x 3, equal unlabored respirations, skin warm/dry/pink. 09:39 Reassessment: Patient appears in no apparent distress at this time. No changes from kc6 previously documented assessment. Patient and/or family updated on plan of care and expected duration. Pain level reassessed. Patient is alert, oriented x 3, equal unlabored respirations, skin warm/dry/pink. 10:36 Reassessment: Patient appears in no apparent distress at this time. No changes from kc6 previously documented assessment. Patient and/or family updated on plan of care and expected duration. Pain level reassessed. Patient is alert, oriented x 3, equal unlabored respirations, skin warm/dry/pink. Vital Signs: 07:29 BP 123 / 75; Pulse 58; Resp 16; Temp 97.5; Pulse Ox 100% on R/A; Weight 63.96 kg; ll1 Height 5 ft. 4 in. ; Pain 6/10; 08:23 BP 116 / 67; Pulse 59; Resp 16 S; Pulse Ox 97% on R/A; kc6 09:11 BP 112 / 70; Pulse 53; Resp 15; Pulse Ox 99% ; ko1 09:39 BP 123 / 72; Pulse 51; Resp 15 S; Pulse Ox 99% on R/A; kc6 10:10 BP 115 / 63; Pulse 60; Resp 15; Pulse Ox 98% ; ko1 10:44 BP 125 / 73; Pulse 62; Resp 17; Pulse Ox 99% ; ko1 07:29 Body Mass Index 24.20 (63.96 kg, 162.56 cm) ll1 07:29 Pain Scale: Adult ll1 ED Course: 07:21 Patient arrived in ED. im 07:27 Ruth Orlando, RN is Primary Nurse. kc6 07:27 Arm band placed on Patient placed in an exam room, on a stretcher. ll1 07:31 Tavo Vera MD is Attending Physician. ec2 07:32 Triage completed. ll1 07:44 Patient has correct armband on for positive identification. Bed in low position. Call kc6 light in reach. Side rails up X 1. Adult w/ patient. Client placed on continuous cardiac and pulse oximetry monitoring. NIBP monitoring applied. court recording monitor on. 07:44 Inserted saline lock: 20 gauge in right antecubital area, using aseptic technique. kc6 Blood collected. O2 via 100% on RA. 07:45 Warm blanket given. kc6 08:11 XRAY Chest (1 view) In Process Unspecified. EDMS 08:23 Door closed. Noise minimized. Lights dimmed. Warm blanket given. kc6 10:44 Provided Education on: na. ko1 10:44 No provider procedures requiring assistance completed. IV discontinued, intact, ko1 bleeding controlled, No redness/swelling at site. Pressure dressing applied. Administered Medications: 07:51 Drug: Ketorolac IVP 15 mg IVP once Route: IVP; Site: right antecubital; kc6 08:39 Follow up: Response: No adverse reaction; Pain is decreased kc6 Medication: 10:44 VIS not applicable for this client. ko1 Outcome: 10:34 Discharge ordered by . ec2 10:44 Discharged to home ambulatory, ko1 10:44 Condition: stable 10:44 Discharge instructions given to patient, Instructed on discharge instructions, follow up and referral plans. Demonstrated understanding of instructions, follow-up care, 10:46 Patient left the ED. ko1 Signatures: Dispatcher [employer] Jocelyne Luong RN RN ll1 Ruth Orlando RN RN kc6 Yareli Keller RN RN ko1 Yamilet Hernandez Edwin, MD MD ec2 Corrections: (The following items were deleted from the chart) 07:32 07:27 Chief complaint: Patient states: Mid center CP/upper abdominal pain since 629 ll1ll1
--- NOTE | 2023-12-18 11:09 | RAD REPORT ---
EXAM DESCRIPTION: Guilherme Single View12/18/2023 10:30 am CLINICAL HISTORY: Chest pain COMPARISON: 2005 FINDINGS: The lungs appear clear of acute infiltrate. The heart is normal size IMPRESSION: No acute abnormalities displayed
[2023-12-18 11:15] VITALS: TEMP 97.5
[2023-12-18 11:59] VITALS: BP 125/73; O2SAT 99
--- NOTE | 2023-12-19 12:38 | EKG ---
Test Date: 2023-12-18 Test Time: 07:34:45 Motor Generator Set Operator: CRUZITO MEASUREMENT RESULTS: Intervals: Rate: 58 OH: 146 QRSD: 86 QT: 428 QTc: 420 [place]: P: 52 OH: 146 QRS: 80 T: -8 INTERPRETIVE STATEMENTS: Sinus bradycardia Nonspecific ST abnormality Abnormal QRS-T angle, consider primary T wave abnormality Abnormal ECG No previous ECG available for comparison Electronically Signed On 12-19-23 12:34:12 CDT by Bradford Joseph
== END 2023-12-18 10:46 | disposition home or self-care (01) ==
LOC: ER 07:20
DX: R07.9 Chest pain, unspecified (principal)
CPT/HCPCS: 36415; 71045; 80048; 84484; 85025; 93005

== ENCOUNTER 2023-12-18 15:16 | Emergency (ER) | payer OTHER ==
--- OUTSIDE RECORDS SUMMARY | 2023-12-18 15:19 | XMS REPORT | Continuity of Care Document ---
Author Name Unknown Address [address] [facility] [address] [place] [address] [facility] Address [address] [facility] [address] [place] [address] Care Team Providers Care Audio Production Instructor Name Role Phone BERTIN ZAVALA Primary Care Physician Unavailab AKUA Cr Attending Clinician Unavail able Tiffanie Abreu CNM Attending Clinician [phone] AMANDA JENNINGS Attending Clinician Unavail able Amanda Jennings MD Attending Clinician [phone] TIFFANIE ABREU Attending Clinician Unavaila sammi GC_GCBZW_Kadiyala_S Attending Clinician Unavaila Akua Grant Attending Clinician + Doctor Unassigned, [place] Attending Clinician U navailBERTIN Allison Attending Clinician Unavailable Bertin Sanders Attending Clinician [phone] Visit, [facility] Nurse Attending Clinician Unava ildenice Lab, Kavon - Db Attending Clinician Unavailable Qiana ALANIZ Attending Clinician Unavailable Qiana Cruz Attending Clinician [phone] DOUGLAS SHAVER Attending Clinician Unavailable Pgy3 Attending Clinician Unavailable Douglas Shaver MD Attending Clinician [phone] RASHEED ROMERO Attending Clinician Unavailable TIFFANIE ABREU [...] intrauteri ne contracept radha device Disease Active 811 00:00: 00 [facility] Anemia, unspecifie d Anemia, unspecifie d Disease Active 8-11 00:00: 00 [facility] Need for hepatitis C screening test Need for hepatitis C screening test Disease Active 2-03 00:00: 00 [facility] Acute pain of right knee Acute pain of right knee Disease Active 1-06 00:00: 00 [facility] Metatarsal jamir of left foot Metatarsal jamir of left foot Disease Active 1- 00:00: 00 [facility] Left foot pain Left foot pain Disease Active 1-06 00:00: 00 [facility] Iron deficiency anemia due to chronic blood loss Iron deficiency anemia due to chronic blood loss Disease Active 1-06 00:00: 00 [facility] Need for vaccinatio n Need for vaccinatio n Disease Active 1-06 00:00: 00 [facility] Cervical Papanicola ou smear negative within last 12 months Cervical Papanicola ou smear negative within last 12 months Disease Active 8-16 00:00: 00 Overview: Formattin g of this note might be different from the original. 04/2020 NIL pap neg HPV See scanned chart [facility] Well woman exam Well woman exam Disease Active 9- 00:00: 00 Overview: Formattin g of this note might be different from the original. No pap records received [facility] Excessive or frequent menstruati on Excessive or frequent menstruati on Disease Active 2-19 00:00: 00 [facility] Other general counseling and advice for contracept radha management Other general counseling and advice for contracept radha management Disease Active 06-09 00:00: 00 Overview: Formattin g of this note might be different from the original. ICD10 Diagnosis Term Patient Safety Sitter Utility [facility] Allergies, Adverse Reactions, Alerts Allergy Name Allergy Type Status Severity Reaction(s) Onset Date Inactive Date Treating Clinician Comments Source NO KNOWN ALLERGIE S Drug Class Active [facility] Social History Social Habit Start Date Stop Date Quantity Comments Source Gender identity [facility] intake 2023-10-02 00:00:00 2023-10-02 00:00:00 0 /d [facility] History of Social function 2023-04-20 00:00:00 2023-04-20 00:00:00 [facility] Exposure to SARS-CoV-2 (event) 2022-12-15 00:00:00 2022-12-25 09:03:00 Not sure [facility] Tobacco use and exposure 2022-04-20 00:00:00 2022-04-20 00:00:00 Smokeless tobacco non-user [facility] Sex Assigned At 1980 00:00:00 1980 00:00:00 [facility] Smoking Status Start Date Stop Date Source Never smoked tobacco [facility] Medications Ordered Medication Name Filled Medication Name Start Date Stop Date Current Medication? Ordering Clinician Indication Dosage Frequency Signature (SIG) Comments Components Source ferrous sulfate 325 mg (65 mg iron) tablet 04-22 12:00: 42 04-22 00:00 :00 No [id number] 325mg Take 325 mg by mouth daily. [facility] nystatin 100,000 unit/gram cream 04-20 00:00: 00 Yes [id number] Apply to area(s) 2 (two) times daily. [facility] ibuprofen 600 mg tablet 1-06 00:00: 00 09-30 05:59 :00 No [id number] 600mg Take 1 tablet by mouth every 6 (six) hours as needed for Temp > 38.5 C for up to 14 days. [facility] benzonatate 200 mg capsule 2021-09 2 00:00: 00 04-20 00:00 :00 No [id number] 200mg Take 1 capsule by mouth 3 (three) times daily as needed for Cough for up to 20 doses. [facility] ibuprofen (IBU) tablet 800 mg 05-01 21:00: 00 05-01 20:36 :00 No [id number] 800mg [facility] levonorgest reL (LILETTA) IUD 1 Device 05-01 20:30: 00 05-01 20:36 :00 No [id number] 1{devic e} [facility] ferrous sulfate 325 mg (65 mg iron) tablet 04-20 09:16: 13 Yes [id number] 325mg Take 325 mg by mouth daily. [facility] CYANOCOBALA MIN, VITAMIN B-12, (VITAMIN B-12 ORAL) 04-20 09:16: 13 Yes Take by mouth. [facility] Immunizations Ordered Immunization Name Filled Immunization Name Date Status Comments Source HPV9 2022-10-25 00:00:00 Completed [facility] HPV9 2022-10-25 00:00:00 Completed [facility] HPV9 2022-10-25 00:00:00 Completed [facility] HPV9 2022-10-25 00:00:00 Completed [facility] HPV9 2022-10-25 00:00:00 Completed [facility] HPV9 2022-10-25 00:00:00 Completed [facility] HPV9 2022-10-25 00:00:00 Completed [facility] HPV9 2022-10-25 00:00:00 Completed [facility] Influenza Virus Vaccine Quad IM, Preserv and ABX Free 6 MO-64 YRS 2022-09-15 00:00:00 Completed [facility] Influenza Virus Vaccine Quad IM, Preserv and ABX Free 6 MO-64 YRS 2022-09-15 00:00:00 Completed [facility] Influenza Virus Vaccine Quad IM, Preserv and ABX Free 6 MO-64 YRS 2022-09-15 00:00:00 Completed [facility] Influenza Virus Vaccine Quad IM, Preserv and ABX Free 6 MO-64 YRS 2022-09-15 00:00:00 Completed [facility] Influenza Virus Vaccine Quad IM, Preserv and ABX Free 6 MO-64 YRS 2022-09-15 00:00:00 Completed [facility] Influenza Virus Vaccine Quad IM, Preserv and ABX Free 6 MO-64 YRS 2022-09-15 00:00:00 Completed [facility] Influenza Virus Vaccine Quad IM, Preserv and ABX Free 6 MO-64 YRS 2022-09-15 00:00:00 Completed [facility] Influenza Virus Vaccine Quad IM, Preserv and ABX Free 6 MO-64 YRS 2022-09-15 00:00:00 Completed [facility] Influenza Virus Vaccine Quad IM, Preserv and ABX Free 6 MO-64 YRS 2022-09-15 00:00:00 Completed [facility] Influenza Virus Vaccine Quad IM, Preserv and ABX Free 6 MO-64 YRS 2022-09-15 00:00:00 Completed [facility] Influenza Virus Vaccine Quad IM, Preserv and ABX Free 6 MO-64 YRS 2022-09-15 00:00:00 Completed [facility] Influenza Virus Vaccine Quad IM, Preserv and ABX Free 6 MO-64 YRS 2022-09-15 00:00:00 Completed [facility] Influenza Virus Vaccine Quad IM, Preserv and ABX Free 6 MO-64 YRS 2022-09-15 00:00:00 Completed [facility] Influenza Virus Vaccine Quad IM, Preserv and ABX Free 6 MO-64 YRS 2022-09-15 00:00:00 Completed [facility] Influenza Virus Vaccine Quad IM, Preserv and ABX Free 6 MO-64 YRS 2022-09-15 00:00:00 Completed [facility] HPV9 2022-05-22 00:00:00 Completed [facility] HPV9 2022-05-22 00:00:00 Completed [facility] HPV9 2022-05-22 00:00:00 Completed [facility] HPV9 2022-05-22 00:00:00 Completed [facility] HPV9 2022-05-22 00:00:00 Completed [facility] HPV9 2022-05-22 00:00:00 Completed [facility] HPV9 2022-05-22 00:00:00 Completed [facility] HPV9 2022-05-22 00:00:00 Completed [facility] HPV9 2022-05-22 00:00:00 Completed [facility] HPV9 2022-05-22 00:00:00 Completed [facility] HPV9 2022-05-22 00:00:00 Completed [facility] HPV9 2022-05-22 00:00:00 Completed [facility] HPV9 2022-05-22 00:00:00 Completed [facility] HPV9 2022-05-22 00:00:00 Completed [facility] HPV9 2022-05-22 00:00:00 Completed [facility] HPV9 2022-05-22 00:00:00 Completed [facility] HPV9 2022-05-22 00:00:00 Completed [facility] HPV9 2022-05-22 00:00:00 Completed [facility] HPV9 2022-05-22 00:00:00 Completed [facility] HPV9 2022-04-20 00:00:00 Completed [facility] HPV9 2022-04-20 00:00:00 Completed [facility] HPV9 2022-04-20 00:00:00 Completed [facility] HPV9 2022-04-20 00:00:00 Completed [facility] HPV9 2022-04-20 00:00:00 Completed [facility] HPV9 2022-04-20 00:00:00 Completed [facility] HPV9 2022-04-20 00:00:00 Completed [facility] HPV9 2022-04-20 00:00:00 Completed [facility] HPV9 2022-04-20 00:00:00 Completed [facility] HPV9 2022-04-20 00:00:00 Completed [facility] HPV9 2022-04-20 00:00:00 Completed [facility] HPV9 2022-04-20 00:00:00 Completed [facility] HPV9 2022-04-20 00:00:00 Completed [facility] HPV9 2022-04-20 00:00:00 Completed [facility] HPV9 2022-04-20 00:00:00 Completed [facility] HPV9 2022-04-20 00:00:00 Completed [facility] HPV9 2022-04-20 00:00:00 Completed [facility] HPV9 2022-04-20 00:00:00 Completed [facility] HPV9 2022-04-20 00:00:00 Completed [facility] HPV9 2022-04-20 00:00:00 Completed [facility] Td 2016-08-06 00:00:00 Completed [facility] Td 2016-08-06 00:00:00 Completed [facility] Td 2016-08-06 00:00:00 Completed [facility] TD, NOS 2016-08-06 00:00:00 Completed [facility] TD, NOS 2016-08-06 00:00:00 Completed [facility] TD, NOS 2016-08-06 00:00:00 Completed [facility] TD, NOS 2016-08-06 00:00:00 Completed [facility] TD, NOS 2016-08-06 00:00:00 Completed [facility] TD, NOS 2016-08-06 00:00:00 Completed [facility] TD, NOS 2016-08-06 00:00:00 Completed [facility] TD, NOS 2016-08-06 00:00:00 Completed [facility] TD, NOS 2016-08-06 00:00:00 Completed [facility] TD, NOS 2016-08-06 00:00:00 Completed [facility] TD, NOS 2016-08-06 00:00:00 Completed [facility] TD, NOS 2016-08-06 00:00:00 Completed [facility] TD, NOS 2016-08-06 00:00:00 Completed [facility] TD, NOS 2016-08-06 00:00:00 Completed [facility] TD, NOS 2016-08-06 00:00:00 Completed [facility] TD, NOS 2016-08-06 00:00:00 Completed [facility] TD, NOS 2016-08-06 00:00:00 Completed [facility] Td 2009-09-10 00:00:00 Completed [facility] Td 2009-09-10 00:00:00 Completed [facility] Td 2009-09-10 00:00:00 Completed [facility] TD, NOS 2009-09-10 00:00:00 Completed [facility] TD, NOS 2009-09-10 00:00:00 Completed [facility] TD, NOS 2009-09-10 00:00:00 Completed [facility] TD, NOS 2009-09-10 00:00:00 Completed [facility] TD, NOS 2009-09-10 00:00:00 Completed [facility] TD, NOS 2009-09-10 00:00:00 Completed [facility] TD, NOS 2009-09-10 00:00:00 Completed [facility] TD, NOS 2009-09-10 00:00:00 Completed [facility] TD, NOS 2009-09-10 00:00:00 Completed [facility] TD, NOS 2009-09-10 00:00:00 Completed [facility] TD, NOS 2009-09-10 00:00:00 Completed [facility] TD, NOS 2009-09-10 00:00:00 Completed [facility] TD, NOS 2009-09-10 00:00:00 Completed [facility] TD, NOS 2009-09-10 00:00:00 Completed [facility] TD, NOS 2009-09-10 00:00:00 Completed [facility] TD, NOS 2009-09-10 00:00:00 Completed [facility] TD, NOS 2009-09-10 00:00:00 Completed [facility] TD, NOS Unknown Completed [facility] TD, NOS Unknown Completed [facility] HPV9 Unknown Completed [facility] HPV9 Unknown Completed [facility] Influenza Virus Vaccine Quad IM, Preserv and ABX Free 6 MO-64 YRS (FLUCELVAX) Unknown Completed [facility] TD, NOS Unknown Completed [facility] TD, NOS Unknown Completed [facility] HPV9 Unknown Completed [facility] HPV9 Unknown Completed [facility] Influenza Virus Vaccine Quad IM, Preserv and ABX Free 6 MO-64 YRS (FLUCELVAX) Unknown Completed [facility] HPV9 Unknown Completed [facility] TD, NOS Unknown Completed [facility] TD, NOS Unknown Completed [facility] HPV9 Unknown Completed [facility] HPV9 Unknown Completed [facility] Influenza Virus Vaccine Quad IM, Preserv and ABX Free 6 MO-64 YRS (FLUCELVAX) Unknown Completed [facility] HPV9 Unknown Completed [facility] TD, NOS Unknown Completed [facility] TD, NOS Unknown Completed [facility] HPV9 Unknown Completed [facility] HPV9 Unknown Completed [facility] Influenza Virus Vaccine Quad IM, Preserv and ABX Free 6 MO-64 YRS (FLUCELVAX) Unknown Completed [facility] HPV9 Unknown Completed [facility] Vital Signs Vital Name Observation Time Observation Value Comments S ource Systolic blood pressure 2023-04-20 18:39:00 123 mm[Hg] [facility] Diastolic blood pressure 2023-04-20 18:39:00 66 mm[Hg] [facility] Heart rate 2023-04-20 18:39:00 78 /min [facility] Body temperature 2023-04-20 18:39:00 36.83 Michelle [facility] Respiratory rate 2023-04-20 18:39:00 16 /min [facility] Body height 2023-04-20 18:39:00 162.6 cm [facility] Body weight 2023-04-20 18:39:00 65.499 kg [facility] BMI 2023-04-20 18:39:00 24.79 kg/m2 [facility] Body temperature 2022-10-25 14:10:00 36.33 Michelle [facility] Systolic blood pressure 2022-10-13 20:00:00 119 mm[Hg] [facility] Diastolic blood pressure 2022-10-13 20:00:00 62 mm[Hg] [facility] Heart rate 2022-10-13 20:00:00 70 /min [facility] Body temperature 2022-10-13 20:00:00 36.83 Michelle [facility] Body height 2022-10-13 20:00:00 162.6 cm [facility] Body weight 2022-10-13 20:00:00 64.864 kg [facility] BMI 2022-10-13 20:00:00 24.55 kg/m2 [facility] Oxygen saturation in Arterial blood by Pulse oximetry 2022-10-13 20:00:00 100 /min [facility] Systolic blood pressure 2022-09-15 14:48:00 107 mm[Hg] [facility] Diastolic blood pressure 2022-09-15 14:48:00 64 mm[Hg] [facility] Heart rate 2022-09-15 14:48:00 69 /min [facility] Body temperature 2022-09-15 14:48:00 36.72 Michelle [facility] Body height 2022-09-15 14:48:00 162.6 cm [facility] Body weight 2022-09-15 14:48:00 64.411 kg [facility] BMI 2022-09-15 14:48:00 24.37 kg/m2 [facility] Oxygen saturation in Arterial blood by Pulse oximetry 2022-09-15 14:48:00 100 /min [facility] Systolic blood pressure 2022-08-31 19:00:00 115 mm[Hg] [facility] Diastolic blood pressure 2022-08-31 19:00:00 66 mm[Hg] [facility] Heart rate 2022-08-31 19:00:00 70 /min [facility] Respiratory rate 2022-08-31 19:00:00 16 /min [facility] Oxygen saturation in Arterial blood by Pulse oximetry 2022-08-31 19:00:00 100 /min [facility] Body temperature 2022-08-31 16:52:00 36.5 Michelle [facility] Body height 2022-08-31 16:52:00 162.6 cm [facility] Body weight 2022-08-31 16:52:00 64.411 kg [facility] BMI 2022-08-31 16:52:00 24.37 kg/m2 [facility] Systolic blood pressure 2022-05-22 14:03:00 119 mm[Hg] [facility] Diastolic blood pressure 2022-05-22 14:03:00 68 mm[Hg] [facility] Heart rate 2022-05-22 14:03:00 63 /min [facility] Body temperature 2022-05-22 14:03:00 36.28 Michelle [facility] Respiratory rate 2022-05-22 14:03:00 18 /min [facility] Body height 2022-05-22 14:03:00 162.6 cm [facility] Body weight 2022-05-22 14:03:00 64.774 kg [facility] BMI 2022-05-22 14:03:00 24.51 kg/m2 [facility] Systolic blood pressure 2022-05-01 18:01:00 119 mm[Hg] [facility] Diastolic blood pressure 2022-05-01 18:01:00 64 mm[Hg] [facility] Heart rate 2022-05-01 18:01:00 65 /min [facility] Body temperature 2022-05-01 18:01:00 35.44 Michelle [facility] Body height 2022-05-01 18:01:00 162.6 cm [facility] Body weight 2022-05-01 18:01:00 62.914 kg [facility] BMI 2022-05-01 18:01:00 23.81 kg/m2 [facility] Procedures Procedure Date / Time Performed Performing Clinician Source BI SELF-REQUESTED SCREENING TOMOSYNTHESIS BILATERAL 2023-12-07 20:58:15 Tiffanie Abreu [facility] CBC WITH DIFF 2023-04-20 19:19:00 Tiffanie Abreu [facility] ASSIGNMENT OF BENEFITS 2023-04-20 18:25:28 Docto r Unassigned, [place] [facility] PATIENT CORRESPONDENCE (LETTERS, USPS DOCUMENTATION) 2023-01-26 05:01:00 Doctor Unassigned, [place] [facility] CONSENT/REFUSAL FOR DIAGNOSIS AND TREATMENT 2022-12-06 15:52:20 Doctor Unassigned, [place] [facility] ASSIGNMENT OF BENEFITS 2022-12-06 15:50:30 Docto r Unassigned, [place] [facility] GARDASIL 9 (HPV 9V) VACCINE 2022-10-25 14:12:18 Akua Frye [facility] POCT TEST 2022-09-15 15:32:[address] [facility] FLU VACC (), 6 MO-64 YRS, .5ML, IM, QUAD (FLUCELVAX) 2022-09-15 15:25:14 Bertin Zavala [facility] RAPID INFLUENZA A/B 2022-08-31 18:03:00 Qiana Alaniz [facility] CONSENT/REFUSAL FOR DIAGNOSIS AND TREATMENT 2022-08-31 16:46:34 Doctor Unassigned, [place] [facility] GARDASIL 9 (HPV 9V) VACCINE 2022-05-22 13:54:09 Akua Frye [facility] PAP SMEAR-LIQUID BASED-CP 2022-05-01 20:15:00 Jennifer Gutierres [facility] Encounters Start Date/Time End Date/Time Encounter Type Admission Type Attending [facility] Care Facility Care Department Encounter ID Source 2023-12-10 00:00:00 2023-12-10 00:00:00 Telephone Tiffanie Abreu [facility] FINISHING [employer] & [facility] [id number] 350.1.13.10 [id number] [id number] [facility] 2023-12-10 00:00:00 2023-12-10 00:00:00 Case Management Tiffanie Abreu [facility]ISH[facility] 1..840.114 350.1.13.10 4.2.7.2.686 [id number] [facility] 2023-12-07 15:39:02 2023-12-07 23:59:00 Outpatient Edgar AMANDA JENNINGS [facility] [id number] [facility] 2023-12-07 15:39:02 2023-12-07 23:59:00 Hospital Encounter Amanda Jennings [facility] 1.840.114 350.1.13.10 4.2.7.2.686 [id number] [facility] 2023-10-15 00:00:00 2023-10-15 00:00:00 Outpatient TIFFANIE REED [facility] [id number] [facility] 2023-07-10 00:00:00 2023-07-10 00:00:00 Outpatient GC_GCBZW_Ka diyala_S PRIV PRIV [id number] [facility] 2023-07-06 00:00:00 2023-07-06 00:00:00 Outpatient GC_GCBZW_Ka diyala_S PRIV PRIV [id number] [facility] 2023-04-23 00:00:00 2023-04-23 00:00:00 Case Management Tiffanie Abreu [facility] FINISHING [employer] [facility] .840.114 350.1.13.10 4.2.7.2.686 [id number] [facility] 2023-04-23 00:00:00 2023-04-23 00:00:00 Telephone Tiffanie Abreu [facility] 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 CH[facility] 1..840.114 350.1.13.10 4.2.7.2.686 [id number] [facility] 2023-04-20 13:30:00 2023-04-20 14:20:04 Outpatient R TIFFANIE ABREU [facility] [id number] [facility] 2023-04-20 13:30:00 2023-04-20 14:20:04 Office Visit Tiffanie Abreu Damilola C [facility] FINISH[employer] [facility] 1.840.114 350.1.13.10 4.2.7.2.686 [id number] [facility] 2023-04-20 00:00:00 2023-04-20 00:00:00 Orders Only Doctor Unassigned, [place] [facility] 1.840.114 350.1.13.10 4.2.7.2.686 [id number] [facility] 2023-01-26 14:45:00 2023-01-26 14:45:00 Outpatient R AKUA FRYE [facility] [id number] [facility] 2023-01-26 00:00:00 2023-01-26 00:00:00 Orders Only Doctor Unassigned, [place] [facility] 1.840.114 350.1.13.10 4.2.7.2.686 [id number] [facility] 2022-12-25 09:30:00 2022-12-25 09:30:00 Outpatient R BERTIN ZAVAAL [facility] [id number] [facility] 2022-12-13 09:15:00 2022-12-13 09:15:00 Outpatient R AKUA FRYE [facility] [id number] [facility] 2022-12-06 10:50:56 2022-12-06 23:59:00 Outpatient R BERTIN ZAVALA [facility] [id number] [facility] 2022-12-06 10:50:56 2022-12-06 23:59:00 Hospital Encounter Bertin Zavala [facility] 1.840.114 350.1.13.10 4.2.7.2.686 [id number] [facility] 2022-10-25 08:00:00 2022-10-25 08:00:14 Outpatient AKUA KELLEY [facility] [id number] [facility] 2022-10-25 08:00:00 2022-10-25 08:00:14 Nurse Visit Visit, Zeferinochp Akua Krishanmurthy [facility] FINISHING [employer] [facility] 1.840.114 350.1.13.10 4.2.7.2.686 [id number] [facility] 2022-10-23 09:00:00 2022-10-23 09:00:00 Outpatient R AKUA FRYE [facility] [id number] [facility] 2022-10-13 14:30:00 2022-10-13 14:45:00 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, Bertin Parker [facility] 1..840.114 350.1.13.10 4.2.7.2.686 [id number] [facility] 2022-10-13 14:00:00 2022-10-13 14:31:16 Outpatient R BERTIN ZAVALA [facility] [id number] [facility] 2022-10-13 14:00:00 2022-10-13 14:31:16 Office Visit Sally Bertin [facility] 1..840.114 350.1.13.10 4.2.7.2.686 [id number] [facility] 2022-09-18 00:00:00 2022-09-18 00:00:00 Patient Secure Msg Doctor Unassigned, [place] [facility] [id number] 350.1.13.10 4.2.7.2.686 [id number] [facility] 2022-09-15 10:30:03 2022-09-15 11:14:00 Outpatient BERTIN ENGLAND [facility] [id number] [facility] 2022-09-15 09:30:00 2022-09-15 09:45:00 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, Kavon - [place] [facility] EV[facility] 1.2840.114 350.1.13.10 4.2.7.2.686 [id number] [facility] 2022-09-15 09:00:00 2022-09-15 09:28:09 [facility] 1.840.114 350.1.13.10 4.2.7.2.686 [id number] [facility] 2022-09-15 00:00:00 2022-09-15 00:00:00 [facility]phone [facility] 1.284.114 350.1.13.10 4.2.7.2.686 [id number] [facility] 2022-09-06 15:00:00 2022-09-06 15:00:00 Outpatient BERTIN ENGLAND [facility] [id number] [facility] 2022-08-31 10:53:00 2022-08-31 13:07:00 Emergency X Qiana ALANIZ [facility] ERT [id number] [facility] 2022-08-31 10:53:00 2022-08-31 13:07:00 Emergency Qiana Alaniz [facility] 1.840.114 350.1.13.10 4.2.7.2.686 [id number] [facility] 2022-05-23 00:00:00 2022-05-23 00:00:00 Telephone Akua Frye [facility] 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 1.84.114 350.1.13.10 4.2.7.2.686 [id number] [facility] 2022-05-22 08:30:00 2022-05-22 09:05:30 Outpatient R AKUA FRYE [facility] [id number] [facility] 2022-05-22 08:30:00 2022-05-22 09:05:30 [facility] 1.84.114 350.1.13.10 4.2.7.2.686 [id number] [facility] 2022-05-02 00:00:00 2022-05-02 00:00:00 Orders Only Doctor Unassigned, [place] [facility] 1..114 350.1.13.10 4.2.7.2.686 [id number] [facility] 2022-05-01 13:30:00 2022-05-01 15:10:21 Outpatient R DOUGLAS SHAVER [facility] [id number] [facility] 2022-05-01 13:30:00 2022-05-01 15:10:21 Outpatient R DOUGLAS SHAVER [facility] [id number] [facility] 2022-05-01 13:30:00 2022-05-01 15:10:21 Office Visit Pgy3 Douglas Shaver [facility] 1..114 350.1.13.10 4.2.7.2.686 [id number] [facility] 2022-04-20 09:00:00 2022-04-20 10:08:33 Office Visit Akua Frye [facility] FINISHING FRAME RUNNER [facility] 1.2.840.114 350.1.13.10 4.2.7.2.686 [id number] [facility] 2022-04-20 09:00:00 2022-04-20 10:08:33 Outpatient R AKUA FRYE [facility] [id number] [facility] 2022-04-20 00:00:00 2022-04-20 00:00:00 Orders Only Doctor Unassigned, [place] [facility] 1.2.840.114 350.1.13.10 4.2.7.2.686 [id number] [facility] 2022-03-21 14:30:00 2022-03-21 14:30:00 Outpatient R RASHEED ROMERO [facility] [id number] [facility] Results Test Description Test Time Test [...] 0 - Incomplete: Needs Additional [facility] 15:32:00* Test Item Value Reference Range Interpretation Comme nts POCT PREG (test code = 1605) Negative On board controls acceptable with C Line (test code = 3574) Yes POCT PREG LOT # (test code = 3575) POCT PREG TEST DATE ( test code = 3576) Lab Interpretation (test cod e = 79448-0) Normal [facility] Notes Date/Time Note Provider Source 2023-12-10 11:10:26 cDSOOtuDWCYZY9BUwXRS foddWIu2/5pRaBFSV2AJoR a8abLZ1BI8xh0awKvVBliw1657-87-27D10:10:26F ormatting of this note might be different [...] understanding. MAYLIN CHRISTIANSEN RN 12/10/2023 11:13 AM 04836-9Umdzkchbg encounter DrubZV2880-30-31K47:14:09Telephone encounter NoteTXT1.2.840.627464.1.13.104.2.7.2.68164 9|[id number] for patient klxh12157-2HrqjRVOCFEMNEEOCypzbfxqu C-CDA narrative text[address] Zp[id number] RXBHEICZJQJTUMZC7083-09-02T32:14:091.2.840 .122509.1.72.3.15|1.2.840.592502.1.13.104. 2.7.2.727879_[id number] [facility] 2023-12-10 10:40:59 z3aeG1/8R9jw99iMQimS lnp3FyyyP9XVsTBn5GAtlr 129+75iFzb3DhwGPO7YsJJ3490-02-69C54:40:59F ormatting of this note might be different from the original.Patient self requested screening mammogram.However, it showed left breast 9 mm focal asymmetry in the outer central region, 4 cm from the nipple. She needs diagnostic mammogram and breast ultrasound which I ordered. She needs BCCS screening prior to imaging if she still has HTW. 27023-6Ypueswxro encounter QuqiNV1763-89-43Z20:44:02Telephone encounter NoteTXT1.2.840.332716.1.13.104.2.7.2.15175 9|[id number] for patient xskt55952-6DpfgTXNAAFDGUAKMlkrmtwyr C-CDA narrative [address] Eb[id number] TUVHQMKUYESPPALW1356-75-09Y26:44:021.2.840 .048391.1.72.3.15|1.2.840.854116.1.13.104. 2.7.2.727879_[id number] [facility] 2023-04-23 11:16:18 oKre+5UwrQzbRfaA8lXI JokFJ6kVvjAGMx6WYnlhY3 Fp2wCKYvCyymE6Aas94imY1741-93-39L63:16:18F ormatting of this note might be different from the original.Patient informed of results and recommendations, verbalized understanding. 11609-9Wofezqmtd encounter JrmwEP6366-41-71Z92:16:53Telephone encounter NoteTXT1.2.840.932686.1.13.104.2.7.2.02054 9|[id number] for patient zsmd59172-6QqbsNFNERWILNJ[address] [id number] YMERVUDQKUATFJAD5169-28-42Q53:16:531.2.840 .176395.1.72.3.15|1.2.840.056467.1.13.104. 2.7.2.727879_[id number] [facility] 2023-04-23 10:11:48 vpWss52KBJE8crjrMgr8 ittkvByEAl2XpEZhqaq1Vn RXTswvDqV8Lt/JVZfpZKVg8972-69-07W97:11:48F ormatting of this note might be different from the original.Please call patient and let her know hgb has only increase a small amount. She should continue iron supplements BID, increase iron rich foods, and follow up with PCP. 08728-1Deikgmxzz encounter BjinAY5705-75-95W88:20:08Telephone encounter NoteTXT1.2.840.190293.1.13.104.2.7.2.55016 9|[id number] for patient fjkc55799-0HhgrXZBNDHVOTG98 [address] [id number] FHVVEFQGLBSKQOCN1827-77-97E61:20:081.2.840 .348890.1.72.3.15|1.2.840.447529.1.13.104. 2.7.2.727879_[id number] [facility]"
--- NOTE | 2023-12-18 16:06 | RAD REPORT ---
EXAM DESCRIPTION: RAD - Chest Pa And Lat (2 Views) - 12/18/2023 4:01 pm CLINICAL HISTORY: CHEST PAIN Chest pain. COMPARISON: <Comparisons> FINDINGS: Vague nodular densities in the right apex. These may be artifactual related to the right f irst rib or represent lung nodules. Nonemergent CT chest followup would be recommended. The lungs are otherwise clear. The heart is normal in size. No displaced fractures.
[2023-12-18] MEDS ORDERED: HYDROCODONE/APAP 7.5/325 MG TAB ONE (16:13)
--- NOTE | 2023-12-18 17:57 | EDPHYS ---
Physician Documentation [facility] Name: Tomasa Dahl Age: 43 yrs Sex: Female : 1980 Arrival Date: 12/18/2023 Time: 15:16 Bed 10 Private MD: ED Physician Tavo Vera HPI: 12/17 17:54 This 43 yrs old Female presents to ER via Ambulatory with complaints of Chest Tightness.kb 17:54 Pt is a 43 year old male who presents for chest pain that started this morning. States kb pain is worse on inspiration. Denies cough, fever, shortness of breath. Pt was here earlier today for similar complaint. 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 - Infectious Disease History:: Denies. - Social history:: Smoking status: Patient denies any tobacco usage or history of. ROS: 16:45 Constitutional: As per HPI kb Exam: 16:45 Constitutional: This is a well developed, well nourished patient who is awake, alert, kb and in no acute distress. Head/Face: Normocephalic, atraumatic. ENT: Moist Mucous membranes Cardiovascular: Regular rate Respiratory: Respirations even and unlabored. No increased work of breathing. Talking in full sentences Abdomen/GI: Soft, non-tender. No distention Skin: Warm, dry with normal turgor. Normal color. MS/ Extremity: Pulses equal, no cyanosis. Neurovascular intact. Full, normal range of motion. Neuro: Awake and alert, GCS 15, oriented to person, place, time, and situation. Moves all extremities. Normal gait. 16:45 ECG was reviewed by the Attending Physician. Vital Signs: 15:38 BP 119 / 73; Pulse 61; Resp 15 S; Temp 97.9(TE); Pulse Ox 98% on R/A; Weight 63.96 kg as6 (R); Height 5 ft. 4 in. (R); Pain 5/10; 17:56 BP 128 / 77; Pulse 53; Resp 16; Temp 97.3(TE); Pulse Ox 98% on R/A; Pain 3/10; nj1 15:38 Body Mass Index 24.20 (63.96 kg, 162.56 cm) as6 15:38 Pain Scale: Adult as6 17:56 Pain Scale: Adult nj1 MDM: 15:38 Patient medically screened. kb 17:54 Data reviewed: vital signs, nurses notes. kb 17:56 Differential diagnosis: abnormal EKG, acute myocardial infarction, chest wall pain, kb pleurisy. Counseling: I had a detailed discussion with the patient and/or guardian regarding the historical points, exam findings, and any diagnostic results supporting the discharge/admit diagnosis, lab results, radiology results, the need for outpatient follow up, a family practitioner, to return to the emergency department if symptoms worsen or persist or if there are any questions or concerns that arise at home. 18:46 Special discussion: I discussed with the patient the need to follow-up with the kb PCP/specialist for the noted incidental finding on X-ray/CT scanning. 12/17 15:51 Order name: Troponin High Sensitivity; Complete Time: 17:42 kb 12/17 15:51 Order name: Chest Pa And Lat (2 Views) XRAY; Complete Time: 16:11 kb 12/17 15:51 Order name: EKG - Nurse/Tech; Complete Time: 16:33 kb EC:45 Rate is 57 beats/min. Rhythm is regular. QRS [place] is Normal. OK interval is normal at kb 136 msec. QRS interval is normal at 84 msec. QT interval is normal at 416 msec. Administered Medications: 16:18 Drug: Hydrocodone-Acetaminophen PO (7.5 mg-325 mg) 1 tabs PO once Route: PO; nj1 17:57 Follow up: Response: No adverse reaction; Pain is decreased nj1 Disposition Summary: 12/18/23 17:57 Discharge Ordered Notes: Location: Home kb Condition: Stable kb Diagnosis - Chest pain, unspecified kb Followup: kb - With: Emergency Department - When: As needed - Reason: Worsening of condition Followup: kb - With: Private Physician - When: 2 - 3 days - Reason: Recheck today's complaints, Continuance of care, Re-evaluation by your physician Discharge Instructions: - Discharge Summary Sheet kb - Nonspecific Chest Pain, Adult kb Forms: - Medication Reconciliation Form kb - Thank You Letter kb - Antibiotic Education kb - Prescription Opioid Use kb - Patient Portal Instructions kb - Leadership Thank You Letter kb - Work release form nj1 Signatures: Dispatcher [employer] EDMiguelina Santiago, CARLOS-Kari GONZALEZ-Alin Cote, RN RN as6 Alisa Vasquez RN RN nj1 Corrections: (The following items were deleted from the chart) 15:51 15:51 Troponin High Sensitivity+C.LAB.BRZ ordered. EDMS EDMS
--- NOTE | 2023-12-18 17:57 | ER ---
Nurse's Notes [facility] Name: Tomasa Dahl Age: 43 yrs Sex: Female : 1980 Arrival Date: 12/18/2023 Time: 15:16 Bed 10 Private MD: Diagnosis: Chest pain, unspecified Presentation: 12/17 15:38 Chief complaint: Patient states: "I was here this morning for the same thing and the as6 pain hasn't stopped". Coronavirus screen: At this time, the client does not indicate any symptoms associated with coronavirus-19. Ebola Screen: No symptoms or risks identified at this time. Initial Sepsis Screen: Does the patient meet any 2 criteria? No. Patient's initial sepsis screen is negative. Does the patient have a suspected source of infection? No. Patient's initial sepsis screen is negative. Risk Assessment: Do you want to hurt yourself or someone else? Patient reports no desire to harm self or others. Onset of symptoms was December 18, 2023. 15:38 Method Of Arrival: Ambulatory as6 15:38 Acuity: AMY 4 as6 Triage Assessment: 15:39 General: Appears in no apparent distress. Behavior is calm, cooperative. Pain: as6 Complains of pain in chest. 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 - Infectious Disease History:: Denies. - Social history:: Smoking status: Patient denies any tobacco usage or history of. Screenin:24 [facility] ED Fall Risk Assessment (Adult) History of falling in the last 3 months, nj1 including since admission No falls in past 3 months (0 pts) Confusion or Disorientation No (0 pts) Intoxicated or Sedated No (0 pts) Impaired Gait No (0 pts) Mobility Assist Device Used No (0 pt) Altered Elimination No (0 pt) Score/Fall Risk Level 0 - 2 = Low Risk Oriented to surroundings, Maintained a safe environment, Hourly rounding (assess needs \\T\\ fall precautionary measures) done. Abuse screen: Denies threats or abuse. Denies injuries from another. Nutritional screening: No deficits noted. Tuberculosis screening: No symptoms or risk factors identified. Assessment: 15:50 Reassessment: Not in room, taken to radiology. nj1 16:18 General: Appears in no apparent distress. comfortable, Behavior is calm, cooperative, nj1 appropriate for age. 16:18 Pain: Complains of pain in chest Pain does not radiate. Pain currently is 5 out of 10 nj1 on a pain scale. Neuro: No deficits noted. Cardiovascular: Patient's skin is warm and dry. Respiratory: Airway is patent Respiratory effort is even, unlabored. 16:18 Reassessment: Pt states pain is better than earlier. nj1 17:57 Reassessment: Patient appears in no apparent distress at this time. Patient and/or nj1 family updated on plan of care and expected duration. Pain level reassessed. Patient is alert, oriented x 3, equal unlabored respirations, skin warm/dry/pink. Patient states feeling better. Vital Signs: 15:38 BP 119 / 73; Pulse 61; Resp 15 S; Temp 97.9(TE); Pulse Ox 98% on R/A; Weight 63.96 kg as6 (R); Height 5 ft. 4 in. (R); Pain 5/10; 17:56 BP 128 / 77; Pulse 53; Resp 16; Temp 97.3(TE); Pulse Ox 98% on R/A; Pain 3/10; nj1 15:38 Body Mass Index 24.20 (63.96 kg, 162.56 cm) as6 15:38 Pain Scale: Adult as6 17:56 Pain Scale: Adult nj1 ED Course: 15:18 Patient arrived in ED. rg4 15:24 Tavo Vera MD is Attending Physician. ec2 15:38 Miguelina Engle FNP-C is PHCP. kb 15:38 Tavo Vera MD is Attending Physician. kb 15:39 Triage completed. as6 15:39 Arm band placed on. as6 15:41 Alisa Vasquez, RN is Primary Nurse. nj1 16:03 Chest Pa And Lat (2 Views) XRAY In Process Unspecified. EDMS 16:22 Initial lab(s) drawn, by al, sent to lab. nj1 16:25 Patient has correct armband on for positive identification. Bed in low position. Call [facility] [place] light in reach. Adult w/ patient. Provided Education on: call light, fall precautions. 16:33 EKG done, by ED staff, reviewed by Miguelina SHANKS. nj1 18:02 No provider procedures requiring assistance completed. Patient did not have IV access nj1 during this emergency room visit. Administered Medications: 16:18 Drug: Hydrocodone-Acetaminophen PO (7.5 mg-325 mg) 1 tabs PO once Route: PO; nj1 17:57 Follow up: Response: No adverse reaction; Pain is decreased nj1 Medication: 18:02 VIS not applicable for this client. nj1 Outcome: 17:57 Discharge ordered by . sada 18:02 Discharged to home ambulatory, with significant other, nj1 18:02 Condition: stable 18:02 Discharge instructions given to patient, Instructed on discharge instructions, follow up and referral plans. Demonstrated understanding of instructions, follow-up care, 18:02 Patient left the ED. nj1 Signatures: Dispatcher [employer] EDMiguelina Santiago FNP-C FNP-Lluvia Montes rg4 Alin Aguilar, NINO RN as6 Alisa Vasquez RN RN nj1 Tavo Vera MD MD ec2
[2023-12-18 18:58] VITALS: BP 128/77; TEMP 97.3; O2SAT 98
--- NOTE | 2023-12-19 12:35 | EKG ---
Test Date: 2023-12-18 Test Time: 16:25:10 Broth Setter: LENA MEASUREMENT RESULTS: Intervals: Rate: 57 IA: 136 QRSD: 84 QT: 428 QTc: 416 [place]: P: 65 IA: 136 QRS: 81 T: 34 INTERPRETIVE STATEMENTS: Sinus bradycardia Cannot rule out Anterior infarct, age undetermined Abnormal ECG Compared to ECG 12/18/2023 07:34:45 Myocardial infarct finding now present ST (T wave) deviation no longer present T-wave abnormality no longer present Electronically Signed On 12-19-23 12:33:11 CDT by Bradford Joseph
== END 2023-12-18 18:02 | disposition home or self-care (01) ==
LOC: ER 15:16
DX: R07.9 Chest pain, unspecified (principal)
CPT/HCPCS: 36415; 71046; 84484; 93005

== ENCOUNTER 2024-05-16 18:26 | Emergency (ER) | payer OTHER ==
--- OUTSIDE RECORDS SUMMARY | 2024-05-16 18:31 | XMS REPORT | Continuity of Care Document ---
Author Name Unknown Address [address] [facility] [address] [place] [address] [facility] thconnect Address [address] [facility] [address] [place] [address] Care Team Providers Care Roofing Sales Representative Name Role Phone BERTIN ZAVALA Primary Care Physician Unavailab Lynne Aguilar Attending Clinician Unavailable TIFFANIE ABREU Attending Clinician Unavailgoyo chapa Akinany WHAkua COLBERT Attending Clinician + AKUA FRYE Attending Clinician Unavail able Tiffanie Abreu CNM Attending Clinician [phone]- [phone] RADIOLOGY Attending Clinician Unavailable Radiology Attending Clinician Unavailable AMANDA JENNINGS Attending Clinician Unavail able Amanda Jennings MD Attending Clinician [phone] [email or web address]_Xavier Attending Clinician Unavaila sammi Doctor Unassigned, [place] Attending Clinician U BERTIN Torres Attending Clinician Unavailable Bertin Sanders Attending Clinician [phone] [facility] Unava ilable Lab, Ang - Db Attending Clinician Unavailable Qiana Cruz Attending Clinician Qiana ALANIZ Attending Clinician Unavailable DOUGLAS SHAVER Attending Clinician Unavailable Pgy3 Attending Clinician Unavailable Douglas Shaver MD Attending Clinician [phone] RASHEED ROMERO Attending Clinician Unavailable TIFFANIE ABREU Admitting Clinician Unavaila ble [email or web address]_S Admitting Clinician Unavaila BERTIN Roque Admitting Clinician Unavailable Payers Payer Name Policy Type Policy Number Effective Date Expirati on Date Source [facility] [id number] 2023 00:00:00 [facility] [id number] [facility] Problems Condition Name Condition Details Condition Category Status Onset Date Resolution Date Last Treatment Date Treating Clinician Comments Source Presence of intrauteri ne contracept radha device Presence of intrauteri ne contracept radah device Disease Active 8- 00:00: 00 [facility] Anemia, unspecifie d Anemia, unspecifie d Disease Active 8-11 00:00: 00 [facility] Need for hepatitis C screening test Need for hepatitis C screening test Disease Active 2-03 00:00: 00 [facility] Acute pain of right knee Acute pain of right knee Disease Active - 00:00: 00 [facility] Metatarsal jamir of left foot Metatarsal jamir of left foot Disease Active - 00:00: 00 [facility] Left foot pain Left foot pain Disease Active - 00:00: 00 [facility] Iron deficiency anemia due to chronic blood loss Iron deficiency anemia due to chronic blood loss Disease Active 1-06 00:00: 00 [facility] Need for vaccinatio n Need for vaccinatio n Disease Active 1-06 00:00: 00 [facility] Cervical Papanicola ou smear negative within last 12 months Cervical Papanicola ou smear negative within last 12 months Disease Active 2022-0 8-16 00:00: 00 Overview: Formattin g of this note might be different from the original. 04/2020 NIL pap neg HPV See scanned chart [facility] Well woman exam Well woman exam Disease Active 05-22 00:00: 00 Overview: Formattin g of this note might be different from the original. No pap records received [facility] Excessive or frequent menstruati on Excessive or frequent menstruati on Disease Active 10-29 00:00: 00 [facility] Other general counseling and advice for contracept radha management Other general counseling and advice for contracept radha management Disease Active 06-09 00:00: 00 Overview: Formattin g of this note might be different from the original. 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 [facility] Anemia due to chronic blood loss Iron deficiency anemia secondary to blood loss (chronic) Problem [facility] Allergic rhinitis Non-season al allergic rhinitis, unspecifie d trigger Problem [facility] [id number] Migraine without aura and without status migrainosu s, not intractabl e Problem [facility] [id number] Abnormal mammogram Problem [facility] Premenopau priyank menorrhagi a Excessive bleeding in the premenopau priyank period Problem [facility] Allergies, Adverse Reactions, Alerts Allergy Name Allergy Type Status Severity Reaction(s) Onset Date Inactive Date Treating Clinician Comments Source NO KNOWN ALLERGIE S Drug Class Active [facility] Social History Social Habit Start Date Stop Date Quantity Comments Source History of Tobacco Use [facility] Sex Assigned At [facility] Gender identity [facility] Al[facility] beverage intake 2024-01-30 00:00:00 2024-01-30 00:00:00 0 /d [facility] Alcohol intake 2024-01-02 00:00:00 2024-01-02 00:00:00 0 /d [facility] History of Social function 2023-04-20 00:00:00 2023-04-20 00:00:[address] [facility] Exposure to SARS-CoV-2 (event) 2022-12-15 00:00:00 2022-12-25 09:03:[address] [facility] Tobacco use and exposure 2022-04-20 00:00:00 2022-04-20 00:00:00 Smokeless tobacco non-user [facility] Smoking Status Start Date Stop Date Source Never smoked tobacco [facility] Medications Ordered Medication Name Filled Medication Name Start Date Stop Date Current Medication? Ordering Clinician Indication Dosage Frequency Signature (SIG) Comments Components Source ferrous sulfate 325 mg (65 mg iron) tablet 04-22 12:00: 42 04-22 00:00 :00 No [id number] 325mg Take 325 mg by mouth daily. [facility] nystatin 100,000 unit/gram cream 04-20 00:00: 00 Yes [id number] Apply to area(s) 2 (two) times daily. [facility] ibuprofen 600 mg tablet 09-15 00:00: 00 09-30 05:59 :00 No [id number] 600mg Take 1 tablet by mouth every 6 (six) hours as needed for Temp > 38.5 C for up to 14 days. [facility] benzonatate 200 mg capsule 2021-09 00:00: 00 04-20 00:00 :00 No [id number] 200mg Take 1 capsule by mouth 3 (three) times daily as needed for Cough for up to 20 doses. [facility] ibuprofen (IBU) tablet 800 mg 05-01 21:00: 00 05-01 20:36 :00 No [id number] 800mg [facility] levonorgest reL (LILETTA) IUD 1 Device 05-01 20:30: 00 05-01 20:36 :00 No [id number] 1{devic e} [facility] ferrous sulfate 325 mg (65 mg iron) tablet 04-20 09:16: 13 Yes [id number] 325mg Take 325 mg by mouth daily. [facility] CYANOCOBALA MIN, VITAMIN B-12, (VITAMIN B-12 ORAL) 8-11 09:16: 13 Yes Take by mouth. [facility] SUMAtriptan Succinate 50 MG SUMAtriptan Succinate 50 MG No QD SUMAtripta n Succinate 50 MG Diclofenac Sodium 75 MG Diclofenac Sodium 75 MG No 1{table t_as_ne eded} BID Diclofenac Sodium 75 MG Loratadine 10 MG Loratadine 10 MG No 1{table t} QD Loratadine 10 MG Immunizations Ordered Immunization Name Filled Immunization Name Date Status Comments Source HPV9 2022-10-25 00:00:[address] [facility] 2022-10-25 00:00:[address] [facility] HPV9 2022-10-25 00:00:[address] [facility] HPV9 2022-10-25 00:00:[address] [facility] HPV9 2022-10-25 00:00:[address] [facility] HPV9 2022-10-25 00:00:[address] [facility] HPV9 2022-10-25 00:00:[address] [facility] HPV9 2022-10-25 00:00:[address] [facility] Influenza Virus Vaccine Quad IM, Preserv and ABX Free 6 MO-64 2022-09-15 00:00:[address] [facility] Influenza Virus Vaccine Quad IM, Preserv and ABX Free 6 MO-64 2022-09-15 00:00:[address] [facility] Influenza Virus Vaccine Quad IM, Preserv and ABX Free 6 MO-64 YRS 2022-09-15 00:00:[address] [facility] Influenza Virus Vaccine Quad IM, Preserv and ABX Free 6 MO-64 2022-09-15 00:00:[address] [facility] Influenza Virus Vaccine Quad IM, Preserv and ABX Free 6 MO-64 2022-09-15 00:00:[address] [facility] Influenza Virus Vaccine Quad IM, Preserv and ABX Free 6 MO-64 2022-09-15 00:00:[address] [facility] Influenza Virus Vaccine Quad IM, Preserv and ABX Free 6 MO-64 2022-09-15 00:00:[address] [facility] Influenza Virus Vaccine Quad IM, Preserv and ABX Free 6 MO-64 YRS 2022-09-15 00:00:[address] [facility] Influenza Virus Vaccine Quad IM, Preserv and ABX Free 6 MO-64 YRS 2022-09-15 00:00:[address] [facility] Influenza Virus Vaccine Quad IM, Preserv and ABX Free 6 MO-64 YRS 2022-09-15 00:00:[address] [facility] Influenza Virus Vaccine Quad IM, Preserv and ABX Free 6 MO-64 YRS 2022-09-15 00:00:[address] [facility] Influenza Virus Vaccine Quad IM, Preserv and ABX Free 6 MO-64 YRS 2022-09-15 00:00:[address] [facility] Influenza Virus Vaccine Quad IM, Preserv and ABX Free 6 MO-64 YRS 2022-09-15 00:00:[address] [facility] Influenza Virus Vaccine Quad IM, Preserv and ABX Free 6 MO-64 YRS 2022-09-15 00:00:[address] [facility] Influenza Virus Vaccine Quad IM, Preserv and ABX Free 6 MO-64 YRS 2022-09-15 00:00:[address] [facility] HPV9 2022-05-22 00:00:[address] [facility] HPV9 2022-05-22 00:00:[address] [facility] HPV9 2022-05-22 00:00:[address] [facility] HPV9 2022-05-22 00:00:[address] [facility] HPV9 2022-05-22 00:00:[address] [facility] HPV9 2022-05-22 00:00:[address] [facility] HPV9 2022-05-22 00:00:[address] [facility] HPV9 2022-05-22 00:00:[address] [facility] HPV9 2022-05-22 00:00:[address] [facility] HPV9 2022-05-22 00:00:[address] [facility] HPV9 2022-05-22 00:00:[address] [facility] HPV9 2022-05-22 00:00:00 Completed [facility] HPV9 2022-05-22 00:00:00 Completed [facility] HPV9 2022-05-22 00:00:00 Completed [facility] HPV9 2022-05-22 00:00:00 Completed [facility] HPV9 2022-05-22 00:00:00 Completed [facility] HPV9 2022-05-22 00:00:00 Completed [facility] HPV9 2022-05-22 00:00:00 Completed [facility] HPV9 2022-05-22 00:00:[address] [facility] HPV9 2022-04-20 00:00:[address] [facility] HPV9 2022-04-20 00:00:[address] [facility] HPV9 2022-04-20 00:00:[address] [facility] HPV9 2022-04-20 00:00:[address] [facility] HPV9 2022-04-20 00:00:00 Completed [facility] HPV9 2022-04-20 00:00:00 Completed [facility] HPV9 2022-04-20 00:00:[address] [facility] HPV9 2022-04-20 00:00:00 Completed [facility] HPV9 2022-04-20 00:00:00 Completed [facility] HPV9 2022-04-20 00:00:00 Completed [facility] HPV9 2022-04-20 00:00:00 Completed [facility] HPV9 2022-04-20 00:00:00 Completed [facility] HPV9 2022-04-20 00:00:00 Completed [facility] HPV9 2022-04-20 00:00:00 Completed [facility] HPV9 2022-04-20 00:00:00 Completed [facility] HPV9 2022-04-20 00:00:00 Completed [facility] HPV9 2022-04-20 00:00:00 Completed [facility] HPV9 2022-04-20 00:00:00 Completed [facility] HPV9 2022-04-20 00:00:[address] [facility] HPV9 2022-04-20 00:00:[address] [facility] Td 2016-08-06 00:00:[address] [facility] Td 2016-08-06 00:00:[address] [facility] Td 2016-08-06 00:00:[address] [facility] TD, NOS 2016-08-06 00:00:[address] [facility] TD, NOS 2016-08-06 00:00:[address] [facility] TD, NOS 2016-08-06 00:00:[address] [facility] TD, NOS 2016-08-06 00:00:[address] [facility] TD, NOS 2016-08-06 00:00:[address] [facility] TD, NOS 2016-08-06 00:00:[address] [facility] TD, NOS 2016-08-06 00:00:[address] [facility] TD, NOS 2016-08-06 00:00:[address] [facility] TD, NOS 2016-08-06 00:00:[address] [facility] TD, NOS 2016-08-06 00:00:[address] [facility] TD, NOS 2016-08-06 00:00:[address] [facility] TD, NOS 2016-08-06 00:00:[address] [facility] TD, NOS 2016-08-06 00:00:[address] [facility] TD, NOS 2016-08-06 00:00:[address] [facility] TD, NOS 2016-08-06 00:00:[address] [facility] TD, NOS 2016-08-06 00:00:00 Completed [facility] TD, NOS 2016-08-06 00:00:[address] [facility] Td 2009-09-10 00:00:[address] [facility] Td 2009-09-10 00:00:[address] [facility] Td 2009-09-10 00:00:00 Completed [facility] TD, NOS 2009-09-10 00:00:[address] [facility] TD, NOS 2009-09-10 00:00:00 Completed [facility] TD, NOS 2009-09-10 00:00:[address] [facility] TD, NOS 2009-09-10 00:00:[address] [facility] TD, NOS 2009-09-10 00:00:[address] [facility] TD, NOS 2009-09-10 00:00:[address] [facility] TD, NOS 2009-09-10 00:00:[address] [facility] TD, NOS 2009-09-10 00:00:[address] [facility] TD, NOS 2009-09-10 00:00:[address] [facility] TD, NOS 2009-09-10 00:00:[address] [facility] TD, NOS 2009-09-10 00:00:[address] [facility] TD, NOS 2009-09-10 00:00:[address] [facility] TD, NOS 2009-09-10 00:00:[address] [facility] TD, NOS 2009-09-10 00:00:[address] [facility] TD, NOS 2009-09-10 00:00:[address] [facility] TD, NOS 2009-09-10 00:00:[address] [facility] TD, NOS 2009-09-10 00:00:[address] [facility] TD, NOS Unknown Completed [facility] TD, NOS Unknown Completed [facility] HPV9 Unknown Completed [facility] HPV9 Unknown Completed [facility] Influenza Virus Vaccine Quad IM, Preserv and ABX Free 6 MO-64 YRS (FLUCELVAX) Unknown Completed [facility] TD, NOS Unknown Completed [facility] TD, NOS Unknown Completed [facility] HPV9 Unknown Completed [facility] HPV9 Unknown Completed [facility] Influenza Virus Vaccine Quad IM, Preserv and ABX Free 6 MO-64 YRS (FLUCELVAX) Unknown Completed [facility] HPV9 Unknown Completed [facility] TD, NOS Unknown Completed [facility] TD, NOS Unknown Completed [facility] HPV9 Unknown Completed [facility] HPV9 Unknown Completed [facility] Influenza Virus Vaccine Quad IM, Preserv and ABX Free 6 MO-64 YRS (FLUCELVAX) Unknown Completed [facility] HPV9 Unknown Completed [facility] TD, NOS Unknown Completed [facility] TD, NOS Unknown Completed [facility] HPV9 Unknown Completed [facility] HPV9 Unknown Completed [facility] Influenza Virus Vaccine Quad IM, Preserv and ABX Free 6 MO-64 YRS (FLUCELVAX) Unknown Completed [facility] HPV9 Unknown Completed [facility] TD, NOS Unknown Completed [facility] TD, NOS Unknown Completed [facility] HPV9 Unknown Completed [facility] HPV9 Unknown Completed [facility] Influenza Virus Vaccine Quad IM, Preserv and ABX Free 6 MO-64 YRS (FLUCELVAX) Unknown Completed [facility] HPV9 Unknown Completed [facility] TD, NOS Unknown Completed [facility] TD, NOS Unknown Completed [facility] HPV9 Unknown Completed [facility] HPV9 Unknown Completed [facility] Influenza Virus Vaccine Quad IM, Preserv and ABX Free 6 MO-64 YRS (FLUCELVAX) Unknown Completed [facility] HPV9 Unknown Completed [facility] TD, NOS Unknown Completed [facility] TD, NOS Unknown Completed [facility] HPV9 Unknown Completed [facility] HPV9 Unknown Completed [facility] Influenza Virus Vaccine Quad IM, Preserv and ABX Free 6 MO-64 YRS (FLUCELVAX) Unknown Completed [facility] HPV9 Unknown Completed [facility] TD, NOS Unknown Completed [facility] TD, NOS Unknown Completed [facility] HPV9 Unknown Completed [facility] HPV9 Unknown Completed [facility] Influenza Virus Vaccine Quad IM, Preserv and ABX Free 6 MO-64 YRS (FLUCELVAX) Unknown Completed [facility] HPV9 Unknown Completed [facility] TD, NOS Unknown Completed [facility] TD, NOS Unknown Completed [facility] HPV9 Unknown Completed [facility] HPV9 Unknown Completed [facility] Influenza Virus Vaccine Quad IM, Preserv and ABX Free 6 MO-64 YRS (FLUCELVAX) Unknown Completed [facility] HPV9 Unknown Completed [facility] TD, NOS Unknown Completed [facility] TD, NOS Unknown Completed [facility] HPV9 Unknown Completed [facility] HPV9 Unknown Completed [facility] Influenza Virus Vaccine Quad IM, Preserv and ABX Free 6 MO-64 YRS (FLUCELVAX) Unknown Completed [facility] HPV9 Unknown Completed [facility] TD, NOS Unknown Completed [facility] TD, NOS Unknown Completed [facility] HPV9 Unknown Completed [facility] HPV9 Unknown Completed [facility] Influenza Virus Vaccine Quad IM, Preserv and ABX Free 6 MO-64 YRS (FLUCELVAX) Unknown Completed [facility] HPV9 Unknown Completed [facility] TD, NOS Unknown Completed [facility] TD, NOS Unknown Completed [facility] HPV9 Unknown Completed [facility] HPV9 Unknown Completed [facility] Influenza Virus Vaccine Quad IM, Preserv and ABX Free 6 MO-64 YRS (FLUCELVAX) Unknown Completed [facility] HPV9 Unknown Completed [facility] TD, NOS Unknown Completed [facility] TD, NOS Unknown Completed [facility] HPV9 Unknown Completed [facility] HPV9 Unknown Completed [facility] Influenza Virus Vaccine Quad IM, Preserv and ABX Free 6 MO-64 YRS (FLUCELVAX) Unknown Completed [facility] HPV9 Unknown Completed [facility] Vital Signs Vital Name Observation Time Observation Value Comments S ource Systolic blood pressure 2024-01-30 19:59:00 128 mm[Hg] [facility] Diastolic blood pressure 2024-01-30 19:59:00 75 mm[Hg] [facility] Heart rate 2024-01-30 19:59:00 65 /min [facility] Body temperature 2024-01-30 19:59:[address] [facility] Respiratory rate 2024-01-30 19:59:00 18 /min [facility] Body height 2024-01-30 19:59:00 162.6 cm [facility] Body weight 2024-01-30 19:59:00 62.506 kg [facility] BMI 2024-01-30 19:59:00 23.65 kg/m2 [facility] height 2024-01-17 08:00:00 64 [in_i] [facility] weight 2024-01-17 08:00:00 136 [lb_av] Comm on [facility] temperature 2024-01-17 08:00:00 97.4 [degF] Com mon [facility] bmi 2024-01-17 08:00:00 23.34 kg/m2 [facility] oximetry 2024-01-17 08:00:00 99 % Commo n [facility] respiratory rate 2024-01-17 08:00:00 16 /min [facility] blood pressure systolic 2024-01-17 08:00:00 128 mm[Hg] [facility] blood pressure diastolic 2024-01-17 08:00:00 72 mm[Hg] [facility] Systolic blood pressure 2023-04-20 18:39:00 123 mm[Hg] [facility] Diastolic blood pressure 2023-04-20 18:39:00 66 mm[Hg] [facility] Heart rate 2023-04-20 18:39:00 78 /min [facility] Body temperature 2023-04-20 18:39:[address] [facility] Respiratory rate 2023-04-20 18:39:00 16 /min [facility] Body height 2023-04-20 18:39:00 162.6 cm [facility] Body weight 2023-04-20 18:39:00 65.499 kg [facility] BMI 2023-04-20 18:39:00 24.79 kg/m2 [facility] Body temperature 2022-10-25 14:10:[address] [facility] Systolic blood pressure 2022-10-13 20:00:00 119 mm[Hg] [facility] Diastolic blood pressure 2022-10-13 20:00:00 62 mm[Hg] [facility] Heart rate 2022-10-13 20:00:00 70 /min [facility] Body temperature 2022-10-13 20:00:[address] [facility] Body height 2022-10-13 20:00:00 162.6 cm [facility] Body weight 2022-10-13 20:00:00 64.864 kg [facility] BMI 2022-10-13 20:00:00 24.55 kg/m2 [facility] Oxygen saturation in Arterial blood by Pulse oximetry 2022-10-13 20:00:00 100 /min [facility] Systolic blood pressure 2022-09-15 14:48:00 107 mm[Hg] [facility] Diastolic blood pressure 2022-09-15 14:48:00 64 mm[Hg] [facility] Heart rate 2022-09-15 14:48:00 69 /min [facility] Body temperature 2022-09-15 14:48:[address] [facility] Body height 2022-09-15 14:48:00 162.6 cm [facility] Body weight 2022-09-15 14:48:00 64.411 kg [facility] BMI 2022-09-15 14:48:00 24.37 kg/m2 [facility] Oxygen saturation in Arterial blood by Pulse oximetry 2022-09-15 14:48:00 100 /min [facility] Systolic blood pressure 2022-08-31 19:00:00 115 mm[Hg] [facility] Diastolic blood pressure 2022-08-31 19:00:00 66 mm[Hg] [facility] Heart rate 2022-08-31 19:00:00 70 /min [facility] Respiratory rate 2022-08-31 19:00:00 16 /min [facility] Oxygen saturation in Arterial blood by Pulse oximetry 2022-08-31 19:00:00 100 /min [facility] Body temperature 2022-08-31 16:52:[address] [facility] Body height 2022-08-31 16:52:00 162.6 cm [facility] Body weight 2022-08-31 16:52:00 64.411 kg [facility] BMI 2022-08-31 16:52:00 24.37 kg/m2 [facility] Systolic blood pressure 2022-05-22 14:03:00 119 mm[Hg] [facility] Diastolic blood pressure 2022-05-22 14:03:00 68 mm[Hg] [facility] Heart rate 2022-05-22 14:03:00 63 /min [facility] Body temperature 2022-05-22 14:03:[address] [facility] Respiratory rate 2022-05-22 14:03:00 18 /min [facility] Body height 2022-05-22 14:03:00 162.6 cm [facility] Body weight 2022-05-22 14:03:00 64.774 kg [facility] BMI 2022-05-22 14:03:00 24.51 kg/m2 [facility] Systolic blood pressure 2022-05-01 18:01:00 119 mm[Hg] [facility] Diastolic blood pressure 2022-05-01 18:01:00 64 mm[Hg] [facility] Heart rate 2022-05-01 18:01:00 65 /min [facility] Body temperature 2022-05-01 18:01:[address] [facility] Body height 2022-05-01 18:01:00 162.6 cm [facility] Body weight 2022-05-01 18:01:00 62.914 kg [facility] BMI 2022-05-01 18:01:00 23.81 kg/m2 [facility] Procedures Procedure Date / Time Performed Performing Clinician Source BI DIAGNOSTIC TOMOSYNTHESIS LEFT 2024-01-02 19:57:[address] [facility] BI SELF-REQUESTED SCREENING TOMOSYNTHESIS BILATERAL 2023-12-07 20:58:[address] [facility] CBC WITH DIFF 2023-04-20 19:19:[address] [facility] ASSIGNMENT OF BENEFITS 2023-04-20 18:25:28 Docto r Unassigned, [place] [facility] PATIENT CORRESPONDENCE (LETTERS, USPS DOCUMENTATION) 2023-01-26 05:01:00 Doctor Unassigned, [place] [facility] CONSENT/REFUSAL FOR DIAGNOSIS AND TREATMENT 2022-12-06 15:52:20 Doctor Unassigned, [place] [facility] ASSIGNMENT OF BENEFITS 2022-12-06 15:50:30 Docto r Unassigned, [place] [facility] GARDASIL 9 (HPV 9V) VACCINE 2022-10-25 14:12:[address] [facility] POCT TEST 2022-09-15 15:32:00 Bertin Zavala [facility] FLU VACC (), 6 MO-64 YRS, .5ML, IM, QUAD (FLUCELVAX) 2022-09-15 15:25:[address] [facility] RAPID INFLUENZA A/B 2022-08-31 18:03:[address] [facility] CONSENT/REFUSAL FOR DIAGNOSIS AND TREATMENT 2022-08-31 16:46:34 Doctor Unassigned, [place] [facility] GARDASIL 9 (HPV 9V) VACCINE 2022-05-22 13:54:[address] [facility] PAP SMEAR-LIQUID BASED-CP 2022-05-01 20:15:[address] [facility] Encounters Start Date/Time End Date/Time Encounter Type Admission Type Attending Clinicians Care Facility Care Department Encounter ID Source 2024-01-17 08:01:00 Outpatient Lynne Bourne [facility] [id number] [facility] 2024-05-01 13:45:00 2024-05-01 13:45:00 Outpatient TIFFANIE REED [facility] [id number] [facility] 2024-02-11 00:00:00 2024-02-11 00:00:00 (TEL) [facility] [id number] [facility] 2024-02-05 00:00:2024-02-05 07:48:37 Telephone Akua Frye [facility] BUSINESS SYSTEM MANAGER [facility] MATERNAL & CHILD [facility] 1..840.114 350.1.13.10 4.2.7.2.686 [id number] [facility] 2024-01-30 14:30:00 2024-01-30 15:26:22 Outpatient R AKUA FRYE [facility] [id number] [facility] 2024-01-30 14:30:00 2024-01-30 15:26:22 Office Visit Akua Frye [facility] BUSINESS SYSTEM MANAGER [facility] MATERNAL & CHILD [facility] 1..840.114 350.1.13.10 4.2.7.2.686 [id number] [facility] 2024-01-17 00:00:00 2024-01-17 00:00:00 PREV VISIT EST AGE 40-64 [facility] [id number] 2024-01-03 08:00:00 2024-01-03 08:00:00 Outpatient R AKUA FRYE [facility] [id number] [facility] 2024-01-03 00:00:00 2024-01-03 00:00:00 Telephone Akua Frye [facility] BUSINESS SYSTEM MANAGER [facility] MATERNAL & CHILD [facility] 1..840.114 350.1.13.10 4.2.7.2.686 [id number] [facility] 2024-01-02 13:31:18 2024-01-02 23:59:00 Outpatient R TIFFANIE ABREU [facility] [id number] [facility] 2024-01-02 13:31:18 2024-01-02 23:59:00 Hospital Encounter Tiffanie Abreu [facility] 1..840.114 350.1.13.10 4.2.7.2.686 [id number] [facility] 2024-01-02 13:28:38 2024-01-02 13:30:00 Hospital Encounter Radiology [facility] 1.2.840.114 350.1.13.10 4.2.7.2.686 [id number] [facility] 2023-12-20 00:00:00 2023-12-20 00:00:00 Telephone Akua Frye [facility] BUSINESS SYSTEM MANAGER [facility] & CHILD [facility] 1.2.840.114 350.1.13.10 4.2.7.2.686 [id number] [facility] 2023-12-10 00:00:00 2023-12-10 00:00:00 Telephone Tiffanie Abreu [facility] BUSINESS SYSTEM MANAGER [facility] & CHILD [facility] 1.2.840.114 350.1.13.10 4.2.7.2.686 [id number] [facility] 2023-12-10 00:00:00 2023-12-10 00:00:00 Case Management Tiffanie Abreu [facility] 1.2.840.114 350.1.13.10 4.2.7.2.686 [id number] [facility] 2023-12-07 15:39:02 2023-12-07 23:59:00 Outpatient AMNADA ALONSO [facility] [id number] [facility] 2023-12-07 15:39:02 2023-12-07 23:59:00 Hospital Encounter Amanda Jennings [facility] 1.2.840.114 350.1.13.10 4.2.7.2.686 [id number] [facility] 2023-10-15 00:00:00 2023-10-15 00:00:00 Outpatient TIFFANIE REED [facility] [id number] [facility] 2023-07-10 00:00:00 2023-07-10 00:00:00 Outpatient GC_GCBZW_Ka diyala_S PRIV PRIV [id number] [facility] 2023-07-06 00:00:00 2023-07-06 00:00:00 Outpatient GC_GCBZW_Ka diyala_S PRIV PRIV [id number] [facility] 2023-04-23 00:00:00 2023-04-23 00:00:00 Case Management Tiffanie Abreu [facility] BUSINESS SYSTEM MANAGER [facility] MATERNAL & CHILD [facility] 1.0.114 350.1.13.10 4.2.7.2.686 [id number] [facility] 2023-04-23 00:00:00 2023-04-23 00:00:00 Telephone Tiffanie Abreu [facility] BUSINESS SYSTEM MANAGER [facility] & CHILD [facility] 1..114 350.1.13.10 4.2.7.2.686 [id number] [facility] 2023-04-20 13:30:00 2023-04-20 14:20:04 Outpatient R TIFFANIE ABREU [facility] [id number] [facility] 2023-04-20 13:30:00 2023-04-20 14:20:04 Office Visit Tiffanie Abreu Damilola C [facility] BUSINESS SYSTEM MANAGER [facility] & CHILD [facility] 1.840.114 350.1.13.10 4.2.7.2.686 [id number] [facility] 2023-04-20 00:00:00 2023-04-20 00:00:00 Orders Only Doctor Unassigned, [place] [facility] 1.0.114 350.1.13.10 4.2.7.2.686 [id number] [facility] 2023-01-26 14:45:00 2023-01-26 14:45:00 Outpatient AKUA KELLEY [facility] [id number] [facility] 2023-01-26 00:00:00 2023-01-26 00:00:00 Orders Only Doctor Unassigned, [place] [facility] 1.840.114 350.1.13.10 4.2.7.2.686 [id number] [facility] 2022-12-25 09:30:00 2022-12-25 09:30:00 Outpatient R BERTIN ZAVALA [facility] [id number] [facility] 2022-12-13 09:15:00 2022-12-13 09:15:00 Outpatient AKUA KELLEY [facility] [id number] [facility] 2022-12-06 10:50:56 2022-12-06 23:59:00 Outpatient R BERTIN ZAVALA [facility] [id number] [facility] 2022-12-06 10:50:56 2022-12-06 23:59:00 Hospital Encounter Bertin Zavala [facility] 1.840.114 350.1.13.10 4.2.7.2.686 [id number] [facility] 2022-10-25 08:00:00 2022-10-25 08:00:14 Outpatient AKUA KELLEY [facility] [id number] [facility] 2022-10-25 08:00:00 2022-10-25 08:00:14 Nurse Visit Visit, Ang-Rmchp Nurse Akua Frye [facility] BUSINESS SYSTEM MANAGER [facility] 1.840.114 350.1.13.10 4.2.7.2.686 [id number] [facility] 2022-10-23 09:00:00 2022-10-23 09:00:00 Outpatient R AKUA FRYE [facility] [id number] [facility] 2022-10-13 14:30:00 2022-10-13 14:45:00 Latex Ribbon Machine Operator Visit Lab, Kavon ZavalaBertin [facility] EVIE?[facility] 1.2.840.114 350.1.13.10 4.2.7.2.686 [id number] [facility] 2022-10-13 14:00:00 2022-10-13 14:31:16 Outpatient R SALLY BERTIN [facility] [id number] [facility] 2022-10-13 14:00:00 2022-10-13 14:31:16 Office Visit Sally [facility] 1.2.840.114 350.1.13.10 4.2.7.2.686 [id number] [facility] 2022-09-18 00:00:00 2022-09-18 00:00:00 Patient Secure Msg Doctor Unassigned, [place] [facility] 1.2.840.114 350.1.13.10 4.2.7.2.686 [id number] [facility] 2022-09-15 10:30:03 2022-09-15 11:14:00 Outpatient R SALLY BERTIN [facility] [id number] [facility] 2022-09-15 09:30:00 2022-09-15 09:45:00 Latex Ribbon Machine Operator Visit Lab, Kavon Zavala [facility] EVIE?[facility] MED[facility] OFF[facility] BUILD[facility] 1.2.840.114 350.1.13.10 4.2.7.2.686 [id number] [facility] 2022-09-15 09:00:00 2022-09-15 09:28:09 Office Visit Sally [facility] 1.840.114 350.1.13.10 4.2.7.2.686 [id number] [facility] 2022-09-15 00:00:00 2022-09-15 00:00:00 Telephone Bertin Zavala [facility] EVIE?[facility] 1.84.114 350.1.13.10 4.2.7.2.686 [id number] [facility] 2022-09-06 15:00:00 2022-09-06 15:00:00 Outpatient BERTIN ENGLAND [facility] [id number] [facility] 2022-08-31 10:53:00 2022-08-31 13:07:00 Emergency Qiana Alaniz [facility] 1.84.114 350.1.13.10 4.2.7.2.686 [id number] [facility] 2022-08-31 10:53:00 2022-08-31 13:07:00 Emergency X Qiana ALANIZ [facility] ERT [id number] [facility] 2022-05-23 00:00:00 2022-05-23 00:00:00 Telephone Akua Frye [facility] BUSINESS SYSTEM MANAGER [facility] MATERNAL & CHILD [facility] 1.840.114 350.1.13.10 4.2.7.2.686 [id number] [facility] 2022-05-22 08:30:00 2022-05-22 09:05:30 Outpatient AKUA KELLEY [facility] [id number] [facility] 2022-05-22 08:30:00 2022-05-22 09:05:30 Nurse Visit Visit, Kavon-Rmchp Nurse Akua Frye [facility] BUSINESS SYSTEM MANAGER [facility] MATERNAL & CHILD [facility] 1.840.114 350.1.13.10 4.2.7.2.686 [id number] [facility] 2022-05-02 00:00:00 2022-05-02 00:00:00 Orders Only Doctor Unassigned, [place] [facility] 1.840.114 350.1.13.10 4.2.7.2.686 [id number] [facility] 2022-05-01 13:30:00 2022-05-01 15:10:21 Outpatient R DOUGLAS SHAVER [facility] [id number] [facility] 2022-05-01 13:30:00 2022-05-01 15:10:21 Outpatient R DOUGLAS SHAVER [facility] [id number] [facility] 2022-05-01 13:30:00 2022-05-01 15:10:21 Office Visit Pgy3 Douglas Shaver [facility] 1..114 350.1.13.10 4.2.7.2.686 [id number] [facility] 2022-04-20 09:00:00 2022-04-20 10:08:33 Office Visit Akua Frye [facility] BUSINESS SYSTEM MANAGER [facility] 1..114 350.1.13.10 4.2.7.2.686 [id number] [facility] 2022-04-20 09:00:00 2022-04-20 10:08:33 Outpatient R AKUA FRYE [facility] [id number] [facility] 2022-04-20 00:00:00 2022-04-20 00:00:00 Orders Only Doctor Unassigned, [place] [facility] 1.0.114 350.1.13.10 4.2.7.2.686 [id number] [facility] 2022-03-21 14:30:00 2022-03-21 14:30:00 Outpatient RASHEED SHRESTHA [facility] [id number] [facility] Results Test Description Test Time Test Comments Results Resul t Comments Source BI DIAGNOSTIC TOMOSYNTHESIS LEFT 2023-12-11 4 19:59:19 Examination:BI DIAGNOSTIC TOMOSYNTHESIS LEFT History:Patient is 43 year old and is seen for: ?9 mm focal asymmetry in the outer central region, 4 cm from the nipple. Computer-aided detection (CAD) utilized. Comparisons: 12/07/2023 BI SELF-REQUESTED ?SCREENING TOMOSYNTHESIS BILATERAL and 12/06/2022 BI SCREENING MAMMOGRAM BILATERAL Findings:LeftThe left breast is heterogeneously dense, which may obscure small masses. The mammographic focal asymmetry noted at recent screening mammography did not persist with additional imaging and is consistent with superimposition of normal breast tissue. Impression:No left mammographic evidence of malignancy. Recommendation:Haley gleason mammographic follow-up - Bilateral BI-RADS Category: Left 1 - Negative [facility] BI SELF-REQUESTED SCREENING TOMOSYNTHESIS BILATERAL 2023-11-10 9 [...] 0 - Incomplete: Needs Additional [id number]00* Test Item Value Reference Range Interpretation Comme nts POCT PREG (test code = 1605) Negative On board controls acceptable with C Line (test code = 3574) Yes POCT PREG LOT # (test code = 3575) POCT PREG TEST DATE ( test code = 3576) Lab Interpretation (test cod e = [id number]) Normal [facility] Notes Date/Time Note Provider Source 2024-02-05 09:49:48 Patient informed of results and need for repeat labs, pt refused and stated she did not want to get poked again and is not concerned for exposure. [facility] 2024-02-05 07:46:47 Called patent, no answer, left v mail Please have pt return to clinic for repeat syphilis screening her initial results were inconclusive. .IZABELA Juan 02/05/2024 7:47 AM T [facility] 2024-01-03 07:53:[address] [facility] 2024-01-03 07:50:22 Called patient and rescheduled appointment. Lit Rodriguez [facility] 2024-01-03 06:50:17 Cecile Dahl is a 43 year old female Pt is requesting call back to reschedule appt for IUD placement Thank you Jaimie Cazares [facility] 2023-12-20 13:32:25 Called pt, pt has [facility] and [facility]. Desires diagnostics to be covered by private insurance. Called radiology to clarify and transferred patient. Rebeca Flannery RN 12/20/23 1:34 PM Rebeca Flannery RN [facility] 2023-12-20 12:56:46 Patient states that she was told to take to [facility] doctor before scheduling appointment with Radiology. Lit Rodriguez [facility] 2023-12-20 12:17:49 Copied from [facility] #[id number]. 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 Please call [phone] (home) [phone] (work) GRACIELA Bearden [facility] 2023-12-10 11:10:26 Pt notified of mammogram results- left breast 9 [...] understanding. MAYLIN CHRISTIANSEN RN 12/10/2023 11:[address] [facility] 2023-12-10 10:40:59 Patient self requested screening mammogram.However, it showed left breast 9 mm focal asymmetry in the outer central region, 4 cm from the nipple. She needs diagnostic mammogram and breast ultrasound which I ordered. She needs BCCS screening prior to imaging if she still has HTW. [facility] [employer] 2023-04-23 11:16:18 Formatting of this n ote might be different from the original. Patient informed of results and recommendations, verbalized understanding. [facility] [employer] 2023-04-23 10:11:48 Formatting of this n ote might be different from the original. Please call patient and let her know hgb has only increase a small amount. She should continue iron supplements BID, increase iron rich foods, and follow up with PCP. [facility] [employer]
[2024-05-16] MEDS ORDERED: KETOROLAC 30 MG/ML INJ ONE (19:40)
[2024-05-16] MEDS ORDERED: DIPHENHYDRAMINE 50 MG/ML VIAL ONE (19:41)
[2024-05-16] MEDS ORDERED: NA CHLORIDE 0.9% 1,000 ML ONE (19:41)
[2024-05-16] MEDS ORDERED: METOCLOPRAMIDE 10 MG/2mL INJ ONE (19:41)
[2024-05-16 20:07] LABS: Specific Gravity > 1.030 (1.005-1.030)
[2024-05-16 20:09] LABS: Absolute Eosinophils 0.1 K/uL (0-0.5); Absolute Lymphocytes (CBC) 1.9 K/uL (0.7-4.9); Absolute Monocytes 0.7 K/uL (0.1-1.3); Basophils % 0.5 % (0-1.3); Eosinophils % 1.6 % (0-4.4); Hematocrit 38.1 % (36.0-45.0); Hemoglobin 13.1 g/dL (12.0-15.0); Lymphocytes % 27.9 % (15.3-44.8); MCH 32.5 pg (27.0-35.0); MCHC 34.5 g/dL (32.0-36.0); MCV 94.2 fL (80-100); Monocytes % 10.1 % (3.3-12.3); Neutrophils % 59.9 % (41.7-73.7); Platelets 172 thou/uL (152-406); RBC Red Blood Cell Count 4.04 M/uL (3.86-4.86); Red Cell Distribution Width 12.4 % (12.1-15.2); Specific Gravity > 1.030 (1.005-1.030); Sqamous Epithelial <5 /HPF (None Seen); Urine Bacteria <20 /HPF (<20); Urine Bilirubin NEGATIVE (Negative); Urine Blood Negative (Negative); Urine Clarity Turbid (Clear); Urine Color Yellow (Yellow); Urine Culture Reflex Order NOT NEEDED; Urine Glucose NEGATIVE (Negative); Urine Ketones NEGATIVE (Negative); Urine Micro Reflex YN NO BILL MICROSCOPIC; Urine Mucus 2+ /HPF (None Seen); Urine Nitrite NEGATIVE (Negative); Urine Protein 1+ (Negative); Urine Urobilinogen 1+ (Normal); Urine WBC <5 /HPF (<5); Urine pH 6.5 (5.0-7.0)
[2024-05-16 21:03] LABS: Anion Gap 8.2 mEq/L (5.0-15.0)
[2024-05-16 21:04] LABS: Magnesium 2.1 mg/dL (1.6-2.4); Potassium 4.2 mEq/L (3.5-5.1)
--- NOTE | 2024-05-16 21:08 | EDPHYS ---
Physician Documentation [facility] Name: Tomasa Dahl Age: 43 yrs Sex: Female : 1980 Arrival Date: 05/16/2024 Time: 18:26 Bed 5 Private MD: ED Physician Murali Tipton HPI: 05/16 19:27 This 43 yrs old Female presents to ER via Ambulatory with complaints of Headache, sb4 Nausea. 19:27 The patient complains of pain to the forehead. headache began this morning. took a nap, sb4 took motrin, got slightly better but is still there. says she feels like it isn't going to go away on it's own. also endorses nausea, one episode of emesis. denies any blurry vision, dizziness. Historical: - Allergies: 18:38 No Known Allergies; ld1 - PMHx: 18:38 Anemia; Migraine; ld1 - Immunization history:: Adult Immunizations up to date. - Infectious Disease History:: Denies. - Social history:: Smoking status: Patient denies any tobacco usage or history of. ROS: 19:27 Constitutional: Negative for fever, chills, and weight loss, sb4 19:27 Abdomen/GI: Positive for nausea, 19:27 Neuro: Positive for headache, 19:27 All other systems are negative, Exam: 19:27 Constitutional: This is a well developed, well nourished patient who is awake, alert, sb4 and in no acute distress. Head/Face: Normocephalic, atraumatic. Eyes: Extra-ocular motions intact. Periorbital areas with no swelling, redness, or edema. ENT: Mucous membranes moist. Cardiovascular: Regular rate and rhythm with a normal S1 and S2. Respiratory: Lungs have equal breath sounds bilaterally, clear to auscultation and percussion. No rales, rhonchi or wheezes noted. No increased work of breathing, no retractions or nasal flaring. Abdomen/GI: Soft, non-tender, no distension. Skin: Warm, dry with normal turgor. Normal color with no rashes, no lesions, and no evidence of cellulitis. MS/ Extremity: Pulses equal, no cyanosis. Neurovascular intact. Full, normal range of motion. Neuro: Awake and alert, GCS 15, oriented to person, place, time, and situation. Motor strength 5/5 in all extremities. Sensory grossly intact. Vital Signs: 18:39 BP 128 / 78; Pulse 63; Resp 18; Temp 97.4(TE); Pulse Ox 100% on R/A; Weight 67.59 kg; ld1 Height 5 ft. 4 in. ; Pain 4/10; 20:04 BP 136 / 77; Pulse 55; Resp 18; Temp 98.2(O); Pulse Ox 99% on R/A; Pain 5/10; kd4 21:00 BP 112 / 58; Pulse 65; Resp 19 S; Pulse Ox 100% on R/A; ha1 18:39 Body Mass Index 25.58 (67.59 kg, 162.56 cm) ld1 18:39 Pain Scale: Adult ld1 20:04 Pain Scale: Adult kd4 [place] Coma Score: 20:04 Eye Response: spontaneous(4). Motor Response: obeys commands(6). Verbal Response: kd4 oriented(5). Total: 15. 21:07 Eye Response: spontaneous(4). Motor Response: obeys commands(6). Verbal Response: sb4 oriented(5). Total: 15. MDM: 18:41 Patient medically screened. sb4 21:07 Data reviewed: vital signs, nurses notes, lab test result(s), and as a result, I will sb4 discharge patient. Counseling: I had a detailed discussion with the patient and/or guardian regarding the historical points, exam findings, and any diagnostic results supporting the discharge/admit diagnosis, lab results, to return to the emergency department if symptoms worsen or persist or if there are any questions or concerns that arise at home. 05/16 18:49 Order name: CBC with Diff; Complete Time: 20:20 sb4 05/16 18:49 Order name: BMP; Complete Time: 21:05 sb4 05/16 18:49 Order name: Magnesium; Complete Time: 21:05 sb4 05/16 18:52 Order name: Test, Urine; Complete Time: 20:08 sb4 05/16 18:52 Order name: UAM; Complete Time: 20:09 sb4 05/16 18:49 Order name: IV Start; Complete Time: 20:04 sb4 05/16 20:12 Order name: Misc. Order: RECOLLECT - green top; Complete Time: 20:38 ss Administered Medications: 20:03 Drug: metoCLOPramide IVP 10 mg IVP once; over 1 to 2 minutes Route: IVP; Site: right kd4 hand; 20:40 Follow up: Response: No adverse reaction; Marked relief of symptoms ha1 20:03 Drug: diphenhydrAMINE IVP 25 mg IVP once Route: IVP; Site: right hand; kd4 20:40 Follow up: Response: No adverse reaction; Marked relief of symptoms ha1 20:04 Drug: NS 0.9% IV 1000 ml IV at 1 bolus Per protocol; 1000 mL bolus Route: IV; Rate: 1 kd4 bolus; Site: right hand; 21:28 Follow up: Response: No adverse reaction; IV Status: Completed infusion; IV Intake: ha1 1000ml 20:04 Drug: Ketorolac IVP 15 mg IVP once Route: IVP; Site: right hand; kd4 20:40 Follow up: Response: No adverse reaction; Marked relief of symptoms; Pain is decreased ha1 Disposition Summary: 05/16/24 21:08 Discharge Ordered Notes: Location: Home sb4 Problem: new sb4 Symptoms: have improved sb4 Condition: Stable sb4 Diagnosis - Headache sb4 Followup: sb4 - With: Private Physician - When: As needed - Reason: Recheck today's complaints, Re-evaluation by your physician Discharge Instructions: - Discharge Summary Sheet sb4 - General Headache Without Cause sb4 Forms: - Patient Portal Instructions sb4 - Leadership Thank You Letter sb4 - Work release form vk Addendum: 05/24/2024 15:36 Co-signature as Attending Physician, Murali Tipton MD I agree with the assessment and c frye plan of care. Signatures: Dispatcher [employer] Murali Monahan MD MD cha Blanchard, Shelby, RN RN ss Monica Puri RN RN ld1 Pippa Britt PA-C PA-C sb4 Chuck Spaulding RN RN kd4 Dana Perez RN ha1 Corrections: (The following items were deleted from the chart) 05/16 18:50 18:50 CBC+H.LAB.BRZ ordered. EDMS EDMS 18:50 18:50 BASIC METABOLIC PANEL+C.LAB.BRZ ordered. EDMS EDMS 18:50 18:50 MAGNESIUM+C.LAB.MARY ordered. EDMS EDMS
--- NOTE | 2024-05-16 21:08 | ER ---
Nurse's Notes [facility] Name: Tomasa Dahl Age: 43 yrs Sex: Female : 1980 Arrival Date: 05/16/2024 Time: 18:26 Bed 5 Private MD: Diagnosis: Headache Presentation: 05/16 18:39 Chief complaint: Patient states: Migraine since yesterday evening, nausea. Coronavirus ld1 screen: At this time, the client does not indicate any symptoms associated with coronavirus-19. Ebola Screen: No symptoms or risks identified at this time. Initial Sepsis Screen: Does the patient meet any 2 criteria? No. Patient's initial sepsis screen is negative. Does the patient have a suspected source of infection? No. Patient's initial sepsis screen is negative. Risk Assessment: Do you want to hurt yourself or someone else? Patient reports no desire to harm self or others. Onset of symptoms was May 16, 2024. 18:39 Method Of Arrival: Ambulatory ld1 18:39 Acuity: AMY 4 ld1 Triage Assessment: 18:39 Headache History: The patient has had previous headaches and this one is similar to ld1 previous episodes. General: Appears in no apparent distress. comfortable, Behavior is calm, cooperative, appropriate for age. Pain: Complains of pain in face Pain does not radiate. Pain currently is 4 out of 10 on a pain scale. at worst was 9 out of 10 on a pain scale. Quality of pain is described as throbbing, Pain began suddenly, Is continuous, Also complains of no other associated symptoms. EENT: No signs and/or symptoms were reported regarding the EENT system. Neuro: Level of Consciousness is awake, alert, obeys commands, Oriented to person, place, time, situation, Appropriate for age. Cardiovascular: Capillary refill < 3 seconds Patient's skin is warm and dry. Respiratory: Airway is patent Respiratory effort is even, unlabored. GI: Abdomen is flat, non-distended, Reports nausea. : No signs and/or symptoms were reported regarding the genitourinary system. Derm: No signs and/or symptoms reported regarding the dermatologic system. Musculoskeletal: No signs and/or symptoms reported regarding the musculoskeletal system. Historical: - Allergies: 18:38 No Known Allergies; ld1 - PMHx: 18:38 Anemia; Migraine; ld1 - Immunization history:: Adult Immunizations up to date. - Infectious Disease History:: Denies. - Social history:: Smoking status: Patient denies any tobacco usage or history of. Screenin:04 [facility] ED Fall Risk Assessment (Adult) History of falling in the last 3 months, kd4 including since admission No falls in past 3 months (0 pts) Confusion or Disorientation No (0 pts) Intoxicated or Sedated No (0 pts) Impaired Gait No (0 pts) Mobility Assist Device Used No (0 pt) Altered Elimination No (0 pt) Score/Fall Risk Level 0 - 2 = Low Risk Oriented to surroundings, Maintained a safe environment, Assessed \T\ reinforced patient's understanding of fall precautions, Hourly rounding (assess needs \T\ fall precautionary measures) done. Abuse screen: Denies threats or abuse. Nutritional screening: No deficits noted. Tuberculosis screening: No symptoms or risk factors identified. Assessment: 19:50 General: Appears uncomfortable, Behavior is cooperative, anxious. Pain: Complains of ha1 pain in forehead Pain does not radiate. Pain currently is 5 out of 10 on a pain scale. Neuro: Level of Consciousness is awake, alert, obeys commands, Oriented to person, place, time, situation, Reports headache frontal area, Denies weakness dizziness. 19:50 Respiratory: Airway is patent Trachea midline Respiratory effort is even, unlabored, ha1 Respiratory pattern is regular, symmetrical. Derm: Skin is pink, warm \T\ dry. 20:04 Pain: Complains of pain in headache Pain currently is 5 out of 10 on a pain scale. kd4 Neuro: Reports headache frontal area, Denies weakness dizziness. Respiratory: No deficits noted. Denies cough, shortness of breath labored breathing. 21:00 Reassessment: Patient and/or family updated on plan of care and expected duration. Pain ha1 level reassessed. Patient is alert, oriented x 3, equal unlabored respirations, skin warm/dry/pink. PAIN 1/10 Patient states feeling better. Patient states symptoms have improved. Vital Signs: 18:39 BP 128 / 78; Pulse 63; Resp 18; Temp 97.4(TE); Pulse Ox 100% on R/A; Weight 67.59 kg; ld1 Height 5 ft. 4 in. ; Pain 4/10; 20:04 BP 136 / 77; Pulse 55; Resp 18; Temp 98.2(O); Pulse Ox 99% on R/A; Pain 5/10; kd4 21:00 BP 112 / 58; Pulse 65; Resp 19 S; Pulse Ox 100% on R/A; ha1 18:39 Body Mass Index 25.58 (67.59 kg, 162.56 cm) ld1 18:39 Pain Scale: Adult ld1 20:04 Pain Scale: Adult kd4 [place] Coma Score: 20:04 Eye Response: spontaneous(4). Motor Response: obeys commands(6). Verbal Response: kd4 oriented(5). Total: 15. 21:07 Eye Response: spontaneous(4). Motor Response: obeys commands(6). Verbal Response: sb4 oriented(5). Total: 15. ED Course: 18:32 Patient arrived in ED. sj2 18:39 Triage completed. ld1 18:39 Arm band placed on right wrist. ld1 18:41 Pippa Britt PA-C is PHCP. sb4 18:41 Murali Tipton MD is Attending Physician. sb4 20:03 UAM Sent. kd4 20:03 Test, Urine Sent. kd4 20:04 Patient has correct armband on for positive identification. Bed in low position. Side kd4 rails up X2. 20:04 Initial lab(s) drawn, by me, sent to lab. Urine collected: clean catch specimen, clear. kd4 Inserted saline lock: 20 gauge in right hand, using aseptic technique. 21:27 Provided Education on: FOLLOW UP WITH PCP. ha1 21:27 No provider procedures requiring assistance completed. IV discontinued, intact, ha1 bleeding controlled, No redness/swelling at site. Pressure dressing applied. Administered Medications: 20:03 Drug: metoCLOPramide IVP 10 mg IVP once; over 1 to 2 minutes Route: IVP; Site: right kd4 hand; 20:40 Follow up: Response: No adverse reaction; Marked relief of symptoms ha1 20:03 Drug: diphenhydrAMINE IVP 25 mg IVP once Route: IVP; Site: right hand; kd4 20:40 Follow up: Response: No adverse reaction; Marked relief of symptoms ha1 20:04 Drug: NS 0.9% IV 1000 ml IV at 1 bolus Per protocol; 1000 mL bolus Route: IV; Rate: 1 kd4 bolus; Site: right hand; 21:28 Follow up: Response: No adverse reaction; IV Status: Completed infusion; IV Intake: ha1 1000ml 20:04 Drug: Ketorolac IVP 15 mg IVP once Route: IVP; Site: right hand; kd4 20:40 Follow up: Response: No adverse reaction; Marked relief of symptoms; Pain is decreased ha1 Medication: 21:27 VIS not applicable for this client. ha1 Intake: 21:28 IV: 1000ml; Total: 1000ml. ha1 Output: 20:04 Urine: 1ml (Voided); Total: 1ml. kd4 Outcome: 21:08 Discharge ordered by . sb4 21:27 Discharged to home ambulatory, with family, ha1 21: Condition: stable 21:27 Discharge instructions given to patient, family, Instructed on discharge instructions, follow up and referral plans. Demonstrated understanding of instructions, follow-up care, 21:29 Patient left the ED. ha1 Signatures: Monica Puri RN RN ld1 Dana Perez RN RN ha1 Pippa Britt, PA-C PA-C [id number] Chuck Spaulding RN RN kd4 Dominic Giordano sj2 Corrections: (The following items were deleted from the chart) 18:41 18:39 Chief complaint: Patient states: Migraine since yesterday evening. ld1 ld1
[2024-05-16 22:21] VITALS: TEMP 98.2
[2024-05-16 22:22] VITALS: BP 112/58; O2SAT 100
== END 2024-05-16 21:29 | disposition home or self-care (01) ==
LOC: ER 18:26
DX: R51.9 Headache, unspecified (principal); R11.0 Nausea
CPT/HCPCS: 96361; 85025; 81001; 80048; 36415; 83735; 81025; 96375; 96374; 99284; J2765; J1200; J7030

== ENCOUNTER 2024-06-18 15:00 | Emergency (ER) | payer OTHER ==
--- OUTSIDE RECORDS SUMMARY | 2024-06-18 15:03 | XMS REPORT | Continuity of Care Document ---
Author Name Unknown Address [address] [facility] [address] [place] [address] [facility] thconnect Address [address] [place] [address] Care Team Providers Care Substation Electrician Supervisor Name Role Phone BERTIN ZAVALA Primary Care Physician Unavailab Lynne Aguilar Attending Clinician Unavailable TIFFANIE ABREU Attending Clinician Unavailgoyo Frye WHAkua COLBERT Attending Clinician + AKUA FRYE Attending Clinician Unavail able Tiffanie Abreu CNM Attending Clinician [phone] RADIOLOGY Attending Clinician Unavailable Radiology Attending Clinician Unavailable AMANDA JENNINGS Attending Clinician Unavail able Amanda Jennings MD Attending Clinician [phone] CHANDAN_GCBZW_Brendon_Xavier Attending Clinician Unavaila sammi Doctor Unassigned, [place] Attending Clinician U BERTIN oTrres Attending Clinician Unavailable Bertin Sanders Attending Clinician [phone] [facility] Unava ilable Lab, Ang - Db Attending Clinician Unavailable Qiana Cruz Attending Clinician Qiana ALANIZ Attending Clinician Unavailable DOUGLAS SHAVER Attending Clinician Unavailable Pgy3 Attending Clinician Unavailable Douglas Shaver MD Attending Clinician [phone] RASHEED ROMERO Attending Clinician Unavailable TIFFANIE ABREU Admitting Clinician Unavaila sammi [email or web address]_Kadiyala_S Admitting Clinician Unavaila BERTIN Roque Admitting Clinician Unavailable Payers Payer Name Policy Type Policy Number Effective Date Expirati on Date Source [facility] [id number] 2023 00:00:00 [facility] [id number] [facility] Problems Condition Name Condition Details Condition Category Status Onset Date Resolution Date Last Treatment Date Treating Clinician Comments Source Presence of intrauteri ne contracept radha device Presence of intrauteri ne contracept radha device Disease Active 8- 00:00: 00 [facility] Anemia, unspecifie d Anemia, unspecifie d Disease Active 8-11 00:00: 00 [facility] Need for hepatitis C screening test Need for hepatitis C screening test Disease Active 2-03 00:00: 00 [facility] Acute pain of right knee Acute pain of right knee Disease Active 1- 00:00: 00 [facility] Metatarsal jamir of left foot Metatarsal jamir of left foot Disease Active 1-06 00:00: 00 [facility] Left foot pain Left foot pain Disease Active 1-06 00:00: 00 [facility] Iron deficiency anemia due to chronic blood loss Iron deficiency anemia due to chronic blood loss Disease Active 1-06 00:00: 00 [facility] Need for vaccinatio n Need for vaccinatio n Disease Active 1-06 00:00: 00 [facility] Cervical Papanicola ou smear negative within last 12 months Cervical Papanicola ou smear negative within last 12 months Disease Active 8-16 00:00: 00 Overview: Formattin g of this note might be different from the original. 04/2020 NIL pap neg HPV See scanned chart [facility] Well woman exam Well woman exam Disease Active 05-22 00:00: 00 Overview: Formattin g of this note might be different from the original. No pap records received [facility] Excessive or frequent menstruati on Excessive or frequent menstruati on Disease Active 10-29 00:00: 00 [facility] Other general counseling and advice for contracept radha management Other general counseling and advice for contracept radha management Disease Active 06-09 00:00: 00 Overview: Formattin g of this note might be different from the original. 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 [facility] Anemia due to chronic blood loss Iron deficiency anemia secondary to blood loss (chronic) Problem [facility] Allergic rhinitis Non-season al allergic rhinitis, unspecifie d trigger Problem [facility] [id number] Migraine without aura and without status migrainosu s, not intractabl e Problem [facility] [id number] Abnormal mammogram Problem [facility] Premenopau priyank menorrhagi a Excessive bleeding in the premenopau priyank period Problem [facility] Allergies, Adverse Reactions, Alerts Allergy Name Allergy Type Status Severity Reaction(s) Onset Date Inactive Date Treating Clinician Comments Source NO KNOWN ALLERGIE S Drug Class Active [facility] Social History Social Habit Start Date Stop Date Quantity Comments Source History of Tobacco Use [facility] Sex Assigned At [facility] Gender identity [facility] Alcoholic beverage intake 2024-01-30 00:00:00 2024-01-30 00:00:00 0 /d [facility] Alcohol intake 2024-01-02 00:00:00 2024-01-02 00:00:00 0 /d [facility] History of Social function 2023-04-20 00:00:00 2023-04-20 00:00:00 [facility] Exposure to SARS-CoV-2 (event) 2022-12-15 00:00:00 2022-12-25 09:03:00 Not sure [facility] Tobacco use and exposure 2022-04-20 00:00:00 2022-04-20 00:00:00 Smokeless tobacco non-user [facility] Smoking Status Start Date Stop Date Source Never smoked tobacco [facility] Medications Ordered Medication Name Filled Medication Name Start Date Stop Date Current Medication? Ordering Clinician Indication Dosage Frequency Signature (SIG) Comments Components Source ferrous sulfate 325 mg (65 mg iron) tablet 04-22 12:00: 42 04-22 00:00 :00 No [id number] 325mg Take 325 mg by mouth daily. [facility] nystatin 100,000 unit/gram cream 04-20 00:00: 00 Yes [id number] Apply to area(s) 2 (two) times daily. [facility] ibuprofen 600 mg tablet 09-15 00:00: 00 09-30 05:59 :00 No [id number] 600mg Take 1 tablet by mouth every 6 (six) hours as needed for Temp > 38.5 C for up to 14 days. [facility] benzonatate 200 mg capsule 2021-09 00:00: 00 04-20 00:00 :00 No [id number] 200mg Take 1 capsule by mouth 3 (three) times daily as needed for Cough for up to 20 doses. [facility] ibuprofen (IBU) tablet 800 mg 05-01 21:00: 00 05-01 20:36 :00 No [id number] 800mg [facility] levonorgest reL (LILETTA) IUD 1 Device 05-01 20:30: 00 05-01 20:36 :00 No [id number] 1{devic e} [facility] ferrous sulfate 325 mg (65 mg iron) tablet 04-20 09:16: 13 Yes [id number] 325mg Take 325 mg by mouth daily. [facility] CYANOCOBALA MIN, VITAMIN B-12, (VITAMIN B-12 ORAL) 8-11 09:16: 13 Yes Take by mouth. [facility] SUMAtriptan Succinate 50 MG SUMAtriptan Succinate 50 MG No QD SUMAtripta n Succinate 50 MG Diclofenac Sodium 75 MG Diclofenac Sodium 75 MG No 1{table t_as_ne eded} BID Diclofenac Sodium 75 MG Loratadine 10 MG Loratadine 10 MG No 1{table t} QD Loratadine 10 MG Immunizations Ordered Immunization Name Filled Immunization Name Date Status Comments Source HPV9 2022-10-25 00:00:00 Completed [facility] 2022-10-25 00:00:00 Completed [facility] 2022-10-25 00:00:00 Completed [facility] 2022-10-25 00:00:00 Completed [facility] HPV9 2022-10-25 00:00:00 Completed [facility] 2022-10-25 00:00:00 Completed [facility] 2022-10-25 00:00:00 Completed [facility] Influenza Virus Vaccine Quad IM, Preserv and ABX Free 6 MO-64 YRS 2022-09-15 00:00:00 Completed [facility] Influenza Virus Vaccine Quad IM, Preserv and ABX Free 6 MO-64 2022-09-15 00:00:00 Completed [facility] Influenza Virus Vaccine Quad IM, Preserv and ABX Free 6 MO-64 YRS 2022-09-15 00:00:00 Completed [facility] Influenza Virus Vaccine Quad IM, Preserv and ABX Free 6 MO-64 2022-09-15 00:00:00 Completed [facility] Influenza Virus Vaccine Quad IM, Preserv and ABX Free 6 MO-64 YRS 2022-09-15 00:00:00 Completed [facility] Influenza Virus Vaccine Quad IM, Preserv and ABX Free 6 MO-64 2022-09-15 00:00:00 Completed [facility] Influenza Virus Vaccine Quad IM, Preserv and ABX Free 6 MO-64 YRS 2022-09-15 00:00:00 Completed [facility] Influenza Virus Vaccine Quad IM, Preserv and ABX Free 6 MO-64 YRS 2022-09-15 00:00:00 Completed [facility] Influenza Virus Vaccine Quad IM, Preserv and ABX Free 6 MO-64 YRS 2022-09-15 00:00:00 Completed [facility] Influenza Virus Vaccine Quad IM, Preserv and ABX Free 6 MO-64 YRS 2022-09-15 00:00:00 Completed [facility] Influenza Virus Vaccine Quad IM, Preserv and ABX Free 6 MO-64 YRS 2022-09-15 00:00:00 Completed [facility] HPV9 2022-05-22 00:00:00 Completed [facility] HPV9 2022-05-22 00:00:00 Completed [facility] HPV9 2022-05-22 00:00:00 Completed [facility] HPV9 2022-05-22 00:00:00 Completed [facility] HPV9 2022-05-22 00:00:00 Completed [facility] HPV9 2022-05-22 00:00:00 Completed [facility] HPV9 2022-05-22 00:00:00 Completed [facility] HPV9 2022-05-22 00:00:00 Completed [facility] HPV9 2022-05-22 00:00:00 Completed [facility] HPV9 2022-05-22 00:00:00 Completed [facility] HPV9 2022-05-22 00:00:00 Completed [facility] HPV9 2022-05-22 00:00:00 Completed [facility] HPV9 2022-05-22 00:00:00 Completed [facility] HPV9 2022-05-22 00:00:00 Completed [facility] HPV9 2022-05-22 00:00:00 Completed [facility] HPV9 2022-04-20 00:00:00 Completed [facility] HPV9 2022-04-20 00:00:00 Completed [facility] HPV9 2022-04-20 00:00:00 Completed [facility] HPV9 2022-04-20 00:00:00 Completed [facility] HPV9 2022-04-20 00:00:00 Completed [facility] HPV9 2022-04-20 00:00:00 Completed [facility] HPV9 2022-04-20 00:00:00 Completed [facility] HPV9 2022-04-20 00:00:00 Completed [facility] HPV9 2022-04-20 00:00:00 Completed [facility] HPV9 2022-04-20 00:00:00 Completed [facility] HPV9 2022-04-20 00:00:00 Completed [facility] HPV9 2022-04-20 00:00:00 Completed [facility] HPV9 2022-04-20 00:00:00 Completed [facility] HPV9 2022-04-20 00:00:00 Completed [facility] HPV9 2022-04-20 00:00:00 Completed [facility] HPV9 2022-04-20 00:00:00 Completed [facility] Td 2016-08-06 00:00:00 Completed [facility] Td 2016-08-06 00:00:00 Completed [facility] Td 2016-08-06 00:00:00 Completed [facility] TD, NOS 2016-08-06 00:00:00 Completed [facility] TD, NOS 2016-08-06 00:00:00 Completed [facility] TD, NOS 2016-08-06 00:00:00 Completed [facility] TD, NOS 2016-08-06 00:00:00 Completed [facility] TD, NOS 2016-08-06 00:00:00 Completed [facility] TD, NOS 2016-08-06 00:00:00 Completed [facility] TD, NOS 2016-08-06 00:00:00 Completed [facility] TD, NOS 2016-08-06 00:00:00 Completed [facility] TD, NOS 2016-08-06 00:00:00 Completed [facility] TD, NOS 2016-08-06 00:00:00 Completed [facility] TD, NOS 2016-08-06 00:00:00 Completed [facility] TD, NOS 2016-08-06 00:00:00 Completed [facility] TD, NOS 2016-08-06 00:00:00 Completed [facility] Td 2009-09-10 00:00:00 Completed [facility] Td 2009-09-10 00:00:00 Completed [facility] Td 2009-09-10 00:00:00 Completed [facility] TD, NOS 2009-09-10 00:00:00 Completed [facility] TD, NOS 2009-09-10 00:00:00 Completed [facility] TD, NOS 2009-09-10 00:00:00 Completed [facility] TD, NOS 2009-09-10 00:00:00 Completed [facility] TD, NOS 2009-09-10 00:00:00 Completed [facility] TD, NOS 2009-09-10 00:00:00 Completed [facility] TD, NOS 2009-09-10 00:00:00 Completed [facility] TD, NOS 2009-09-10 00:00:00 Completed [facility] TD, NOS 2009-09-10 00:00:00 Completed [facility] TD, NOS 2009-09-10 00:00:00 Completed [facility] TD, NOS 2009-09-10 00:00:00 Completed [facility] TD, NOS 2009-09-10 00:00:00 Completed [facility] TD, NOS 2009-09-10 00:00:00 Completed [facility] TD, NOS Unknown Completed [facility] HPV9 Unknown Completed [facility] Influenza Virus Vaccine Quad IM, Preserv and ABX Free 6 MO-64 YRS (FLUCELVAX) Unknown Completed [facility] TD, NOS Unknown Completed [facility] HPV9 Unknown Completed [facility] Influenza Virus Vaccine Quad IM, Preserv and ABX Free 6 MO-64 YRS (FLUCELVAX) Unknown Completed [facility] TD, NOS Unknown Completed [facility] HPV9 Unknown Completed [facility] Influenza Virus Vaccine Quad IM, Preserv and ABX Free 6 MO-64 YRS (FLUCELVAX) Unknown Completed [facility] TD, NOS Unknown Completed [facility] HPV9 Unknown Completed [facility] Influenza Virus Vaccine Quad IM, Preserv and ABX Free 6 MO-64 YRS (FLUCELVAX) Unknown Completed [facility] TD, NOS Unknown Completed [facility] HPV9 Unknown Completed [facility] Influenza Virus Vaccine Quad IM, Preserv and ABX Free 6 MO-64 YRS (FLUCELVAX) Unknown Completed [facility] TD, NOS Unknown Completed [facility] HPV9 Unknown Completed [facility] Influenza Virus Vaccine Quad IM, Preserv and ABX Free 6 MO-64 YRS (FLUCELVAX) Unknown Completed [facility] TD, NOS Unknown Completed [facility] HPV9 Unknown Completed [facility] Influenza Virus Vaccine Quad IM, Preserv and ABX Free 6 MO-64 YRS (FLUCELVAX) Unknown Completed [facility] TD, NOS Unknown Completed [facility] HPV9 Unknown Completed [facility] Influenza Virus Vaccine Quad IM, Preserv and ABX Free 6 MO-64 YRS (FLUCELVAX) Unknown Completed [facility] TD, NOS Unknown Completed [facility] HPV9 Unknown Completed [facility] Influenza Virus Vaccine Quad IM, Preserv and ABX Free 6 MO-64 YRS (FLUCELVAX) Unknown Completed [facility] Influenza Virus Vaccine Quad IM, Preserv and ABX Free 6 MO-64 YRS (FLUCELVAX) Unknown Completed [facility] TD, NOS Unknown Completed [facility] HPV9 Unknown Completed [facility] Vital Signs Vital Name Observation Time Observation Value Comments S ource Systolic blood pressure 2024-01-30 19:59:00 128 mm[Hg] [facility] Diastolic blood pressure 2024-01-30 19:59:00 75 mm[Hg] [facility] Heart rate 2024-01-30 19:59:00 65 /min [facility] Body temperature 2024-01-30 19:59:00 35.94 Michelle [facility] Respiratory rate 2024-01-30 19:59:00 18 /min [facility] Body height 2024-01-30 19:59:00 162.6 cm [facility] Body weight 2024-01-30 19:59:00 62.506 kg [facility] BMI 2024-01-30 19:59:00 23.65 kg/m2 [facility] height 2024-01-17 08:00:00 64 [in_i] Commo n [facility] weight 2024-01-17 08:00:00 136 [lb_av] Comm on [facility] temperature 2024-01-17 08:00:00 97.4 [degF] Com mon [facility] bmi 2024-01-17 08:00:00 23.34 kg/m2 Comm on [facility] oximetry 2024-01-17 08:00:00 99 % Commo n [facility] respiratory rate 2024-01-17 08:00:00 16 /min [facility] blood pressure systolic 2024-01-17 08:00:00 128 mm[Hg] [facility] blood pressure diastolic 2024-01-17 08:00:00 72 mm[Hg] [facility] Systolic blood pressure 2023-04-20 18:39:00 123 mm[Hg] [facility] Diastolic blood pressure 2023-04-20 18:39:00 66 mm[Hg] [facility] Heart rate 2023-04-20 18:39:00 78 /min [facility] Body temperature 2023-04-20 18:39:00 36.83 Michelle [facility] Respiratory rate 2023-04-20 18:39:00 16 /min [facility] Body height 2023-04-20 18:39:00 162.6 cm [facility] Body weight 2023-04-20 18:39:00 65.499 kg [facility] BMI 2023-04-20 18:39:00 24.79 kg/m2 [facility] Body temperature 2022-10-25 14:10:00 36.33 Michelle [facility] Systolic blood pressure 2022-10-13 20:00:00 119 mm[Hg] [facility] Diastolic blood pressure 2022-10-13 20:00:00 62 mm[Hg] [facility] Heart rate 2022-10-13 20:00:00 70 /min [facility] Body temperature 2022-10-13 20:00:00 36.83 Michelle [facility] Body height 2022-10-13 20:00:00 162.6 cm [facility] Body weight 2022-10-13 20:00:[address] [facility] BMI 2022-10-13 20:00:00 24.55 kg/m2 [facility] Oxygen saturation in Arterial blood by Pulse oximetry 2022-10-13 20:00:00 100 /min [facility] Systolic blood pressure 2022-09-15 14:48:00 107 mm[Hg] [facility] Diastolic blood pressure 2022-09-15 14:48:00 64 mm[Hg] [facility] Heart rate 2022-09-15 14:48:00 69 /min [facility] Body temperature 2022-09-15 14:48:00 36.72 Michelle [facility] Body height 2022-09-15 14:48:[address] [facility] Body weight 2022-09-15 14:48:00 64.411 kg [facility] BMI 2022-09-15 14:48:00 24.37 kg/m2 [facility] Oxygen saturation in Arterial blood by Pulse oximetry 2022-09-15 14:48:00 100 /min [facility] Systolic blood pressure 2022-08-31 19:00:00 115 mm[Hg] [facility] Diastolic blood pressure 2022-08-31 19:00:00 66 mm[Hg] [facility] Heart rate 2022-08-31 19:00:00 70 /min [facility] Respiratory rate 2022-08-31 19:00:00 16 /min [facility] Oxygen saturation in Arterial blood by Pulse oximetry 2022-08-31 19:00:00 100 /min [facility] Body temperature 2022-08-31 16:52:00 36.5 Michelle [facility] Body height 2022-08-31 16:52:[address] [facility] Body weight 2022-08-31 16:52:00 64.411 kg [facility] BMI 2022-08-31 16:52:00 24.37 kg/m2 [facility] Systolic blood pressure 2022-05-22 14:03:00 119 mm[Hg] [facility] Diastolic blood pressure 2022-05-22 14:03:00 68 mm[Hg] [facility] Heart rate 2022-05-22 14:03:00 63 /min [facility] Body temperature 2022-05-22 14:03:00 36.28 Michelle [facility] Respiratory rate 2022-05-22 14:03:00 18 /min [facility] Body height 2022-05-22 14:03:00 162.6 cm [facility] Body weight 2022-05-22 14:03:00 64.774 kg [facility] BMI 2022-05-22 14:03:00 24.51 kg/m2 [facility] Systolic blood pressure 2022-05-01 18:01:00 119 mm[Hg] [facility] Diastolic blood pressure 2022-05-01 18:01:00 64 mm[Hg] [facility] Heart rate 2022-05-01 18:01:00 65 /min [facility] Body temperature 2022-05-01 18:01:00 35.44 Michelle [facility] Body height 2022-05-01 18:01:00 162.6 cm [facility] Body weight 2022-05-01 18:01:00 62.914 kg [facility] BMI 2022-05-01 18:01:00 23.81 kg/m2 [facility] Procedures Procedure Date / Time Performed Performing Clinician Source BI DIAGNOSTIC TOMOSYNTHESIS LEFT 2024-01-02 19:57:05 Tiffanie Abreu [facility] BI SELF-REQUESTED SCREENING TOMOSYNTHESIS BILATERAL 2023-12-07 20:58:15 Tiffanie Abreu [facility] CBC WITH DIFF 2023-04-20 19:19:00 Tiffanie Abreu [facility] ASSIGNMENT OF BENEFITS 2023-04-20 18:25:28 Docto r Unassigned, [place] [facility] PATIENT CORRESPONDENCE (LETTERS, USPS DOCUMENTATION) 2023-01-26 05:01:00 Doctor Unassigned, [place] [facility] CONSENT/REFUSAL FOR DIAGNOSIS AND TREATMENT 2022-12-06 15:52:20 Doctor Unassigned, [place] [facility] ASSIGNMENT OF BENEFITS 2022-12-06 15:50:30 Docto r Unassigned, [place] [facility] GARDASIL 9 (HPV 9V) VACCINE 2022-10-25 14:12:18 Akua Frye [facility] POCT TEST 2022-09-15 15:32:00 Bertin Zavala [facility] FLU VACC (), 6 MO-64 YRS, .5ML, IM, QUAD (FLUCELVAX) 2022-09-15 15:25:14 Bertin Zavala [facility] RAPID INFLUENZA A/B 2022-08-31 18:03:00 Qiana Alaniz [facility] CONSENT/REFUSAL FOR DIAGNOSIS AND TREATMENT 2022-08-31 16:46:34 Doctor Unassigned, [place] [facility] GARDASIL 9 (HPV 9V) VACCINE 2022-05-22 13:54:09 Akua Frye [facility] PAP SMEAR-LIQUID BASED-CP 2022-05-01 20:15:00 Jennifer Gutierres [facility] Encounters Start Date/Time End Date/Time Encounter Type Admission Type Attending Clinicians Care Facility Care Department Encounter ID Source 2024-01-17 08:01:00 Outpatient Steffen Lynne [facility] [id number] [facility] 2024-05-01 13:45:00 2024-05-01 13:45:00 Outpatient TIFFANIE REED [facility] [id number] [facility] 2024-02-11 00:00:00 2024-02-11 00:00:00 (TEL) [facility] [id number] [facility] 2024-02-05 00:00:00 2024-02-05 07:48:37 Telephone Akua Frye [facility] AC/DC RE[facility]ER [facility] 1.2.840.114 350.1.13.10 4.2.7.2.686 [id number] [facility] 2024-01-30 14:30:00 2024-01-30 15:26:22 Outpatient R AKUA FRYE [facility] [id number] [facility] 2024-01-30 14:30:00 2024-01-30 15:26:22 Office Visit Akua Frye [facility] AC/DC REWINDER [facility] 1..840.114 350.1.13.10 4.2.7.2.686 [id number] [facility] 2024-01-17 00:00:00 2024-01-17 00:00:00 PREV VISIT EST AGE 40-64 [facility] [id number] [facility] 2024-01-03 08:00:00 2024-01-03 08:00:00 Outpatient R AKUA FREY [facility] [id number] [facility] 2024-01-03 00:00:00 2024-01-03 00:00:00 Telephone Akua Frye [facility] AC/DC REWINDER [facility] 1..840.114 350.1.13.10 4.2.7.2.686 [id number] [facility] 2024-01-02 13:31:18 2024-01-02 23:59:00 Outpatient R TIFFANIE ABREU [facility] [id number] [facility] 2024-01-02 13:31:18 2024-01-02 23:59:00 Hospital Encounter Tiffanie Abreu [facility] 1.2.840.114 350.1.13.10 4.2.7.2.686 [id number] [facility] 2024-01-02 13:28:38 2024-01-02 13:30:00 Hospital Encounter Radiology [facility] 1.2.840.114 350.1.13.10 4.2.7.2.686 [id number] [facility] 2023-12-20 00:00:00 2023-12-20 00:00:00 Telephone Akua Frye [facility] AC/DC REWINDER [facility] 1.2.840.114 350.1.13.10 4.2.7.2.686 [id number] [facility] 2023-12-10 00:00:00 2023-12-10 00:00:00 Telephone Tiffanie Abreu [facility] AC/DC REWINDER [facility] 1.2.840.114 350.1.13.10 4.2.7.2.686 [id number] [facility] 2023-12-10 00:00:00 2023-12-10 00:00:00 Case Management Tiffanie Abreu [facility] 1.2.840.114 350.1.13.10 4.2.7.2.686 [id number] [facility] 2023-12-07 15:39:02 2023-12-07 23:59:00 Outpatient R AMANDA JENNINGS [facility] [id number] [facility] 2023-12-07 15:39:02 2023-12-07 23:59:00 Hospital Encounter Amanda Jennings [facility] 1.2.840.114 350.1.13.10 4.2.7.2.686 [id number] [facility] 2023-10-15 00:00:00 2023-10-15 00:00:00 Outpatient R TIFFANIE ABREU [facility] [id number] [facility] 2023-07-10 00:00:00 2023-07-10 00:00:00 Outpatient GC_GCBZW_Ka diyala_S PRIV PRIV [id number] [facility] 2023-07-06 00:00:00 2023-07-06 00:00:00 Outpatient GC_GCBZW_Ka diyala_S PRIV PRIV [id number] [facility] 2023-04-23 00:00:00 2023-04-23 00:00:00 Case Management Tiffanie Abreu [facility] AC/DC REWINDER [facility] MATERNAL & CHILD [facility] 1.840.114 350.1.13.10 4.2.7.2.686 [id number] [facility] 2023-04-23 00:00:00 2023-04-23 00:00:00 Telephone Tiffanie Abreu [facility] AC/DC REWINDER [facility] MATERNAL & CHILD [facility] .840.114 350.1.13.10 4.2.7.2.686 [id number] [facility] 2023-04-20 13:30:00 2023-04-20 14:20:04 Outpatient R TIFFANIE ABREU [facility] [id number] [facility] 2023-04-20 13:30:00 2023-04-20 14:20:04 Office Visit Tiffanie Abreu Damilola C [facility] AC/DC REWINDER [facility] .840.114 350.1.13.10 4.2.7.2.686 [id number] [facility] 2023-04-20 00:00:00 2023-04-20 00:00:00 Orders Only Doctor Unassigned, [place] [facility] 1.114 350.1.13.10 4.2.7.2.686 [id number] [facility] 2023-01-26 14:45:00 2023-01-26 14:45:00 Outpatient R AKUA FRYE [facility] [id number] [facility] 2023-01-26 00:00:00 2023-01-26 00:00:00 Orders Only Doctor Unassigned, [place] [facility] 1.84114 350.1.13.10 4.2.7.2.686 [id number] [facility] 2022-12-25 09:30:00 2022-12-25 09:30:00 Outpatient R BERTIN ZAVALA [facility] [id number] [facility] 2022-12-13 09:15:00 2022-12-13 09:15:00 Outpatient R AKUA FRYE [facility] [id number] [facility] 2022-12-06 10:50:56 2022-12-06 23:59:00 Outpatient R BERTIN ZAVALA [facility] [id number] [facility] 2022-12-06 10:50:56 2022-12-06 23:59:00 Hospital Encounter Bertin Zavala [facility] 1.840.114 350.1.13.10 4.2.7.2.686 [id number] [facility] 2022-10-25 08:00:00 2022-10-25 08:00:14 Outpatient R AKUA FRYE [facility] [id number] [facility] 2022-10-25 08:00:00 2022-10-25 08:00:14 Nurse Visit Visit, Kavon-Rmchp Akua Krishnamurthy [facility] AC/DC REWINDER [facility] MATERNAL & [facility] 1.840.114 350.1.13.10 4.2.7.2.686 [id number] [facility] 2022-10-23 09:00:00 2022-10-23 09:00:00 Outpatient R AKUA FRYE [facility] [id number] [facility] 2022-10-13 14:30:00 2022-10-13 14:45:00 Lead Technical Writer Visit Lab, Kavon Zavala [facility] EVIE?[facility] 1..840.114 350.1.13.10 4.2.7.2.686 [id number] [facility] 2022-10-13 14:00:00 2022-10-13 14:31:16 Outpatient R BERTIN ZAVALA [facility] [id number] [facility] 2022-10-13 14:00:00 2022-10-13 14:31:16 Office Visit Sally [facility] EVIE?[facility] 1..840.114 350.1.13.10 4.2.7.2.686 [id number] [facility] 2022-09-18 00:00:00 2022-09-18 00:00:00 Patient Secure Msg Doctor Unassigned, [place] [facility] 1..840.114 350.1.13.10 4.2.7.2.686 [id number] [facility] 2022-09-15 10:30:03 2022-09-15 11:14:00 Outpatient R BERTIN ZAVALA [facility] [id number] [facility] 2022-09-15 09:30:00 2022-09-15 09:45:00 Lead Technical Writer Visit Lab, [facility] 1..840.114 350.1.13.10 4.2.7.2.686 [id number] [facility] 2022-09-15 09:00:00 2022-09-15 09:28:09 Office Visit [facility] 1.2.840.114 350.1.13.10 4.2.7.2.686 [id number] [facility] 2022-09-15 00:00:00 2022-09-15 00:00:00 Telephone Bertin Zavala [facility] 1.2.840.114 350.1.13.10 4.2.7.2.686 [id number] [facility] 2022-09-06 15:00:00 2022-09-06 15:00:00 Outpatient R BERTIN ZAVALA [facility] [id number] [facility] 2022-08-31 10:53:00 2022-08-31 13:07:00 Emergency Qiana Alaniz [facility] 1..840.114 350.1.13.10 4.2.7.2.686 [id number] [facility] 2022-08-31 10:53:00 2022-08-31 13:07:00 Emergency X Qiana ALANIZ [facility] ERT [id number] [facility] 2022-05-23 00:00:00 2022-05-23 00:00:00 Telephone Akua Frye [facility] AC/DC REWINDER [facility] MATERNAL & CHILD HEALTH [facility] 1..840.114 350.1.13.10 4.2.7.2.686 [id number] [facility] 2022-05-22 08:30:00 2022-05-22 09:05:30 Outpatient AKUA KELLEY [facility] [id number] [facility] 2022-05-22 08:30:00 2022-05-22 09:05:30 Nurse Visit Visit, Kavon-Rmchp Nurse Akua Frye [facility] AC/DC REWINDER [facility] 1.84.114 350.1.13.10 4.2.7.2.686 [id number] [facility] 2022-05-02 00:00:00 2022-05-02 00:00:00 Orders Only Doctor Unassigned, [place] [facility] 1.0.114 350.1.13.10 4.2.7.2.686 [id number] [facility] 2022-05-01 13:30:00 2022-05-01 15:10:21 Outpatient R DOUGLAS SHAVER [facility] [id number] [facility] 2022-05-01 13:30:00 2022-05-01 15:10:21 Outpatient R DOUGLAS SHAVER [facility] [id number] [facility] 2022-05-01 13:30:00 2022-05-01 15:10:21 Office Visit Pgy3 Douglas Shaver [facility] 1..114 350.1.13.10 4.2.7.2.686 [id number] [facility] 2022-04-20 09:00:00 2022-04-20 10:08:33 Office Visit Akua Frye [facility] AC/DC REWINDER [facility] 1.84.114 350.1.13.10 4.2.7.2.686 [id number] [facility] 2022-04-20 09:00:00 2022-04-20 10:08:33 Outpatient R AKUA FRYE [facility] [id number] [facility] 2022-04-20 00:00:00 2022-04-20 00:00:00 Orders Only Doctor Unassigned, [place] [facility] 1.840.114 350.1.13.10 4.2.7.2.686 [id number] [facility] 2022-03-21 14:30:00 2022-03-21 14:30:00 Outpatient RASHEED SHRESTHA [facility] [id number] [facility] Results Test Description Test Time Test [...] Bilateral BI-RADS Category: Left 1 - Negative [facility] BI SELF-REQUESTED SCREENING TOMOSYNTHESIS BILATERAL 2023-11-10 9 [...] 0 - Incomplete: Needs Additional [id number] 15:32:00* Test Item Value Reference Range Interpretation Comme nts POCT PREG (test code = 1605) Negative On board controls acceptable with C Line (test code = 3574) Yes POCT PREG LOT # (test code = 3575) POCT PREG TEST DATE ( test code = 3576) Lab Interpretation (test cod e = [id number]) Normal [facility] Notes Date/Time Note Provider Source 2024-02-05 09:49:48 Patient informed of results and need for repeat labs, pt refused and stated she did not want to get poked again and is not concerned for exposure. [facility] 2024-02-05 07:46:47 Called patent, no answer, left v mail Please have pt return to clinic for repeat syphilis screening her initial results were inconclusive. .IZABELA Juan 02/05/2024 7:47 AM T [facility] 2024-01-03 07:53:53 Noted. T [facility] 2024-01-03 07:50:22 Called patient and rescheduled appointment. T Lit Rodriguez [facility] 2024-01-03 06:50:17 Cecile Dahl is a 43 year old female Pt is requesting call back to reschedule appt for IUD placement Thank you Jaimie Cazares [facility] 2023-12-20 13:32:25 Called pt, pt has HTW and [facility]. Desires diagnostics to be covered by private insurance. Called radiology to clarify and transferred patient. Rebeca Flannery RN 12/20/23 1:34 PM Rebeca Flannery RN [facility] 2023-12-20 12:56:46 Patient states that she was told to take to [facility] doctor before scheduling appointment with Radiology. Lit Rodriguez [facility] 2023-12-20 12:17:49 Copied from [facility] #[id number]. Topic: Clinical - Medical Advice >> Dec 20, 2023 12:16 PM Patient Lead Mechanic wrote: Pt is requesting call back to schedule fu for scheduling radiology appointments, Radiology said clinic has to schedule. Please call [phone] (home) [phone] (work) GRACIELA Bearden [facility] 2023-12-10 11:10:26 Pt notified of [...] understanding. MAYLIN CHRISTIANSEN RN 12/10/2023 11:13 AM [facility] 2023-12-10 10:40:59 Patient self requested screening mammogram.However, it showed left breast 9 mm focal asymmetry in the outer central region, 4 cm from the nipple. She needs diagnostic mammogram and breast ultrasound which I ordered. She needs BCCS screening prior to imaging if she still has HTW. [facility] 2023-04-23 11:16:18 Formatting of this n ote might be different from the original. Patient informed of results and recommendations, verbalized understanding. [facility] 2023-04-23 10:11:48 Formatting of this n ote might be different from the original. Please call patient and let her know hgb has only increase a small amount. She should continue iron supplements BID, increase iron rich foods, and follow up with PCP. [facility]
[2024-06-18] MEDS ORDERED: dexAMETHasone 10 MG/ML VIAL ONE (15:17)
[2024-06-18] MEDS ORDERED: METOCLOPRAMIDE 10 MG/2mL INJ ONE (15:18)
[2024-06-18] MEDS ORDERED: KETOROLAC 30 MG/ML INJ ONE (15:18)
[2024-06-18] MEDS ORDERED: DIPHENHYDRAMINE 50 MG/ML VIAL ONE (15:18)
[2024-06-18] MEDS ORDERED: NA CHLORIDE 0.9% 1,000 ML ONE (15:18)
[2024-06-18 15:50] LABS: Specific Gravity 1.009 (1.005-1.030); Sqamous Epithelial <5 /HPF (None Seen); Urine Bacteria <20 /HPF (<20); Urine Bilirubin NEGATIVE (Negative); Urine Blood 2+ (Negative); Urine Clarity Clear (Clear); Urine Color Colorless (Yellow); Urine Crystals Unidentified Few /HPF (None Seen); Urine Culture Reflex Order NOT NEEDED; Urine Glucose NEGATIVE (Negative); Urine Ketones NEGATIVE (Negative); Urine Microscopic Reflex YN ORDER UMIC; Urine Nitrite NEGATIVE (Negative); Urine Protein NEGATIVE (Negative); Urine RBC 21-50 /HPF (None Seen); Urine Urobilinogen Normal (Normal); Urine WBC <5 /HPF (<5)
[2024-06-18 15:51] LABS: Specific Gravity 1.009 (1.005-1.030)
[2024-06-18 15:55] LABS: Absolute Eosinophils 0.1 K/uL (0-0.5); Absolute Lymphocytes (CBC) 1.3 K/uL (0.7-4.9); Absolute Monocytes 0.3 K/uL (0.1-1.3); Absolute Neutrophil 2.8 K/uL (1.8-8.0); Basophils % 0.6 % (0-1.3); Hematocrit 37.7 % (36.0-45.0); Hemoglobin 13.2 g/dL (12.0-15.0); MCH 32.6 pg (27.0-35.0); MCHC 34.9 g/dL (32.0-36.0); MCV 93.3 fL (80-100); MPV 8.4 fL (7.6-11.3); Monocytes % 7.7 % (3.3-12.3); Neutrophils % 61.7 % (41.7-73.7); Nucleated Red Blood Cells % 0.1 % (0-0); Platelets 170 thou/uL (152-406); RBC Red Blood Cell Count 4.04 M/uL (3.86-4.86); Red Cell Distribution Width 12.1 % (12.1-15.2)
[2024-06-18 16:05] LABS: Albumin 3.8 g/dL (3.4-5.0); Albumin/Globulin Ratio 1.1 (1.1-1.8); Anion Gap 7.7 mEq/L (5.0-15.0); Globulin 3.5 g/dL (2.3-3.5); Potassium 3.7 mEq/L (3.5-5.1); Protein, Total 7.3 g/dL (6.4-8.2)
--- NOTE | 2024-06-18 16:59 | RAD REPORT ---
EXAMINATION: Transvaginal Study Probe CLINICAL INDICATION: Female 43 years old.[facility] 06/15/24 VAGINAL BLEEDING Bed Name: IW1 TECHNIQUE: Real-time ultrasonography of the pelvis was performed transvaginally. Color and spectral D oppler evaluation of the ovaries was performed. COMPARISON: 11/16/2018 FINDINGS: UTERUS AND CERVIX: The uterus measures 7.3 cm in length. It is retroflexed. The uterus is otherwise n ormal. No masses seen The endometrium is grossly normal in thickness, although difficult to visualize. IUD in place. RIGHT OVARY: Normal The right ovary measures 2.8 x 1.5 x 1.8 cm. Normal color and spectral Doppler evaluation of the right ovary.. LEFT OVARY: Normal The left ovary measures 3.1 x 1.3 x 2.2 cm. Normal color and spectral Doppler evaluation of the left ovary.. FREE FLUID: No free fluid. IMPRESSION: No suspicious in the pelvis. IUD in place.
--- NOTE | 2024-06-18 17:13 | ER ---
Nurse's Notes [facility] Name: Tomasa Dahl Age: 43 yrs Sex: Female : 1980 Arrival Date: 06/18/2024 Time: 15:00 Bed 15 Private MD: Diagnosis: Irregular menstruation, unspecified;Migraine without aura, not intractable Presentation: 06/18 15:07 Chief complaint: Patient states: Heavy vaginal bleeding with migraine for 2-3 days. ll1 Fatigue started today. Coronavirus screen: Client denies travel out of the [place] in the last 14 days. At this time, the client does not indicate any symptoms associated with coronavirus-19. Ebola Screen: Patient denies travel to an Ebola-affected area in the 21 days before illness onset. Initial Sepsis Screen: Does the patient meet any 2 criteria? No. Patient's initial sepsis screen is negative. Does the patient have a suspected source of infection? No. Patient's initial sepsis screen is negative. Risk Assessment: Do you want to hurt yourself or someone else? Patient reports no desire to harm self or others. Onset of symptoms was June 16, 2024. 15:07 Method Of Arrival: Ambulatory ll1 15:07 Acuity: AMY 3 ll1 Triage Assessment: 15:07 General: Appears uncomfortable, Behavior is calm, cooperative, appropriate for age. ll1 Pain: Complains of pain in head Pain currently is 8 out of 10 on a pain scale. Quality of pain is described as aching. Neuro: Reports headache weakness. : Reports vaginal bleeding that is heavy flow. Historical: - Allergies: 15:07 No Known Drug Allergies; ll1 - PMHx: 15:07 Anemia; Migraine; ll1 - Immunization history:: Adult Immunizations up to date. - Infectious Disease History:: Denies. - Social history:: Smoking status: Patient denies any tobacco usage or history of. Screenin:21 [facility] ED Fall Risk Assessment (Adult) History of falling in the last 3 months, mb9 including since admission No falls in past 3 months (0 pts) Confusion or Disorientation No (0 pts) Intoxicated or Sedated No (0 pts) Impaired Gait No (0 pts) Mobility Assist Device Used No (0 pt) Altered Elimination No (0 pt) Score/Fall Risk Level 0 - 2 = Low Risk Oriented to surroundings, Maintained a safe environment, Educated pt \T\ family on fall prevention, incl call for assistance when getting out of bed. Abuse screen: Denies threats or abuse. Nutritional screening: No deficits noted. Tuberculosis screening: No symptoms or risk factors identified. Assessment: 15:41 General: Appears in no apparent distress. Behavior is calm, cooperative. Pain: mb9 Complains of pain in head Pain does not radiate. Quality of pain is described as throbbing, Pain began 2-3 days ago. Is continuous. Neuro: Vargas Agitation-Sedation Scale (RASS): 0 - Alert and Calm Level of Consciousness is awake, alert, obeys commands, Oriented to person, place, time, situation, Appropriate for age. Cardiovascular: Patient's skin is warm and dry. Respiratory: Airway is patent Respiratory effort is even, unlabored, Respiratory pattern is regular, symmetrical. GI: Abdomen is flat, non-distended, Bowel sounds present X 4 quads. Abd is soft and non tender X 4 quads. : Urine is clear, Reports vaginal bleeding that is bright red, heavy flow. EENT: No signs and/or symptoms were reported regarding the EENT system. Derm: Skin is pink, warm \T\ dry. Musculoskeletal: Range of motion: intact in all extremities. 17:04 Reassessment: Patient appears in no apparent distress at this time. No changes from mb9 previously documented assessment. Patient and/or family updated on plan of care and expected duration. Pain level reassessed. Patient is alert, oriented x 3, equal unlabored respirations, skin warm/dry/pink. Vital Signs: 15:07 BP 154 / 74; Pulse 63; Resp 16; Pulse Ox 100% ; Weight 63.5 kg; Height 5 ft. 4 in. ; ll1 Pain 6/10; 17:03 BP 120 / 65; Pulse 78; Resp 18; Pulse Ox 100% on R/A; mb9 15:07 Body Mass Index 24.03 (63.50 kg, 162.56 cm) ll1 15:07 Pain Scale: Adult ll1 ED Course: 15:02 Patient arrived in ED. im 15:02 Miguelina Engle FNP-C is [facility]. kb 15:02 Ori Dowd MD is Attending Physician. kb 15:07 Arm band placed on. ll1 15:09 Triage completed. ll1 15:12 Patient placed in an exam room, on a stretcher. iw 15:21 Naima Philip, NINO is Primary Nurse. mb9 15:22 Placed in gown. Bed in low position. Call light in reach. Side rails up X 1. Provided mb9 Education on: press call light if needing anything. Client placed on continuous cardiac and pulse oximetry monitoring. NIBP monitoring applied. 15:22 No provider procedures requiring assistance completed. mb9 15:40 Test, Urine Sent. mb9 15:40 Urinalysis w/ reflexes Sent. mb9 15:40 CMP Sent. mb9 15:40 CBC with Diff Sent. mb9 15:41 Initial lab(s) drawn, by nj, sent to lab. Urine collected: clean catch specimen, clear. mb9 Inserted saline lock: 22 gauge forearm, using aseptic technique. Blood collected. Flushed with 10 mL NS. 16:27 US Transvaginal Study (Probe) In Process Unspecified. EDMS 17:18 IV discontinued, intact, bleeding controlled, No redness/swelling at site. Pressure mb9 dressing applied. Administered Medications: 15:30 Drug: metoCLOPramide IVP 10 mg IVP once; over 1 to 2 minutes Route: IVP; Site: right mb9 forearm; 17:09 Follow up: Response: No adverse reaction mb9 15:32 Drug: Ketorolac IVP 15 mg IVP once Route: IVP; Site: right forearm; mb9 17:09 Follow up: Response: No adverse reaction mb9 15:35 Drug: diphenhydrAMINE IVP 12.5 mg IVP once Route: IVP; Site: right forearm; mb9 17:09 Follow up: Response: No adverse reaction mb9 15:37 Drug: Decadron - Dexamethasone IVP 10 mg IVP once Route: IVP; Site: right forearm; mb9 17:09 Follow up: Response: No adverse reaction mb9 15:40 Drug: NS 0.9% IV 1000 ml IV at 1000 ml once Route: IV; Rate: 1000 ml; Site: right mb9 forearm; 17:09 Follow up: Response: No adverse reaction; IV Status: Completed infusion mb9 Medication: 15:22 VIS not applicable for this client. mb9 Outcome: 17:13 Discharge ordered by . sada 17:18 Discharged to home ambulatory, mb9 17:18 Condition: stable 17:18 Discharge instructions given to patient, Instructed on discharge instructions, follow up and referral plans. Demonstrated understanding of instructions, follow-up care, 17:19 Patient left the ED. mb9 Signatures: Dispatcher [employer] EDMiguelina Santiago, MEDICAL SPECIALIST-C MEDICAL SPECIALIST-CkKavitha Danielle, RN Jocelyne Carlin RN RN ll1 Naima Philip RN RN mb9 Yamilet Hernandez
--- NOTE | 2024-06-18 17:13 | EDPHYS ---
Physician Documentation [facility] Name: Tomasa Dahl Age: 43 yrs Sex: Female : 1980 Arrival Date: 06/18/2024 Time: 15:00 Bed 15 Private MD: ED Physician Ori Dowd HPI: 06/18 15:05 This 43 yrs old Female presents to ER via Unassigned with complaints of General kb Weakness, Vaginal Bleeding, Headache, Dizziness. 15:05 Pt is a 43 year old female who presents for heavy vaginal bleeding for 2-3 days. States kb she felt lightheaded when picking her daughter up just mining [employer] so she came for evaluation. Also reports migraine that started a couple of days ago that is similar to previous. . Historical: - Allergies: 15:07 No Known Drug Allergies; ll1 - PMHx: 15:07 Anemia; Migraine; ll1 - Immunization history:: Adult Immunizations up to date. - Infectious Disease History:: Denies. - Social history:: Smoking status: Patient denies any tobacco usage or history of. ROS: 15:05 Constitutional: As per HPI kb Exam: 15:05 Constitutional: This is a well developed, well nourished patient who is awake, alert, kb and in no acute distress. Head/Face: Normocephalic, atraumatic. ENT: Moist Mucous membranes Cardiovascular: Regular rate Respiratory: Respirations even and unlabored. No increased work of breathing. Talking in full sentences Abdomen/GI: Soft, non-tender. No distention Skin: Warm, dry with normal turgor. Normal color. MS/ Extremity: Pulses equal, no cyanosis. Neurovascular intact. Full, normal range of motion. Neuro: Awake and alert, GCS 15, oriented to person, place, time, and situation. Moves all extremities. Normal gait. Vital Signs: 15:07 BP 154 / 74; Pulse 63; Resp 16; Pulse Ox 100% ; Weight 63.5 kg; Height 5 ft. 4 in. ; ll1 Pain 6/10; 17:03 BP 120 / 65; Pulse 78; Resp 18; Pulse Ox 100% on R/A; mb9 15:07 Body Mass Index 24.03 (63.50 kg, 162.56 cm) ll1 15:07 Pain Scale: Adult ll1 MDM: 15:03 Patient medically screened. kb 17:12 Differential diagnosis: anemia, fibroid, migraine, abnormal electrolytes. Data kb reviewed: vital signs, nurses notes. Counseling: I had a detailed discussion with the patient and/or guardian regarding the historical points, exam findings, and any diagnostic results supporting the discharge/admit diagnosis, lab results, radiology results, the need for outpatient follow up, a family practitioner, to return to the emergency department if symptoms worsen or persist or if there are any questions or concerns that arise at home. 06/18 15:09 Order name: CBC with Diff; Complete Time: 16:05 kb 06/18 15:09 Order name: CMP; Complete Time: 16:06 kb 06/18 15:09 Order name: Test, Urine; Complete Time: 16:05 kb 06/18 15:09 Order name: Urinalysis w/ reflexes; Complete Time: 16:05 kb 06/18 15:09 Order name: US Transvaginal Study (Probe); Complete Time: 17:00 kb 06/18 15:09 Order name: IV Start; Complete Time: 15:40 kb Administered Medications: 15:30 Drug: metoCLOPramide IVP 10 mg IVP once; over 1 to 2 minutes Route: IVP; Site: right mb9 forearm; 17:09 Follow up: Response: No adverse reaction mb9 15:32 Drug: Ketorolac IVP 15 mg IVP once Route: IVP; Site: right forearm; mb9 17:09 Follow up: Response: No adverse reaction mb9 15:35 Drug: diphenhydrAMINE IVP 12.5 mg IVP once Route: IVP; Site: right forearm; mb9 17:09 Follow up: Response: No adverse reaction mb9 15:37 Drug: Decadron - Dexamethasone IVP 10 mg IVP once Route: IVP; Site: right forearm; mb9 17:09 Follow up: Response: No adverse reaction mb9 15:40 Drug: NS 0.9% IV 1000 ml IV at 1000 ml once Route: IV; Rate: 1000 ml; Site: right mb9 forearm; 17:09 Follow up: Response: No adverse reaction; IV Status: Completed infusion mb9 Disposition: 17:41 Co-signature as Attending Physician, Ori Dowd MD I reviewed the patient's care rn provided by the Advanced Practice Provider and agree with the diagnosis and treatment plan. Disposition Summary: 10/09/24 17:13 Discharge Ordered Notes: Location: Home kb Condition: Stable kb Diagnosis - Irregular menstruation, unspecified kb - Migraine without aura, not intractable kb Followup: kb - With: Emergency Department - When: As needed - Reason: Worsening of condition Followup: kb - With: Private Physician - When: 2 - 3 days - Reason: Recheck today's complaints, Continuance of care, Re-evaluation by your physician Discharge Instructions: - Migraine Headache, [id number] kb - Abnormal Uterine Bleeding, [id number] kb - Discharge Summary Sheet mb9 Forms: - Medication Reconciliation Form kb - Antibiotic Education kb - Prescription Opioid Use kb - Patient Portal Instructions kb - Leadership Thank You Letter kb - School release form mb9 - Work release form mb9 Signatures: Dispatcher [employer] EDMiguelina Santiago, CARLOS-C CARLOS-Ori Urbina MD MD rn Lewis, Lynsay, RN RN ll1 Naima Philip RN RN mb9 Corrections: (The following items were deleted from the chart) 15:10 15:10 Transvaginal Study (Probe)+[email or web address] ordered. EDMS EDMS
[2024-06-18 17:49] VITALS: O2SAT 100
[2024-06-18 17:51] VITALS: BP 154/74
== END 2024-06-18 17:19 | disposition home or self-care (01) ==
LOC: ER 15:00
DX: N92.6 Irregular menstruation, unspecified (principal); G43.009 Migraine without aura, not intractable, without status migrainosus
CPT/HCPCS: 85025; 81001; 36415; 81025; 80053; 76830; J2765; J1200; J1100; J7030